=== PATIENT | female | born 1945 | race African-American/Black ===

== ENCOUNTER 2018-02-13 16:59 | Inpatient (IN) | payer MEDICARE, BC ==
[~2018-02-13] VITALS: Ht 175.3 cm; Wt 72.8 kg
[2018-02-13 17:39] LABS: BASOPHILS % (AUTO) 0.9 % (0.0-2.0); EOSINOPHILS % (AUTO) 0.1 % (0.0-3.0); HEMOGLOBIN 11.2 G/DL (12.0-16.0); LYMPHOCYTES % (AUTO) 7.6 % (20.0-45.0); MEAN CORPUSCULAR VOLUME 92 FL (80-99); MONOCYTES % (AUTO) 7.8 % (1.0-10.0); NEUTROPHILS % (AUTO) 83.6 % (45.0-75.0); PLATELET COUNT 163 K/UL (150-450); RED BLOOD COUNT 3.82 M/UL (4.20-5.40); RED CELL DISTRIBUTION WIDTH 16.8 % (11.6-14.8); WHITE BLOOD COUNT 10.3 K/UL (4.8-10.8)
[2018-02-13 17:47] LABS: APPEARANCE,URINE CLEAR; BILIRUBIN, URINE NEGATIVE (NEGATIVE); COLOR,URINE PALE YELLOW; GLUCOSE, URINE (UA) NEGATIVE (NEGATIVE); KETONES,URINE NEGATIVE (NEGATIVE); LEUKOCYTE ESTERASE ,URINE 2+ (NEGATIVE); NITRITE,URINE NEGATIVE (NEGATIVE); PH,URINE 6 (4.5-8.0); PROTEIN,URINE 3+ (NEGATIVE); UROBILINOGEN,URINE NORMAL MG/DL (0.0-1.0)
[2018-02-13 17:50] LABS: ANION GAP 7 mmol/L (5-15); BLOOD UREA NITROGEN 47 mg/dL (7-18); CALCIUM 9.6 MG/DL (8.5-10.1); CARBON DIOXIDE 25 MMOL/L (21-32); CHLORIDE 106 MMOL/L (98-107); CREATININE 2.3 MG/DL (0.55-1.30); POTASSIUM 4.7 MMOL/L (3.5-5.1); SODIUM 138 MMOL/L (136-145)
[2018-02-13 18:02] LABS: ALANINE AMINOTRANSFERASE 52 U/L (12-78); ALBUMIN 2.2 G/DL (3.4-5.0); ALBUMIN/GLOBULIN RATIO 0.4 (1.0-2.7); ALKALINE PHOSPHATASE 388 U/L (46-116); ASPARTATE AMINO TRANSFERASE 84 U/L (15-37); BILIRUBIN,TOTAL 0.5 MG/DL (0.2-1.0); CKMB 0.6 NG/ML (0.0-3.6); CREATINE KINASE 70 U/L (26-308)
[2018-02-13 18:03] VITALS: BP 155/81
--- NOTE | 2018-02-13 18:04 | Emergency Room Report ---
History of Present Illness General Chief Complaint: Altered Level of Consciousness Source: Medical Record, EMS Present Illness HPI 72-year-old female presents ED for evaluation. Patient coming from [facility] facility for increased lethargy and weakness 1 day. Upon arrival patient lethargic and not answering questions. No signs of distress. No reported fall or head injury. History of recent CVA. Afebrile. No reported chest pain or shortness of breath. No other aggravating relieving factors. No other associated symptoms Allergies: Coded Allergies: No Known Allergies (Unverified , 02/13/18) Patient History Past Medical History: DM, CVA/TIA Past Surgical History: none Pertinent Family History: none Social History: Denies: smoking, alcohol use, drug use Now: No Immunizations: UTD Reviewed Nursing Documentation: PMH: Agreed; PSxH: Agreed Nursing Documentation-PMH Past Medical History: No History, Except For Hx Diabetes: Yes Hx Cerebrovascular Accident: Yes - 2017 Review of Systems All Other Systems: limited Physical Exam Vital Signs Date Time Temp Pulse Resp B/P (MAP) Pulse Ox O2 Delivery O2 Flow Rate FiO2 02/13/18 16:56 98.2 84 22 152/94 99 Room Air 98.2 Sp02 EP Interpretation: reviewed, normal General Appearance: lethargic Head: normocephalic Eyes: bilateral eye normal inspection, bilateral eye PERRL ENT: hearing grossly normal Neck: normal inspection Respiratory: chest non-tender, lungs clear, normal breath sounds, speaking full sentences Cardiovascular #1: regular rate, rhythm, no edema Gastrointestinal: normal bowel sounds, non tender, soft, non-distended, no guarding, no rebound Rectal: black stool Genitourinary: no CVA tenderness Musculoskeletal: normal inspection Neurologic: other - lethargic Psychiatric: other - lethargic Skin: normal inspection Lymphatic: normal inspection Medical Decision Making Diagnostic Impression: Primary Impression: Altered level of consciousness Additional Impressions: CVA (cerebral vascular accident) Qualified Codes: I63.511 - Cerebral infarction due to unspecified occlusion or stenosis of right middle cerebral artery Renal insufficiency ER Course Hospital Course 72-year-old female presents with increased lethargy, weakness 1 day. Recent history of CVA Differential diagnoses include: RI/unstable angina, SVT/Vtach/AFib, CVA/TIA Clinical course Patient placed on stretcher. on property assessment monitor. After initial history and physical I ordered labs, EKG, chest x-ray, and CT head labs reviewed- BUN/Cr elevated, troponins negative, no leukocytosis, Hb/Hct stable EKG - afib no acute ischemic changes interpreted by me Chest x-ray- no acute process CT brain - large right infarct involving occipital parietal and temporal lobe as well as brain stem. Appears subacute. Minimal mass effect. No midline shift. Discussed findings with admitting physicians. Patient had been admitted to [facility] in early January for MCA infarct on the right side. This is likely the same and not an acute infarct However patient does appear more lethargic than baseline. Will require admission with serial neuro exams on ; patient is full code but selective treatment Case discussed with Dr. Pryor and he agreed to accept the patient to his service for further care and support I. I feel this is a highly complex case requiring extensive working including EKG/Rhythm strip, Xray/CT/US, Blood/urine lab work, repeat exams while in ED, and administration of strong opiates/narcotics for pain control, admission to hospital or close patient follow up. Diagnosis - CVA, ALOC, renal insuficiency admitted to floor in serious condition Labs Test 02/13/18 17:25 White Blood Count 10.3 K/UL (4.8-10.8) Red Blood Count 3.82 M/UL (4.20-5.40) Hemoglobin 11.2 G/DL (12.0-16.0) Hematocrit 35.0 % (37.0-47.0) Mean Corpuscular Volume 92 FL (80-99) Mean Corpuscular Hemoglobin 29.4 PG (27.0-31.0) Mean Corpuscular Hemoglobin Concent 32.1 G/DL (32.0-36.0) Red Cell Distribution Width 16.8 % (11.6-14.8) Platelet Count 163 K/UL (150-450) Mean Platelet Volume 6.8 FL (6.5-10.1) Neutrophils (%) (Auto) 83.6 % (45.0-75.0) Lymphocytes (%) (Auto) 7.6 % (20.0-45.0) Monocytes (%) (Auto) 7.8 % (1.0-10.0) Eosinophils (%) (Auto) 0.1 % (0.0-3.0) Basophils (%) (Auto) 0.9 % (0.0-2.0) Urine Color Pale yellow Urine Appearance Clear Urine pH 6 (4.5-8.0) Urine Specific [place] 1.010 (1.005-1.035) Urine Protein 3+ (NEGATIVE) Urine Glucose (UA) Negative (NEGATIVE) Urine Ketones Negative (NEGATIVE) Urine Occult Blood 1+ (NEGATIVE) Urine Nitrite Negative (NEGATIVE) Urine Bilirubin Negative (NEGATIVE) Urine Urobilinogen Normal MG/DL (0.0-1.0) Urine Leukocyte Esterase 2+ (NEGATIVE) Urine RBC 2-4 /HPF (0 - 2) Urine WBC 5-10 /HPF (0 - 2) Urine Squamous Epithelial Cells Few /LPF (NONE/OCC) Urine Bacteria Few /HPF (NONE) Sodium Level 138 MMOL/L (136-145) Potassium Level 4.7 MMOL/L (3.5-5.1) Chloride Level 106 MMOL/L (98-107) Carbon Dioxide Level 25 MMOL/L (21-32) Anion Gap 7 mmol/L (5-15) Blood Urea Nitrogen 47 mg/dL (7-18) Creatinine 2.3 MG/DL (0.55-1.30) Estimat Glomerular Filtration Rate 25.5 mL/min (>60) Glucose Level 158 MG/DL (74-106) Lactic Acid Level 1.20 mmol/L (0.4-2.0) Calcium Level 9.6 MG/DL (8.5-10.1) Total Bilirubin 0.5 MG/DL (0.2-1.0) Aspartate Amino Transf (AST/SGOT) 84 U/L (15-37) Alanine Aminotransferase (ALT/SGPT) 52 U/L (12-78) Alkaline Phosphatase 388 U/L (46-116) Total Creatine Kinase 70 U/L (26-308) Creatine Kinase MB 0.6 NG/ML (0.0-3.6) Creatine Kinase MB Relative Index 0.8 Troponin I 0.000 ng/mL (0.000-0.056) Pro-B-Type Natriuretic Peptide 48649 pg/mL (0-125) Total Protein 7.8 G/DL (6.4-8.2) Albumin 2.2 G/DL (3.4-5.0) Globulin 5.6 g/dL Albumin/Globulin Ratio 0.4 (1.0-2.7) EKG Diagnostic Results Rate: normal Rhythm: other - afib ST Segments: no acute changes ASA given to the pt in ED: No Rhythm Strip Diag. Results EP Interpretation: yes Rhythm: no PVC's, no ectopy Chest X-Ray Diagnostic Results Chest X-Ray Diagnostic Results : Chest X-Ray Ordered: Yes # of Views/Limited/Complete: 1 View Indication: Other - ams EP Interpretation: Yes Interpretation: no consolidation, no effusion, no pneumothorax, no acute cardiopulmonary disease, other - pacemaker Impression: No acute disease Last Vital Signs Date Time Temp Pulse Resp B/P (MAP) Pulse Ox O2 Delivery O2 Flow Rate FiO2 02/13/18 16:56 98.2 84 22 152/94 99 Room Air 98.2 Status: improved Disposition: ADMITTED INPATIENT Condition: Serious Referrals: Shane Hall MD (PCP) Omer Salgado MD Feb 13, 2018 18:04
[2018-02-13] MEDS ORDERED: NEPHROVITE1 TAB ORAL (19:07)
[2018-02-13] MEDS ORDERED: HYDRALAZINE HCL10 MG ORAL (19:07)
[2018-02-13] MEDS ORDERED: GUAIFENESI100 MG/5 M ORAL (19:07)
[2018-02-13] MEDS ORDERED: CALCITRIOL0.25 MCG PO (19:07)
[2018-02-13] MEDS ORDERED: AMLODIPINE BESY10 MG ORAL (19:07)
[2018-02-13] MEDS ORDERED: ZYRTEC10 MG ORAL (19:07)
[2018-02-13] MEDS ORDERED: LANTUS SOL100 UNIT/1 SUBQ (19:07)
[2018-02-13] MEDS ORDERED: SENNA8.6 M2 PO (19:07)
[2018-02-13] MEDS ORDERED: DOCUSATE SODIU100 MG ORAL (19:07)
[2018-02-13] MEDS ORDERED: WARFARIN SODIUM2 MG ORAL (19:07)
[2018-02-13] MEDS ORDERED: GLUTOSE 1537.5 GM PO (19:07)
[2018-02-13] MEDS ORDERED: MILK OF MA400 MG/51 ORAL (19:07)
[2018-02-13] MEDS ORDERED: ISOSORBIDE DINI10 MG ORAL (19:07)
[2018-02-13] MEDS ORDERED: SIMETHICONE80 MG ORAL (19:07)
[2018-02-13] MEDS ORDERED: HYDRALAZINE HCL25 M1 ORAL (19:07)
[2018-02-13] MEDS ORDERED: BETHANECHOL CHL10 MG ORAL (19:07)
[2018-02-13] MEDS ORDERED: CREON DR 24,001 EACH PO (19:07)
[2018-02-13] MEDS ORDERED: ARMOUR THYROID30 MG ORAL (19:07)
[2018-02-13] MEDS ORDERED: TRAMADOL HCL50 MG ORAL (19:07)
[2018-02-13] MEDS ORDERED: ZOFRAN ODT8 MG ORAL (19:07)
[2018-02-13] MEDS ORDERED: HUMALOG100 UNIT/3 SUBQ (19:07)
[2018-02-13] MEDS ORDERED: MIRTAZAPINE15 M3 ORAL (19:07)
[2018-02-13] MEDS ORDERED: ATORVASTATIN CA40 MG ORAL (19:07)
[2018-02-13] MEDS ORDERED: ACETAMINOPHEN325 M1 ORAL (19:07)
[2018-02-13] MEDS ORDERED: FLEET ENEMA133 ML RECTAL (19:07)
[2018-02-13] MEDS ORDERED: MIRALAX17 G2 ORAL (19:07)
[2018-02-13] MEDS ORDERED: LIDOCAINE700 M1 TP (19:07)
[2018-02-13] MEDS ORDERED: ANUCORT-HC25 MG RECTAL (19:07)
[2018-02-13] MEDS ORDERED: CARVEDILOL25 MG ORAL (19:07)
[2018-02-13 19:20] LABS: INR 2.5 (0.9-1.1)
[2018-02-13 20:28] VITALS: BP 157/81
[2018-02-13] MEDS: D5 1/2NS 1,000 ML IV SCH (23:11)
[2018-02-14] VITALS: BP 157/83
[2018-02-14 04:00] VITALS: BP 158/67
[2018-02-14 08:00] VITALS: BP 115/67
[2018-02-14 08:04] LABS: BASOPHILS % (AUTO) 0.8 % (0.0-2.0); EOSINOPHILS % (AUTO) 0.2 % (0.0-3.0); HEMATOCRIT 31.9 % (37.0-47.0); HEMOGLOBIN 10.2 G/DL (12.0-16.0); LYMPHOCYTES % (AUTO) 8.5 % (20.0-45.0); MEAN CORPUSCULAR VOLUME 91 FL (80-99); MONOCYTES % (AUTO) 8.7 % (1.0-10.0); NEUTROPHILS % (AUTO) 81.8 % (45.0-75.0); PLATELET COUNT 156 K/UL (150-450); RED BLOOD COUNT 3.53 M/UL (4.20-5.40); RED CELL DISTRIBUTION WIDTH 16.2 % (11.6-14.8); WHITE BLOOD COUNT 9.7 K/UL (4.8-10.8)
--- NOTE | 2018-02-14 08:36 | Diagnostic Imaging Report ---
Indications: Altered mental status Technique: Spiral acquisitions obtained through the brain. Angled axial and coronal 5 x 5 mm slices were reconstructed. Total dose length product 1428.87 mGycm. CTDI vol(s) 70.38 mGy. Dose reduction achieved using automated exposure control Comparison: None. Findings: . Large area of cytotoxic edema occupies most of the right parietal lobe, most of the right frontal lobe, and a significant portion of the right temporal lobe, with some involvement of the lateral aspect of the basal ganglia as well as the anterior limb of the right internal capsule and caudate head. This results in mass effect, with attenuation of the ipsilateral lateral ventricle and approximately 3 mm of right to left midline shift. No associated hemorrhage. There is mild age-related enlargement of ventricles and extra assess spaces. Mcclendon-white differentiation elsewhere in the brain is preserved. There is some low-attenuation in the right dayana and midbrain. Suspect this is artifactual The calvarium is intact. Impression: Large right middle cerebral artery distribution subacute infarct. Resultant mass effect, as described No evidence of acute intracranial hemorrhage Low-attenuation in the right side of the dayana and midbrain. Suspect artifactual due to beam hardening artifact but lacunar infarct, old if real, not excludable This agrees with the preliminary interpretation provided overnight by [facility] teleradiology service. The CT scanner at [facility] is accredited by the [employer] and the scans are performed using protocols designed to limit radiation exposure to as low as reasonably achievable to attain images of sufficient resolution adequate for diagnostic evaluation.
--- NOTE | 2018-02-14 08:37 | Diagnostic Imaging Report ---
Indication: Chest pain Technique: One view of the chest Comparison: none Findings: There is a left chest port catheter and a right chest pacemaker. Lungs and pleural spaces are clear. Heart is mildly enlarged. Calcifications are seen in the bilateral axillae Impression: No acute process Cardiomegaly Other findings as noted
[2018-02-14 08:46] LABS: ALANINE AMINOTRANSFERASE 52 U/L (12-78); ALBUMIN 1.9 G/DL (3.4-5.0); ALBUMIN/GLOBULIN RATIO 0.4 (1.0-2.7); ALKALINE PHOSPHATASE 355 U/L (46-116); ANION GAP 10 mmol/L (5-15); ASPARTATE AMINO TRANSFERASE 86 U/L (15-37); BILIRUBIN,TOTAL 0.6 MG/DL (0.2-1.0); BLOOD UREA NITROGEN 44 mg/dL (7-18); CALCIUM 8.7 MG/DL (8.5-10.1); CARBON DIOXIDE 24 MMOL/L (21-32); CHLORIDE 107 MMOL/L (98-107); CREATININE 2.3 MG/DL (0.55-1.30); POTASSIUM 4.1 MMOL/L (3.5-5.1); SODIUM 141 MMOL/L (136-145)
[2018-02-14] MEDS: Heparin 5000 units/ml inj SUBQ SCH ×2 (10:32→21:20)
[2018-02-14 12:00] VITALS: BP 139/76
[2018-02-14] MEDS: D5 1/2NS 1,000 ML IV SCH (12:14)
--- NOTE | 2018-02-14 12:25 | History and Physical ---
History of Present Illness General Reason for Hospitalization: Altered Level of Consciousness Present Illness HPI 72 y/o female with a recent R CVA in mid-December 2017 at [facility], L hemiparesis, metastatic pancreatic CA (dx 2007, treated w/ neoadjuvant chemo) s/ p pyloric sparing Whipple resection in 2009 at [facility] with recurrence in 2016 s/p chemotherapy), T2DM, HTN, HLD, heart block s/p PPM, renal artery stenosis s/p stent 2015, CAD s/p PCI in 2009, A. fibb (on coumadin), CKD, and anemia presented from [facility] for increased lethargy for 1 day. Per son, patient had presented to [facility] 1 month ago for a UTI and suffered from a large CVA 1-2 days after admission. Patient was transferred to [facility] for acute rehab for 2 weeks and then was transferred to [facility] for further rehab last week. Per son, patient was talking, eating, and moving her RUE and RLE at [facility] but has been declining ever since her admission at [facility]. Son states that patient yesterday started having slowed speech and increased lethargy, which prompted them to come to the ER. In the ER, CT head was done, which showed large right MCA distribution subacute infarct with resultant mass effect. No e/o acute intracranial hemorrhage. Low-attenuation in the right side of the dayana and midbrain. Suspect artifiactual due to beam hardening artifact but lacunar infarct, old if real, not excludable. Upon review of records, recent CT head was done at [facility] on 01/30/18, which showed right posterior frontal parietal and temporal occipital chronic infarction with no hemorrhage. At this time, patient remains lethargic and uncooperative but appears to be in no acute distress. Allergies: Coded Allergies: No Known Allergies (Unverified , 02/13/18) Medication History Scheduled Amlodipine Besylate* (Amlodipine Besylate*), 10 MG ORAL DAILY, (Reported) Atorvastatin Calcium* (Atorvastatin Calcium*), 80 MG ORAL BEDTIME, (Reported) Bethanechol* (Bethanechol*), 10 MG ORAL THREE TIMES A DAY, (Reported) Calcitriol (Calcitriol), 0.25 MCG PO DAILY, (Reported) Carvedilol* (Carvedilol*), 25 MG ORAL BID, (Reported) Docusate Sodium* (Docusate Sodium*), 100 MG ORAL TWICE A DAY, (Reported) Hydralazine Hcl* (Hydralazine Hcl*), 25 MG ORAL EVERY 8 HOURS, (Reported) Hydrocortisone (Hydrocortisone), 1 SUPP RECTAL TWICE A DAY, (Reported) Insulin Glargine (Lantus), 7 SUBQ BEFORE BREAKFAST, (Reported) Insulin Lispro (Humalog), 0 SUBQ AC+HS, (Reported) Isosorbide Dinitrate* (Isordil*), 10 MG ORAL TID, (Reported) Lipase/Protease/Amylase (Creon Dr 24,000 Units Capsule), 1 EACH PO TID, ( Reported) Mirtazapine* (Mirtazapine*), 15 MG ORAL BEDTIME, (Reported) Polyethylene Glycol 3350* (Miralax*), 17 GM ORAL DAILY, (Reported) Sennosides (Senna), 8.6 MG PO QHS, (Reported) Thyroid* (Varney Thyroid*), 30 MG ORAL DAILY, (Reported) Vitamin B Cmplx/Vit C/Folic AC (Nephro-Thomas Tablet), 1 TAB ORAL DAILY, (Reported ) Warfarin Sod* (Warfarin Sod*), 2 MG ORAL DAILY, (Reported) Scheduled PRN Acetaminophen* (Acetaminophen 325MG Tablet*), 650 MG ORAL Q6H PRN for Mild Pain (Pain Scale 1-3), (Reported) Cetirizine Hcl* (Zyrtec*), 5 MG ORAL DAILY PRN for Itching, (Reported) Dextrose (Glutose 15), 40 % PO DAILY PRN for HYPOGLCEMIA, (Reported) Guaifenesin* (Guaifenesin), 5 ML ORAL Q6H PRN for For Cough, (Reported) Hydralazine Hcl* (Hydralazine Hcl*), 10 MG ORAL EVERY 6 HOURS PRN for For High Blood Pressure, (Reported) Lidocaine (Lidocaine), 700 MG TP PRN PRN for For Pain, (Reported) Magnesium Hydroxide* (Milk Of Magnesia*), 30 ML ORAL DAILY PRN for Constipation, (Reported) Na Phos,M-B/Na Phos,Di-Ba* (Fleet Enema*), 133 ML RECTAL DAILY PRN for Constipation, (Reported) Ondansetron Odt* (Zofran Odt*), 4 MG ORAL Q8HR PRN for Nausea & Vomiting, ( Reported) Simethicone* (Simethicone*), 80 MG ORAL QID PRN for GAS PAIN, (Reported) Tramadol Hcl* (Ultram*), 25 MG ORAL Q6H PRN for Moderate Pain (Pain Scale 4-6), (Reported) Tramadol Hcl* (Ultram*), 50 MG ORAL Q6H PRN for Severe Pain (Pain Scale 7-10), ( Reported) Discontinued Medications Acetaminophen* (Acetaminophen 325MG Tablet*), 325 MG ORAL Q6H PRN for Mild Pain (Pain Scale 1-3), (Reported) Discontinued Reason: Medication dose changed Patient History History Provided By: Family Member, Medical Record Healthcare decision maker N Resuscitation status Full Code Advanced Directive on File No Review of Systems ROS Narrative Unable to obtain due to mental status Physical Exam General Appearance: no apparent distress, alert, lethargic HEENT: normocephalic, atraumatic, other - left facial droop Neck: non-tender, normal alignment, supple Respiratory/Chest: chest wall non-tender, lungs clear, normal breath sounds Cardiovascular/Chest: normal peripheral pulses, regularly irregular Skin Exam: normal pigmentation, warm/dry Neurologic: alert, other - unable to examine. patient non-cooperative Last 24 Hour Vital Signs Date Time Temp Pulse Resp B/P (MAP) Pulse Ox O2 Delivery O2 Flow Rate FiO2 02/14/18 09:00 Room Air 02/14/18 08:00 99.5 89 20 115/67 (83) 99 99.5 02/14/18 04:00 99.6 94 20 158/67 (97) 98 99.6 02/14/18 00:00 98.3 89 20 157/83 (107) 99 98.3 02/13/18 21:47 Room Air 02/13/18 20:45 98.4 89 17 157/81 100 Room Air 98.4 02/13/18 20:28 98.4 89 17 157/81 100 Room Air 98.4 02/13/18 18:03 98.4 89 17 155/81 100 Room Air 98.4 02/13/18 16:56 98.2 84 22 152/94 99 Room Air 98.2 Intake and Output 02/13/18 02/14/18 19:00 07:00 Intake Total 1000 ml 525 ml Output Total 300 ml 1200 ml Balance 700 ml -675 ml Intake IV Total 1000 ml 525 ml Output Urine Total 300 ml 1200 ml # Voids 1 # Bowel Movements 1 Laboratory Tests Test 02/13/18 17:25 02/14/18 07:20 White Blood Count 10.3 K/UL (4.8-10.8) 9.7 K/UL (4.8-10.8) Red Blood Count 3.82 M/UL (4.20-5.40) L 3.53 M/UL (4.20-5.40) L Hemoglobin 11.2 G/DL (12.0-16.0) L 10.2 G/DL (12.0-16.0) L Hematocrit 35.0 % (37.0-47.0) L 31.9 % (37.0-47.0) L Mean Corpuscular Volume 92 FL (80-99) 91 FL (80-99) Mean Corpuscular Hemoglobin 29.4 PG (27.0-31.0) 28.9 PG (27.0-31.0) Mean Corpuscular Hemoglobin Concent 32.1 G/DL (32.0-36.0) 31.9 G/DL (32.0-36.0) L Red Cell Distribution Width 16.8 % (11.6-14.8) H 16.2 % (11.6-14.8) H Platelet Count 163 K/UL (150-450) 156 K/UL (150-450) Mean Platelet Volume 6.8 FL (6.5-10.1) 7.4 FL (6.5-10.1) Neutrophils (%) (Auto) 83.6 % (45.0-75.0) H 81.8 % (45.0-75.0) H Lymphocytes (%) (Auto) 7.6 % (20.0-45.0) L 8.5 % (20.0-45.0) L Monocytes (%) (Auto) 7.8 % (1.0-10.0) 8.7 % (1.0-10.0) Eosinophils (%) (Auto) 0.1 % (0.0-3.0) 0.2 % (0.0-3.0) Basophils (%) (Auto) 0.9 % (0.0-2.0) 0.8 % (0.0-2.0) Prothrombin Time 24.7 SEC (9.30-11.50) H Prothromb Time International Ratio 2.5 (0.9-1.1) H Activated Partial Thromboplast Time 42 SEC (23-33) H Urine Color Pale yellow Urine Appearance Clear Urine pH 6 (4.5-8.0) Urine Specific [place] 1.010 (1.005-1.035) Urine Protein 3+ (NEGATIVE) H Urine Glucose (UA) Negative (NEGATIVE) Urine Ketones Negative (NEGATIVE) Urine Occult Blood 1+ (NEGATIVE) H Urine Nitrite Negative (NEGATIVE) Urine Bilirubin Negative (NEGATIVE) Urine Urobilinogen Normal MG/DL (0.0-1.0) Urine Leukocyte Esterase 2+ (NEGATIVE) H Urine RBC 2-4 /HPF (0 - 2) H Urine WBC 5-10 /HPF (0 - 2) H Urine Squamous Epithelial Cells Few /LPF (NONE/OCC) Urine Bacteria Few /HPF (NONE) Sodium Level 138 MMOL/L (136-145) 141 MMOL/L (136-145) Potassium Level 4.7 MMOL/L (3.5-5.1) 4.1 MMOL/L (3.5-5.1) Chloride Level 106 MMOL/L (98-107) 107 MMOL/L (98-107) Carbon Dioxide Level 25 MMOL/L (21-32) 24 MMOL/L (21-32) Anion Gap 7 mmol/L (5-15) 10 mmol/L (5-15) Blood Urea Nitrogen 47 mg/dL (7-18) H 44 mg/dL (7-18) H Creatinine 2.3 MG/DL (0.55-1.30) H 2.3 MG/DL (0.55-1.30) H Estimat Glomerular Filtration Rate 25.5 mL/min (>60) 25.5 mL/min (>60) Glucose Level 158 MG/DL (74-106) H 238 MG/DL (74-106) H Lactic Acid Level 1.20 mmol/L (0.4-2.0) Calcium Level 9.6 MG/DL (8.5-10.1) 8.7 MG/DL (8.5-10.1) Total Bilirubin 0.5 MG/DL (0.2-1.0) 0.6 MG/DL (0.2-1.0) Aspartate Amino Transf (AST/SGOT) 84 U/L (15-37) H 86 U/L (15-37) H Alanine Aminotransferase (ALT/SGPT) 52 U/L (12-78) 52 U/L (12-78) Alkaline Phosphatase 388 U/L (46-116) H 355 U/L (46-116) H Total Creatine Kinase 70 U/L (26-308) Creatine Kinase MB 0.6 NG/ML (0.0-3.6) Creatine Kinase MB Relative Index 0.8 Troponin I 0.000 ng/mL (0.000-0.056) Pro-B-Type Natriuretic Peptide 21166 pg/mL (0-125) H Total Protein 7.8 G/DL (6.4-8.2) 6.8 G/DL (6.4-8.2) Albumin 2.2 G/DL (3.4-5.0) L 1.9 G/DL (3.4-5.0) L Globulin 5.6 g/dL 4.9 g/dL Albumin/Globulin Ratio 0.4 (1.0-2.7) L 0.4 (1.0-2.7) L Thyroid Stimulating Hormone (TSH) 2.592 uiU/mL (0.358-3.740) Height (Feet): 6 Height (Inches): 1.00 Weight (Pounds): 152 Medications Current Medications Medications (Trade) Dose Ordered Sig/Zee Route PRN Reason Start Time Stop Time Status Last Admin Dose Admin Dextrose/Sodium Chloride 1,000 ml @ 75 mls/hr [id number] IV 02/13/18 23:00 03/15/18 22:59 02/14/18 12:14 Heparin Sodium (Porcine) (Heparin 5000 units/ml) 5,000 units EVERY 12 HOURS SUBQ 02/14/18 09:00 03/16/18 08:59 02/14/18 10:32 Mirtazapine (Remeron) 15 mg BEDTIME ORAL 02/14/18 21:00 03/16/18 20:59 UNV Assessment/Plan Status: stable, progressing Assessment/Plan Assessment: 72 y/o female with h/o recent R CVA s/p L hemiparesis presented from [facility] for increased lethargy. #Toxic metabolic encephalopathy #R CVA in mid-December 2017 at [facility] SM s/p L hemiparesis #A. fibb (on coumadin) #CKD #Anemia #Hypothyroidism #Metastatic pancreatic CA (dx 2007, treated w/ neoadjuvant chemo) s/p pyloric sparing Whipple resection in 2009 at [facility] with recurrence in 2015 s/p chemotherapy) #T2DM #HTN #HLD #h/o heart block s/p PPM #h/o renal artery stenosis s/p stent 2015 #h/o CAD s/p PCI in 2009 Plan: - Admit to inpatient - Neurology consulted - F/u urine cx - Check vitamin B12, folate, vitamin D, TSH, A1c, lipid panel - EKG showing A. fibb, rate controlled - Continue coumadin per pharmacy dosing for goal at 2-3 - PT/OT - ST eval - NPO - IVF - Continue home meds - SSi - no chemotherapy for pancreatic CA per family due to multiple comorbidities and frailty - avoid mind-altering meds at this time Son: Christie [phone] DVT ppx: on coumadin Code Status: Full Hospital Classification Declaration: Based on this initial evaluation, and depending on the patient's clinical course, I anticipate that this patient will require hospitalization for 3-4 days for AMS and close respiratory/hemodynamic monitoring. Disposition: Once the patient is stable to leave the hospital, I anticipate the patient will likely be discharged to the following environment: [facility] I spend 72 minutes on this patient's case, and 44 minutes were dedicated to counseling and/or care coordination. Discussed with patient/family, nursing staff, SW/CM, neurologist regarding clinical status, treatment course, and disposition planning. Mela Hernandez NP Feb 14, 2018 12:25
[2018-02-14] MEDS: OLANZapine 2.5mg tab ORAL SCH (12:42)
[2018-02-14 16:00] VITALS: BP 151/82
--- NOTE | 2018-02-14 16:00 | Cardiology Report ---
APPROVED REPORT EKG Measurement Heart [id number] Atrial fibrillation with premature ventricular or aberrantly conducted complexes Left axis deviation Abnormal ECG
[2018-02-14] MEDS: NovoLOG Insulin Flexpen SUBQ SCH ×2 (16:59→21:26)
--- NOTE | 2018-02-14 18:31 | Consultation ---
Consult Note Consult Note NEUROLOGY CONSULTATION: Full note dictated #[id number] 72 y/o, BF of ?H who has a PH of hypertension, DL, heart block s/p pacemaker, CAD s/p PCI and stent placement, AF on Coumadin and pancreatic cancer. 1 month ago was taken to [facility] for UTI and had a large right MCA stroke there. Was Tx to CRI and improved. Then Tx to NH were she started to deteriorate. Was brought to [facility] for decline in cognitive and motor function. ON EXAM: Global aphasia LUE plegia, minimal LLE movement. Severe RUE and RLE weakness. Pathologically brisk DTRs L>R Extensor plantars bilaterally IMPRESSION: Suspect bilateral strokes - Right brain 1 month ago and left brain more recently. Less likely ictal phenomenon. REC: Continue present Rx. If Pacemaker is MRI safe would get MRI if not repeat CT on Monday. EEG. Observe. Riki Jacobs M.D., M.S.P.H. RIKI JACOBS Feb 14, 2018 18:31
[2018-02-14 20:00] VITALS: BP 181/104
[2018-02-15] VITALS: BP 155/76
--- NOTE | 2018-02-15 00:45 | Consultation ---
DATE OF CONSULTATION: 02/14/2018 NEUROLOGY CONSULTATION CONSULTING PHYSICIAN: Tevin Jacobs M.D. REQUESTING PHYSICIAN: Shane Hall M.D. HISTORY: Ms. Janee Mcpherson is a 72-year-old, black lady, of unknown handedness, who does have a past history of hypertension, dyslipidemia, heart block - status post pacemaker implantation, coronary artery disease- status post percutaneous intervention and stent placement, atrial fibrillation - for which she is on Coumadin, and pancreatic cancer. Approximately 1 month ago, she was taken to [facility] for a urinary tract infection. 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 She was stabilized there and then sent to the [facility] for rehabilitation and improved. She was then sent to a care home. While she was at the care home, she started to deteriorate. The problem got much worse and there was a significant decline in cognitive and motor function and as a result of that, she was brought into the [facility] emergency room on 02/13/2018 and has since been admitted. At this point in time, the patient is aphasic and mute. She is unable to communicate in any manner and is significantly weak in all four extremities. Further history is an unobtainable. PAST MEDICAL HISTORY: Significant for hypertension, dyslipidemia, heart block - status post pacemaker implantation, coronary artery disease - status post percutaneous intervention and stent placement, atrial fibrillation on Coumadin and pancreatic cancer. FAMILY HISTORY: Unavailable. PERSONAL HISTORY: Home: She lives in care home. Work: Unknown. Habits: Unknown. MEDICATIONS: Mirtazapine 50 mg at bedtime, insulin, Zyprexa 2.5 mg daily, and heparin for DVT prophylaxis. PHYSICAL EXAMINATION: GENERAL: She is a well-developed, relatively well-nourished, black lady, lying in bed, in no acute distress. VITAL SIGNS: Pulse 84/minute, blood pressure 139/76 mmHg, respirations 20/minute, and temperature 98.7 degrees Fahrenheit. HEAD: Normocephalic and atraumatic. EENT: Examination benign. NECK: No neck rigidity was observed. NEUROLOGICAL EXAMINATION: MENTAL STATUS EXAMINATION: She was awake, but not alert. She was aphasic and mute, making further mental status testing impossible. SPEECH: Could not be tested, as she was mute. LANGUAGE: She was unable to comprehend simple commands. She was unable to say any words. She seemed to be globally aphasic. CRANIAL NERVE EXAMINATION: II: She did blink to threat. It was impossible to determine if she had a visual field deficit or not. III, IV & : The external ocular movements were present on oculocephalic maneuvers. The pupils were 3 mm in diameter, equal, round, regular, and reactive to light. She did have a right gaze preference. V & VII: The corneal reflex was diminished on the left side compared to the right. She also had left greater than right VII central facial paresis. VIII: She seemed to be able to hear loud sounds and had no nystagmus. IX & X: The gag reflex was present, but significantly delayed. XI: The sternocleidomastoids and trapezii did function. XII: The tongue was in the midline. MOTOR SYSTEM: The tone was flaccid in the left upper extremity and normal in other extremities. Examination of muscle mass revealed no focal wasting. Examination of power was impossible to perform on individual muscle groups. The left upper extremity was plegic. The left lower extremity was severely paretic with minimal withdrawal on deep painful stimuli. The right upper and lower extremities were also significantly paretic with minimal movement and withdrawal to deep pain. SENSORY EXAMINATION: She responded to deep pain with more robust responses on right-sided stimulation than left-sided stimulation, though all four extremities were not normal. REFLEXES: 3+ on the left and 2++ on the right at the biceps, triceps, brachioradialis, and knees. 0 at both ankles. The plantar responses were extensor bilaterally. COORDINATION, STANCE & GAIT: Could not be tested. DIAGNOSTIC IMPRESSION: 1. Ms. Janee Mcpherson is a 72-year-old, black lady, of unknown handedness, who does have a past history of hypertension, dyslipidemia, heart block - status post pacemaker implantation, coronary artery disease - status post percutaneous intervention and stent placement, atrial fibrillation, for which she was on Coumadin in the past and pancreatic cancer who approximately 1 month ago was taken to [facility] for a urinary tract infection and had a large right middle cerebral artery stroke there, and then was transferred to [facility] where she improved, and then to a care home where she started to deteriorate. She was brought into the [facility] emergency room for a decline in cognitive and motor function on 02/13/2018 and has since worsened more. 2. On neurological examination, at this time, she demonstrates a global aphasia, left upper extremity plegia, minimal left lower extremity movements, severe right upper extremity and right lower extremity weakness, pathologically brisk deep tendon reflexes, which are brisker on the left than on the right, and extensor plantar responses bilaterally. 3. The CT scan of the brain without contrast performed at [facility] on 02/13/2018 reveals a complete right middle cerebral artery territory infarct and in addition an infarct involving the right occipital area, which may be old. In addition, there is questionable brainstem pathology seen in the right dayana and midbrain. 4. Laboratory data obtained thus far revealed that she is significantly anemic with a hemoglobin of 10.2 grams. The chemistry panel reveals a BUN elevated at 44 with a creatinine of 2.3. Her blood glucose elevated to 238, AST elevated to 86, alkaline phosphatase is elevated to 355, albumin low at 1.9, TSH is normal at 2.59. The urinalysis reveals 2+ leukocyte esterase, 2-4 RBCs and 5-10 WBCs per high power field. 5. The patient's history and neurological examination are most compatible with possible bilateral cerebral infarcts. The right brain infarct that occurred approximately 1 month ago is well visualized on the CT scan of the brain. There is a possibility that a left infarct is not visible yet, a less likely etiology would be an ictal phenomenon causing this kind of bilateral picture. RECOMMENDATIONS: 1. Agree with management thus far. 2. Would continue present management. 3. If the patient's pacemaker is MRI safe, then an MRI should be obtained. If not, then a repeat CT scan of the brain should be obtained on Monday. 4. An EEG will be ordered to evaluate the patient for ongoing ictal or interictal phenomena and to determine the degree and type of cerebral dysfunction. 5. The patient should be continued on physical, occupational and speech and language therapy. 6. The patient will be observed closely and depending on how she fares over the next day or so, further recommendations will be given. Thank you for entrusting me with the care of Ms. Mcpherson. I shall follow her with you. Tevin Jacobs M.D., M.S.P.H. DR: PRIYA JOB#: [id number] MTDD
[2018-02-15] MEDS: D5 1/2NS 1,000 ML IV SCH ×3 (01:40→22:33)
[2018-02-15 04:00] VITALS: BP 125/73
[2018-02-15 06:52] LABS: BASOPHILS % (AUTO) 0.8 % (0.0-2.0); EOSINOPHILS % (AUTO) 0.1 % (0.0-3.0); HEMATOCRIT 35.2 % (37.0-47.0); MEAN CORPUSCULAR VOLUME 92 FL (80-99); MONOCYTES % (AUTO) 8.3 % (1.0-10.0); NEUTROPHILS % (AUTO) 82.8 % (45.0-75.0); PLATELET COUNT 205 K/UL (150-450); RED BLOOD COUNT 3.83 M/UL (4.20-5.40); RED CELL DISTRIBUTION WIDTH 16.4 % (11.6-14.8); WHITE BLOOD COUNT 10.4 K/UL (4.8-10.8)
[2018-02-15] MEDS: NovoLOG Insulin Flexpen SUBQ SCH ×4 (06:54→21:57)
[2018-02-15 07:41] LABS: ALANINE AMINOTRANSFERASE 56 U/L (12-78); ALBUMIN/GLOBULIN RATIO 0.4 (1.0-2.7); ALKALINE PHOSPHATASE 369 U/L (46-116); ANION GAP 12 mmol/L (5-15); ASPARTATE AMINO TRANSFERASE 64 U/L (15-37); BILIRUBIN,TOTAL 0.6 MG/DL (0.2-1.0); BLOOD UREA NITROGEN 46 mg/dL (7-18); CALCIUM 9.1 MG/DL (8.5-10.1); CARBON DIOXIDE 22 MMOL/L (21-32); CHLORIDE 107 MMOL/L (98-107); CREATININE 2.4 MG/DL (0.55-1.30); HDL CHOLESTEROL 44 MG/DL (40-60); POTASSIUM 3.6 MMOL/L (3.5-5.1); SODIUM 141 MMOL/L (136-145); TRIGLYCERIDES 74 MG/DL (30-150)
[2018-02-15 07:58] LABS: CHOLESTEROL 115 MG/DL (< 200)
[2018-02-15 08:00] VITALS: BP 146/77
[2018-02-15] MEDS: OLANZapine 2.5mg tab ORAL SCH (09:00)
[2018-02-15] MEDS: Heparin 5000 units/ml inj SUBQ SCH ×2 (09:01→22:03)
--- NOTE | 2018-02-15 11:24 | Physician Query ---
--------- THIS DOCUMENT IS A PERMANENT PART OF THE MEDICAL RECORD --------- PLEASE COMPLETE DOCUMENT BEFORE SIGNING Dear Dr. Hall Date: 02/15/2018 [employer]CD[employer] Name: Ju Ramos [employer]CD[employer] Phone No.: [phone] Exercise your independent professional judgment when responding to the query. Questions asked do not imply a particular answer is desired or expected. We greatly appreciate your clarification on this issue. CLINICAL DOCUMENTATION STATES: Patient with CVA w Hemiplegia admitted with encephalopathy. CLINICAL FINDINGS SHOW: Albumin: 1.9 ----->2.2, Lymphocytes: 7.6 ------> 8.5 Please select the most appropriate option: [] Mild [] Moderate [] Protein/Calorie Malnutrition [] Protein Malnutrition >Serum albumin 2.8 to 3.4 g/dL or Pre-albumin 5 to 7 mg/dl (3) >Inadequate nutritional intake (1, 2, 3, 4) >NPO > 5 days >Weight loss: 5% in 1 month or 7.5% in 3 months or 10% in 6 months (1,3,4) >BMI 16 to 18.4 or Weight <90 of ideal body weight (1,2,3,4) [] Severe Malnutrition (Protein/Calorie) [] Severe Protein Malnutrition >Serum Albumin < 2.8 g/dL (1,2) >Lymphocytes < 1500/uL (2) >Inadequate nutritional intake3 , high stress e.g. major trauma, sepsis, pancreatitis, camp etc. >Decubitus ulcers (1,2) , skin breakdown(2), easy hair pluckability >Weight <80% standard for height (2) >Triceps skin fold <3 mm2 >Mid-arm muscle circumference <25 cm2 >Creatinine-height index <60% standard (2) [] Hypoalbuminemia [] Emancipated w/ Malnutrition [] Kwashiorkor (rare in [place]) [] Marasmus [] Other [] Unable to determine [] Not Applicable Condition Present on Admission: [] Yes [] No [ ] Unable to determine Please also document in your Progress Notes and/or Discharge Summary and indicate if the condition was present on admission. M.D. References: 1 [facility] [place] Board. (2007). Nutritional support strategy for protein -energy malnutrition in the elderly. Clinical Practice Guidelines. 2 Driss Pollack (2011). Malnutrition and nutritional assessment. In Elio Garsia (18th Ed.) Freddy's Principle of Internal Medicine ([id number]) [place], [place]: [facility] 3 Aura Weiss (2001). Clinical Nutrition: Protein-energy malnutrition in the inpatient. [place] Journal, vol. 165 no. 10 (pp. 4284- 1341 ). 4 Efren Vincent (2012). Geriactric Nutrition: Nutritional Issues in Older Adults. [email or web address] [email or web address]
[2018-02-15 12:00] VITALS: BP 156/88
--- NOTE | 2018-02-15 12:37 | GI Initial Consult Note ---
History of Present Illness General Date patient seen: Feb 15, 2018 Time patient seen: 12:29 Reason for Hospitalization: Altered Level of Consciousness Referring physician: CHELSI HURT Reason for Consultation: PEG EVALUATION Present Illness HPI 72-year-old female presents ED for evaluation. Patient coming from halfway facility for increased lethargy and weakness 1 day. Upon arrival patient lethargic and not answering questions. No signs of distress. No reported fall or head injury. History of recent CVA. Afebrile. No reported chest pain or shortness of breath. No other aggravating relieving factors. No other associated symptoms. GI consulted for PEG evaluation. Pt seen, awake non verbal NAD with no active s /sx of N/V/D. Hx of CVA with suspected bilateral stroke with weakness. Per RN report, patient has had no PO intake for the past [address] evaluation unable to performed due to the patients inability to participate. NGT placed today. She presents today with anemia, AST elevation, renal disease and INR elevation. Noted that patient takes coumadin at home, but is currently not on it. Unknown history of endoscopy / colonoscopy. Home Meds Reported Medications Simethicone* (SIMETHICONE*) 80 Mg Tab.chew, 80 MG ORAL QID PRN for GAS PAIN, TAB 0 Refills 02/13/18 Ondansetron Odt* (ZOFRAN ODT*) 8 Mg Tab.rapdis, 4 MG ORAL Q8HR PRN for Nausea & Vomiting, TAB 02/13/18 Lidocaine (Lidocaine) 1 Each Adh..patch, 700 MG TP PRN PRN for For Pain, PATCH 02/13/18 Hydralazine Hcl* (HYDRALAZINE HCL*) 10 Mg Tablet, 10 MG ORAL EVERY 6 HOURS PRN for For High Blood Pressure, TAB 02/13/18 Guaifenesin* (GUAIFENESIN) 100 Mg/5 Ml Liquid, 5 ML ORAL Q6H PRN for For Cough, ML 0 Refills 02/13/18 Na Phos,M-B/Na Phos,Di-Ba* (FLEET ENEMA*) 133 Ml Enema, 133 ML RECTAL DAILY PRN for Constipation, ML 0 Refills 02/13/18 Dextrose (GLUTOSE 15) 37.5 Gm Gel..gram., 40 % PO DAILY PRN for HYPOGLCEMIA, GM 02/13/18 Cetirizine Hcl* (ZYRTEC*) 10 Mg Tablet, 5 MG ORAL DAILY PRN for Itching, TAB 0 Refills 02/13/18 Magnesium Hydroxide* (MILK OF MAGNESIA*) 400 Mg/5 Ml Oral.susp, 30 ML ORAL DAILY PRN for Constipation, ML 02/13/18 Tramadol Hcl* (ULTRAM*) 50 Mg Tablet, 50 MG ORAL Q6H PRN for Severe Pain (Pain Scale 7-10), TAB 0 Refills 02/13/18 Tramadol Hcl* (ULTRAM*) 50 Mg Tablet, 25 MG ORAL Q6H PRN for Moderate Pain ( Pain Scale 4-6), TAB 0 Refills 02/13/18 Acetaminophen* (ACETAMINOPHEN 325MG TABLET*) 325 Mg Tablet, 650 MG ORAL Q6H PRN for Mild Pain (Pain Scale 1-3), TAB 02/13/18 Warfarin Sod* (WARFARIN SOD*) 2 Mg Tablet, 2 MG ORAL DAILY for CVA PPX, TAB 02/13/18 Thyroid* (ARMOUR THYROID*) 30 Mg Tablet, 30 MG ORAL DAILY for SUPPLEMENT, TAB 0 Refills 02/13/18 Sennosides (SENNA) 8.6 Mg Tablet, 8.6 MG PO QHS for FOR BOWEL REGIMEN, TAB 02/13/18 Vitamin B Cmplx/Vit C/Folic AC (Nephro-Thomas Tablet) 0.8 Mg Tablet, 1 TAB ORAL DAILY for SUPPLEMENT, TAB 0 Refills 02/13/18 Polyethylene Glycol 3350* (MIRALAX*) 17 Gm Powd.pack, 17 GM ORAL DAILY for STOOL SOFTENER, PACKET 02/13/18 Lipase/Protease/Amylase (SHAVONNE OCLE 24,000 UNITS CAPSULE) 1 Each Capsule., 1 EACH PO TID for PANCREATIC INSUFFICIENCY , CAP 02/13/18 Mirtazapine* (MIRTAZAPINE*) 15 Mg Tablet, 15 MG ORAL BEDTIME for DEPRESSION , TAB 02/13/18 Isosorbide Dinitrate* (ISORDIL*) 10 Mg Tablet, 10 MG ORAL TID for ANGINA, TAB 0 Refills 02/13/18 Insulin Lispro (HUMALOG) 100 Unit/1 Ml Insuln.pen, 0 SUBQ AC+HS for DM, EA 0 Refills 02/13/18 Insulin Glargine (LANTUS) 100 Unit/1 Ml Insuln.pen, 7 SUBQ BEFORE BREAKFAST, #1 EA 0 Refills 02/13/18 Hydrocortisone (Hydrocortisone) 28.35 Gm Oint...g., 1 SUPP RECTAL TWICE A DAY for ANORECTAL INFLAMMATION for 14 Days, SUPP 02/13/18 Hydralazine Hcl* (HYDRALAZINE HCL*) 25 Mg Tablet, 25 MG ORAL EVERY 8 HOURS for HTN, TAB 0 Refills 02/13/18 Docusate Sodium* (DOCUSATE SODIUM*) 100 Mg Capsule, 100 MG ORAL TWICE A DAY, CAP 02/13/18 Carvedilol* (CARVEDILOL*) 25 Mg Tablet, 25 MG ORAL BID, TAB 02/13/18 Calcitriol (CALCITRIOL) 0.25 Mcg Capsule, 0.25 MCG PO DAILY for HYPOCALCEMIA, CAP 02/13/18 Bethanechol* (BETHANECHOL*) 10 Mg Tablet, 10 MG ORAL THREE TIMES A DAY for URINARY RETNETION , TAB 02/13/18 Atorvastatin Calcium* (ATORVASTATIN CALCIUM*) 40 Mg Tablet, 80 MG ORAL BEDTIME for HYPERCHOLESTEROLEMIA, TAB 02/13/18 Amlodipine Besylate* (AMLODIPINE BESYLATE*) 10 Mg Tablet, 10 MG ORAL DAILY for HTN, TAB 02/13/18 Discontinued Reported Medications Acetaminophen* (ACETAMINOPHEN 325MG TABLET*) 325 Mg Tablet, 325 MG ORAL Q6H PRN for Mild Pain (Pain Scale 1-3), TAB 02/13/18 Med list reviewed/reconciled: Yes Allergies: Coded Allergies: No Known Allergies (Unverified , 02/13/18) Patient History Limited by: medical condition History Provided By: Medical Record PMH Narrative Past Medical History: DM, CVA/TIA Past Surgical History: none Pertinent Family History: none Social History: Denies: smoking, alcohol use, drug use Now: No Immunizations: UTD Reviewed Nursing Documentation: PMH: Agreed; PSxH: Agreed Nursing Documentation-PM Past Medical History: No History, Except For Hx Diabetes: Yes Hx Cerebrovascular Accident: Yes - 2017 Review of Systems All Other Systems: negative except mentioned in HPI Physical Exam Vital Signs Date Time Temp Pulse Resp B/P (MAP) Pulse Ox O2 Delivery O2 Flow Rate FiO2 02/13/18 16:56 98.2 84 22 152/94 99 Room Air 98.2 Sp02 EP Interpretation: reviewed, normal Labs Laboratory Tests Test 02/15/18 05:10 White Blood Count 10.4 K/UL (4.8-10.8) Red Blood Count 3.83 M/UL (4.20-5.40) L Hemoglobin 11.0 G/DL (12.0-16.0) L Hematocrit 35.2 % (37.0-47.0) L Mean Corpuscular Volume 92 FL (80-99) Mean Corpuscular Hemoglobin 28.8 PG (27.0-31.0) Mean Corpuscular Hemoglobin Concent 31.3 G/DL (32.0-36.0) L Red Cell Distribution Width 16.4 % (11.6-14.8) H Platelet Count 205 K/UL (150-450) Mean Platelet Volume 6.8 FL (6.5-10.1) Neutrophils (%) (Auto) 82.8 % (45.0-75.0) H Lymphocytes (%) (Auto) 8.0 % (20.0-45.0) L Monocytes (%) (Auto) 8.3 % (1.0-10.0) Eosinophils (%) (Auto) 0.1 % (0.0-3.0) Basophils (%) (Auto) 0.8 % (0.0-2.0) Sodium Level 141 MMOL/L (136-145) Potassium Level 3.6 MMOL/L (3.5-5.1) Chloride Level 107 MMOL/L (98-107) Carbon Dioxide Level 22 MMOL/L (21-32) Anion Gap 12 mmol/L (5-15) Blood Urea Nitrogen 46 mg/dL (7-18) H Creatinine 2.4 MG/DL (0.55-1.30) H Estimat Glomerular Filtration Rate 24.2 mL/min (>60) Glucose Level 308 MG/DL (74-106) H Hemoglobin A1c 7.1 % (4.3-6.0) H Calcium Level 9.1 MG/DL (8.5-10.1) Total Bilirubin 0.6 MG/DL (0.2-1.0) Aspartate Amino Transf (AST/SGOT) 64 U/L (15-37) H Alanine Aminotransferase (ALT/SGPT) 56 U/L (12-78) Alkaline Phosphatase 369 U/L (46-116) H Total Protein 7.2 G/DL (6.4-8.2) Albumin 2.0 G/DL (3.4-5.0) L Globulin 5.2 g/dL Albumin/Globulin Ratio 0.4 (1.0-2.7) L Triglycerides Level 74 MG/DL (30-150) Cholesterol Level 115 MG/DL (< 200) LDL Cholesterol 65 mg/dL (<100) HDL Cholesterol 44 MG/DL (40-60) Cholesterol/HDL Ratio 2.6 (3.3-4.4) L Vitamin B12 Level 993 PG/ML (193-986) H Vitamin D 25-Hydroxy Pending 25-Hydroxy Vitamin D2 Pending 25-Hydroxy Vitamin D3 Pending Folate 81.8 NG/ML (8.6-58.9) H Thyroid Stimulating Hormone (TSH) 2.396 uiU/mL (0.358-3.740) General Appearance: well appearing, no apparent distress, alert, thin Head: normocephalic EENT: PERRL/EOMI, normal ENT inspection Neck: supple Respiratory: normal breath sounds, no respiratory distress Cardiovascular: normal rate Gastrointestinal: non tender, soft, normal bowel sounds, non-distended, ngt Rectal: deferred Genitourinary: no CVA tenderness Neurologic: alert Skin: normal inspection, normal color, no rash, warm/dry, palpation normal, well hydrated Lymphatic: normal inspection, no adenopathy Current Medications Current Medications Medications (Trade) Dose Ordered Sig/Zee Route PRN Reason Start Time Stop Time Status Last Admin Dose Admin Dextrose (Dextrose 50%) 25 ml STAT PRN IV Hypoglycemia 02/14/18 13:00 03/16/18 12:59 Dextrose (Dextrose 50%) 50 ml STAT PRN IV Hypoglycemia 02/14/18 13:00 03/16/18 12:59 Dextrose/Sodium Chloride 1,000 ml @ 75 mls/hr [id number] IV 02/13/18 23:00 03/15/18 22:59 02/14/18 12:14 Heparin Sodium (Porcine) (Heparin 5000 units/ml) 5,000 units EVERY 12 HOURS SUBQ 02/14/18 09:00 03/16/18 08:59 02/15/18 09:01 Insulin Aspart (NovoLOG) BEFORE MEALS AND HS SUBQ 02/14/18 16:30 03/16/18 16:29 02/15/18 12:18 GI: Plan Problems: (1) Severe malnutrition (2) Dehydration (3) Encounter for PEG (percutaneous endoscopic gastrostomy) (4) Anemia (5) Failure to thrive (6) Altered level of consciousness (7) CVA (cerebral vascular accident) Plan ST evaluation noted >> recommend long-term non oral feedings called son to discuss PEG evaluation, but did not supervisor picking crew the phone NGT placed today PEG if family agrees supportive care IV/PO hydration electrolyte corrections GTFs per RD fu labs Discussed with Dr. May. Thank you for this patient referral, we will follow. The patient was seen and examined at bedside and all new and available data was reviewed in the patients chart. I agree with the above findings, impression and plan. (Patient seen earlier today. Signature stamp does not reflect patient encounter time.). - MD Nereyda [facility] ARCHITECTURE INSTRUCTOR Feb 15, 2018 12:37
[2018-02-15] MEDS ORDERED: traMADol 50mg tab NG PRN ×2 (13:45→14:45)
--- NOTE | 2018-02-15 14:04 | General Progress Note ---
Assessment/Plan Status: stable, progressing Assessment/Plan Assessment: 72 y/o female with h/o recent R CVA s/p L hemiparesis presented from [facility] for increased lethargy. #Toxic metabolic encephalopathy #R CVA in mid-December [address] [facility] SM s/p L hemiparesis and L side neglect #A. fibb (on coumadin) - held coumadin for now #CKD #Anemia #Hypothyroidism #Metastatic pancreatic CA (dx 2007, treated w/ neoadjuvant chemo) s/p pyloric sparing Whipple resection in [address] [facility] with recurrence in 2016 s/p chemotherapy) #T2DM #HTN #HLD #h/o heart block s/p PPM (Medtronic placed in 2012) #h/o renal artery stenosis s/p stent 2015 #h/o CAD s/p PCI in 2009 Plan: - Neurology consulted, appreciate rec's - Cardiology consulted for PPM eval if MRI safe - GI consulted for dysphagia, possible PEG placement - F/u urine cx - Check vitamin B12, folate, vitamin D, TSH, A1c, lipid panel - EKG showing A. fibb, rate controlled - hold coumadin until repeat CT head tomorrow or MRI brain tomorrow is negative for bleed. Can start with lovenox if family agreeable to proceed with PEG - F/u STAT MRI brain w/o contrast (PPM is Medtronic - MRI safe) - PT/OT - ST eval -- failed swallow study x 2 - NG tube - NPO - IVF - Continue home meds - SSi - no chemotherapy for pancreatic CA per family due to multiple comorbidities and frailty - avoid mind-altering meds at this time Son: Christie [phone] DVT ppx: SCDs Code Status: Full Hospital Classification Declaration: Based on this initial evaluation, and depending on the patient's clinical course, I anticipate that this patient will require hospitalization for 3-4 days for AMS and close respiratory/hemodynamic monitoring. Disposition: Once the patient is stable to leave the hospital, I anticipate the patient will likely be discharged to the following environment: [facility] I spend 32 minutes on this patient's case, and 24 minutes were dedicated to counseling and/or care coordination. Discussed with patient/family, nursing staff, SW/CM, neurologist, GI, and cardiology regarding clinical status, treatment course, and disposition planning. Subjective Date patient seen: Feb 15, 2018 Allergies: Coded Allergies: No Known Allergies (Unverified , 02/13/18) Subjective - failed ST eval x 2 - on NG tube feeds now - seen by neurology - contacted son to determine patient's PPM to see if it is MRI safe but no reply - low grade fevers, HDS Objective Last 24 Hour Vital Signs Date Time Temp Pulse Resp B/P (MAP) Pulse Ox O2 Delivery O2 Flow Rate FiO2 02/15/18 12:00 99.0 89 20 156/88 (110) 99 99.0 02/15/18 09:00 Room Air 02/15/18 08:00 98.6 100 20 146/77 (100) 98 98.6 02/15/18 04:00 98.2 86 20 125/73 (90) 98 98.2 02/15/18 00:00 100.6 78 20 155/76 (102) 99 100.6 02/14/18 21:00 Room Air 02/14/18 20:00 100.0 96 20 181/104 (129) 99 100.0 02/14/18 16:00 98.5 67 20 151/82 (105) 97 98.5 Intake and Output 02/14/18 02/15/18 19:00 07:00 Intake Total 900 ml Output Total 1725 ml 450 ml Balance -825 ml -450 ml Intake IV Total 900 ml Output Urine Total 1725 ml 450 ml # Bowel Movements 5 2 Laboratory Tests 02/15/18 05:10: White Blood Count 10.4, Red Blood Count 3.83L, Hemoglobin 11.0L, Hematocrit 35.2L, Mean Corpuscular Volume 92, Mean Corpuscular Hemoglobin 28.8, Mean Corpuscular Hemoglobin Concent 31.3L, Red Cell Distribution Width 16.4H, Platelet Count 205, Mean Platelet Volume 6.8, Neutrophils (%) (Auto) 82.8H, Lymphocytes (%) (Auto) 8.0L, Monocytes (%) (Auto) 8.3, Eosinophils (%) (Auto) 0.1, Basophils (%) (Auto) 0.8, Sodium Level 141, Potassium Level 3.6, Chloride Level 107, Carbon Dioxide Level 22, Anion Gap 12, Blood Urea Nitrogen 46H, Creatinine 2.4H, Estimat Glomerular Filtration Rate 24.2, Glucose Level 308H, Hemoglobin A1c 7.1H, Calcium Level 9.1, Total Bilirubin 0.6, Aspartate Amino Transf (AST/SGOT) 64H, Alanine Aminotransferase (ALT/SGPT) 56, Alkaline Phosphatase 369H, Total Protein 7.2, Albumin 2.0L, Globulin 5.2, Albumin/ Globulin Ratio 0.4L, Triglycerides Level 74, Cholesterol Level 115, LDL Cholesterol 65, HDL Cholesterol 44, Cholesterol/HDL Ratio 2.6L, Vitamin B12 Level 993H, Vitamin D 25-Hydroxy [Pending], 25-Hydroxy Vitamin D2 [Pending], 25- Hydroxy Vitamin D3 [Pending], Folate 81.8H, Thyroid Stimulating Hormone (TSH) 2.396 Height (Feet): 6 Height (Inches): 1.00 Weight (Pounds): 152 General Appearance: no apparent distress, alert, other EENT: PERRL/EOMI, other Neck: non-tender, normal alignment, supple Cardiovascular: normal peripheral pulses, normal rate, regularly irregular Respiratory/Chest: chest wall non-tender, lungs clear, normal breath sounds Abdomen: normal bowel sounds, non tender, soft Neurologic: alert, other - tracks eyes only to right side. left side neglect. unable to move extremities x 4 Skin: normal pigmentation, warm/dry Mela Hernandez NP Feb 15, 2018 14:04
--- NOTE | 2018-02-15 14:24 | Diagnostic Imaging Report ---
Indication: Post nasogastric tube placement Technique: One view of the chest Comparison: none Findings: Interim placement of nasogastric tube, tip which is coiled in the hypopharynx, does not even enter the esophagus The heart remains mildly enlarged. Lungs and pleural spaces remain clear. Left chest port catheter, right chest pacemaker again demonstrated Impression: Malpositioned nasogastric tube, coiled in the hypopharynx. Removal and reinsertion recommended. This critical value finding was phoned to patient's nurse at the time of interpretation Other stable findings as described
[2018-02-15] MEDS ORDERED: HydrALAZINE 10mg Tab NG PRN (14:30)
[2018-02-15] MEDS ORDERED: guaiFENesin 100mg/5ml Liq ud ORAL PRN (14:30)
[2018-02-15] MEDS ORDERED: guaiFENesin 100mg/5ml Liq ud NG PRN ×2 (14:30→14:45)
[2018-02-15] MEDS ORDERED: Acetaminophen 650mg/20.3ml NG PRN (14:30)
[2018-02-15] MEDS ORDERED: Milk of Magnesia 30ml Ud NG PRN (14:30)
[2018-02-15] MEDS: HydrALAZINE 25mg tab NG SCH ×2 (15:00→22:00)
[2018-02-15 16:00] VITALS: BP_SYST 160; BP_SYST 163; BP_DIAS 88
--- NOTE | 2018-02-15 16:39 | Diagnostic Imaging Report ---
Indication: Abnormal renal function tests Technique: Grayscale and duplex images of the kidneys, retroperitoneum, and bladder were obtained. Comparison: none Findings: Right kidney measures 8.5 cm in length. Left kidney measures 7.1 cm in length. Both kidneys demonstrate increased echogenicity. No hydronephrosis. Echogenic focus within the lower pole left renal sinus measures 5 mm in diameter. No focal abnormality seen on the right. Normal inferior vena cava. Bladder is nearly empty, contains a Mueller catheter, with residual volume of 26 mL. Trace ascites is noted. Incidentally noted is background increased hepatic echogenicity, with multiple round hypoechoic lesions scattered throughout the liver Impression: Increased bilateral renal echogenicity, consistent with medical renal disease. Negative for hydronephrosis Possible nonobstructive left lower pole renal calculus Mueller catheter within the bladder. 24 mm bladder volume despite the presence of the Mueller catheter Increased hepatic echogenicity, likely fatty change. Numerous hypoechoic nodules scattered throughout the liver. Most likely represents neoplasm, most likely metastatic. The possibility of multiple microabscesses should also be considered Trace ascites Findings discussed by phone with Dr. May at the time of interpretation.
[2018-02-15] MEDS: Pancrease Cap NG SCH (18:00)
[2018-02-15] MEDS: Docusate 100mg/10ml Liq NG SCH (18:00)
[2018-02-15] MEDS: Bethanechol 10mg Tab NG SCH (18:00)
--- NOTE | 2018-02-15 19:14 | Neurology Progress Note ---
Interim History Interim History Interim History Ms. Mcpherson is awake today. She makes eye contact on the right side. She however is mute and unable to communicate in any manner. 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 Her Pacemaker is MRI safe. Review of Systems Neuro Review of Systems Unable to obtain. Objective Physical Exam Last Vital Signs Date Time Temp Pulse Resp B/P (MAP) Pulse Ox O2 Delivery O2 Flow Rate FiO2 02/15/18 16:00 98.6 106 20 160/88 (112) 97 98.6 02/15/18 09:00 Room Air Laboratory Tests Test 02/15/18 05:10 White Blood Count 10.4 K/UL (4.8-10.8) Red Blood Count 3.83 M/UL (4.20-5.40) L Hemoglobin 11.0 G/DL (12.0-16.0) L Hematocrit 35.2 % (37.0-47.0) L Mean Corpuscular Volume 92 FL (80-99) Mean Corpuscular Hemoglobin 28.8 PG (27.0-31.0) Mean Corpuscular Hemoglobin Concent 31.3 G/DL (32.0-36.0) L Red Cell Distribution Width 16.4 % (11.6-14.8) H Platelet Count 205 K/UL (150-450) Mean Platelet Volume 6.8 FL (6.5-10.1) Neutrophils (%) (Auto) 82.8 % (45.0-75.0) H Lymphocytes (%) (Auto) 8.0 % (20.0-45.0) L Monocytes (%) (Auto) 8.3 % (1.0-10.0) Eosinophils (%) (Auto) 0.1 % (0.0-3.0) Basophils (%) (Auto) 0.8 % (0.0-2.0) Sodium Level 141 MMOL/L (136-145) Potassium Level 3.6 MMOL/L (3.5-5.1) Chloride Level 107 MMOL/L (98-107) Carbon Dioxide Level 22 MMOL/L (21-32) Anion Gap 12 mmol/L (5-15) Blood Urea Nitrogen 46 mg/dL (7-18) H Creatinine 2.4 MG/DL (0.55-1.30) H Estimat Glomerular Filtration Rate 24.2 mL/min (>60) Glucose Level 308 MG/DL (74-106) H Hemoglobin A1c 7.1 % (4.3-6.0) H Calcium Level 9.1 MG/DL (8.5-10.1) Total Bilirubin 0.6 MG/DL (0.2-1.0) Aspartate Amino Transf (AST/SGOT) 64 U/L (15-37) H Alanine Aminotransferase (ALT/SGPT) 56 U/L (12-78) Alkaline Phosphatase 369 U/L (46-116) H Total Protein 7.2 G/DL (6.4-8.2) Albumin 2.0 G/DL (3.4-5.0) L Globulin 5.2 g/dL Albumin/Globulin Ratio 0.4 (1.0-2.7) L Triglycerides Level 74 MG/DL (30-150) Cholesterol Level 115 MG/DL (< 200) LDL Cholesterol 65 mg/dL (<100) HDL Cholesterol 44 MG/DL (40-60) Cholesterol/HDL Ratio 2.6 (3.3-4.4) L Vitamin B12 Level 993 PG/ML (193-986) H Vitamin D 25-Hydroxy Pending 25-Hydroxy Vitamin D2 Pending 25-Hydroxy Vitamin D3 Pending Folate 81.8 NG/ML (8.6-58.9) H Thyroid Stimulating Hormone (TSH) 2.396 uiU/mL (0.358-3.740) Neurologic Exam Objective PHYSICAL EXAMINATION: GENERAL: She is a well-developed, relatively well-nourished, black lady, lying in bed, in no acute distress. HEAD: Normocephalic and atraumatic. EENT: Examination benign. NECK: No neck rigidity was observed. NEUROLOGICAL EXAMINATION: MENTAL STATUS EXAMINATION: She was awake and looked more alert. She was aphasic and mute, making further mental status testing impossible. SPEECH: Could not be tested, as she was mute. LANGUAGE: She was unable to comprehend simple commands. She was unable to say any words. She seemed to be globally aphasic. CRANIAL NERVE EXAMINATION: II: She did blink to threat. She had a definite left visual field deficit. III, IV & : The external ocular movements were present on oculocephalic maneuvers. The pupils were 3 mm in diameter, equal, round, regular, and reactive to light. She did have a right gaze preference. V & VII: The corneal reflex was diminished on the left side compared to the right. She also had left greater than right VII central facial paresis. VIII: She seemed to be able to hear sounds and had no nystagmus. IX & X: The gag reflex was present, but significantly delayed. XI: The sternocleidomastoids and trapezii did function. XII: The tongue was in the midline. MOTOR SYSTEM: The tone was flaccid in the left upper extremity and normal in other extremities. Examination of muscle mass revealed no focal wasting. Examination of power was impossible to perform on individual muscle groups. The left upper extremity was plegic. The left lower extremity was severely paretic with minimal withdrawal on deep painful stimuli. The right upper and lower extremities were also significantly paretic with minimal movement and withdrawal to deep pain. SENSORY EXAMINATION: She responded to deep pain with more robust responses on right-sided stimulation than left-sided stimulation, though all four extremities were not normal. REFLEXES: 3+ on the left and 2++ on the right at the biceps, triceps, brachioradialis, and knees. 0 at both ankles. The plantar responses were extensor bilaterally. COORDINATION, STANCE & GAIT: Could not be tested. Impression/Recommendations Diagnostic Impression 1. Ms. Janee Mcpherson is a 72-year-old, black lady, of unknown handedness, who does have a past history of hypertension, dyslipidemia, heart block - status post pacemaker implantation, coronary artery disease - status post percutaneous intervention and stent placement, atrial fibrillation, for which she was on Coumadin in the past and pancreatic cancer who approximately 1 month ago was taken to [facility] for a urinary tract infection and had a large right middle cerebral artery stroke there, and then was transferred to [facility] where she improved, and then to a shelter where she started to deteriorate. She was brought into the [facility] emergency room for a decline in cognitive and motor function on 02/13/2018 and has since worsened more. 2. She is awake today. She makes eye contact on the right side. She however is mute and unable to communicate in any manner. 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 Her Pacemaker is MRI safe. 3. On neurological examination, at this time, she demonstrates a global aphasia , has a left visual field cut, has a left greater than right VII central facial paresis, left upper extremity plegia, minimal left lower extremity movements, severe right upper extremity and right lower extremity weakness, pathologically brisk deep tendon reflexes, which are brisker on the left than on the right, and extensor plantar responses bilaterally. 4. The CT scan of the brain without contrast performed at [facility] on 02/13/2018 reveals a complete right middle cerebral artery territory infarct and in addition an infarct involving the right occipital area, which may be old. In addition, there is questionable brainstem pathology seen in the right dayana and midbrain. 5. Laboratory data obtained thus far revealed that she is significantly anemic with a hemoglobin of 10.2 grams. The chemistry panel reveals a BUN elevated at 44 with a creatinine of 2.3. Her blood glucose elevated to 238, AST elevated to 86, alkaline phosphatase is elevated to 355, albumin low at 1.9, TSH is normal at 2.59. The urinalysis reveals 2+ leukocyte esterase, 2-4 RBCs and 5- 10 WBCs per high power field. 6. The patient's history and neurological examination are most compatible with possible bilateral cerebral infarcts. The right brain infarct that occurred approximately 1 month ago is well visualized on the CT scan of the brain. There is a possibility that a left infarct is not visible yet, a less likely etiology would be an ictal phenomenon causing this kind of bilateral picture. Recommendations 1. Continue present management. 2. MRI of the brain - the patient's pacemaker is MRI safe. 3. Await EEG to evaluate the patient for ongoing ictal or interictal phenomena and to determine the degree and type of cerebral dysfunction. 4. Physical, occupational and speech and language therapy. 5. Hold anticoagulation until MRI of brain is done. 6. Observe closely. Riki Jacobs M.D., M.S.P.H. RIKI JACOBS Feb 15, 2018 19:14
[2018-02-15 20:00] VITALS: BP 154/71
--- NOTE | 2018-02-15 20:07 | General Progress Note ---
Assessment/Plan Assessment/Plan encephalopathy due to [facility] -dc Remeron -start Zyprexa 2.5mg qhs Subjective Date patient seen: Feb 15, 2018 Neurologic/Psychiatric: Reports: anxiety, depressed Allergies: Coded Allergies: No Known Allergies (Unverified , 02/13/18) Objective Last 24 Hour Vital Signs Date Time Temp Pulse Resp B/P (MAP) Pulse Ox O2 Delivery O2 Flow Rate FiO2 02/15/18 16:00 98.6 106 20 160/88 (112) 97 98.6 02/15/18 16:00 98.6 106 20 163/88 (113) 97 98.6 02/15/18 15:00 163/88 02/15/18 15:00 163/88 02/15/18 12:00 99.0 89 20 156/88 (110) 99 99.0 02/15/18 09:00 Room Air 02/15/18 08:00 98.6 100 20 146/77 (100) 98 98.6 02/15/18 04:00 98.2 86 20 125/73 (90) 98 98.2 02/15/18 00:00 100.6 78 20 155/76 (102) 99 100.6 02/14/18 21:00 Room Air Intake and Output 02/14/18 02/15/18 19:00 07:00 Intake Total 900 ml 75 ml Output Total 1725 ml 450 ml Balance -825 ml -375 ml Intake IV Total 900 ml 75 ml Output Urine Total 1725 ml 450 ml # Bowel Movements 5 2 Laboratory Tests 02/15/18 05:10: White Blood Count 10.4, Red Blood Count 3.83L, Hemoglobin 11.0L, Hematocrit 35.2L, Mean Corpuscular Volume 92, Mean Corpuscular Hemoglobin 28.8, Mean Corpuscular Hemoglobin Concent 31.3L, Red Cell Distribution Width 16.4H, Platelet Count 205, Mean Platelet Volume 6.8, Neutrophils (%) (Auto) 82.8H, Lymphocytes (%) (Auto) 8.0L, Monocytes (%) (Auto) 8.3, Eosinophils (%) (Auto) 0.1, Basophils (%) (Auto) 0.8, Sodium Level 141, Potassium Level 3.6, Chloride Level 107, Carbon Dioxide Level 22, Anion Gap 12, Blood Urea Nitrogen 46H, Creatinine 2.4H, Estimat Glomerular Filtration Rate 24.2, Glucose Level 308H, Hemoglobin A1c 7.1H, Calcium Level 9.1, Total Bilirubin 0.6, Aspartate Amino Transf (AST/SGOT) 64H, Alanine Aminotransferase (ALT/SGPT) 56, Alkaline Phosphatase 369H, Total Protein 7.2, Albumin 2.0L, Globulin 5.2, Albumin/ Globulin Ratio 0.4L, Triglycerides Level 74, Cholesterol Level 115, LDL Cholesterol 65, HDL Cholesterol 44, Cholesterol/HDL Ratio 2.6L, Vitamin B12 Level 993H, Vitamin D 25-Hydroxy [Pending], 25-Hydroxy Vitamin D2 [Pending], 25- Hydroxy Vitamin D3 [Pending], Folate 81.8H, Thyroid Stimulating Hormone (TSH) 2.396 Height (Feet): 6 Height (Inches): 1.00 Weight (Pounds): 152 General Appearance: no apparent distress, alert, confused Wai Lopez MD Feb 15, 2018 20:07
[2018-02-15] MEDS: Carvedilol 25mg Tab NG SCH (21:00)
[2018-02-15] MEDS ORDERED: Atorvastatin 80mg tab NG SCH (21:00)
--- NOTE | 2018-02-15 21:27 | Consultation ---
History of Present Illness General Date patient seen: Feb 15, 2018 Chief Complaint: Altered Level of Consciousness Referring physician: CHELSI HURT Reason for Consultation: PEG EVALUATION Present Illness HPI Ms. Janee Mcpherson is a 72-year-old female with a past history of hypertension, dyslipidemia, heart block - status post pacemaker implantation - medtronic PPM, coronary artery disease- status post percutaneous intervention and stent placement, atrial fibrillation - for which she is on Coumadin, and pancreatic cancer. She had CVA one months ago R MCA territory and then went to rehab and now started to decline/deteriorate and thus brought back to hospital. In the ER, CT head was done, which showed large right MCA distribution subacute infarct with resultant mass effect Allergies: Coded Allergies: No Known Allergies (Unverified , 02/13/18) Medication History Scheduled Amlodipine Besylate* (Amlodipine Besylate*), 10 MG ORAL DAILY, (Reported) Atorvastatin Calcium* (Atorvastatin Calcium*), 80 MG ORAL BEDTIME, (Reported) Bethanechol* (Bethanechol*), 10 MG ORAL THREE TIMES A DAY, (Reported) Calcitriol (Calcitriol), 0.25 MCG PO DAILY, (Reported) Carvedilol* (Carvedilol*), 25 MG ORAL BID, (Reported) Docusate Sodium* (Docusate Sodium*), 100 MG ORAL TWICE A DAY, (Reported) Hydralazine Hcl* (Hydralazine Hcl*), 25 MG ORAL EVERY 8 HOURS, (Reported) Hydrocortisone (Hydrocortisone), 1 SUPP RECTAL TWICE A DAY, (Reported) Insulin Glargine (Lantus), 7 SUBQ BEFORE BREAKFAST, (Reported) Insulin Lispro (Humalog), 0 SUBQ AC+HS, (Reported) Isosorbide Dinitrate* (Isordil*), 10 MG ORAL TID, (Reported) Lipase/Protease/Amylase (Creon Dr 24,000 Units Capsule), 1 EACH PO TID, ( Reported) Polyethylene Glycol 3350* (Miralax*), 17 GM ORAL DAILY, (Reported) Sennosides (Senna), 8.6 MG PO QHS, (Reported) Thyroid* ([place] Thyroid*), 30 MG ORAL DAILY, (Reported) Vitamin B Cmplx/Vit C/Folic AC (Nephro-Thomas Tablet), 1 TAB ORAL DAILY, (Reported ) Scheduled PRN Acetaminophen* (Acetaminophen 325MG Tablet*), 650 MG ORAL Q6H PRN for Mild Pain (Pain Scale 1-3), (Reported) Cetirizine Hcl* (Zyrtec*), 5 MG ORAL DAILY PRN for Itching, (Reported) Dextrose (Glutose 15), 40 % PO DAILY PRN for HYPOGLCEMIA, (Reported) Guaifenesin* (Guaifenesin), 5 ML ORAL Q6H PRN for For Cough, (Reported) Hydralazine Hcl* (Hydralazine Hcl*), 10 MG ORAL EVERY 6 HOURS PRN for For High Blood Pressure, (Reported) Lidocaine (Lidocaine), 700 MG TP PRN PRN for For Pain, (Reported) Magnesium Hydroxide* (Milk Of Magnesia*), 30 ML ORAL DAILY PRN for Constipation, (Reported) Na Phos,M-B/Na Phos,Di-Ba* (Fleet Enema*), 133 ML RECTAL DAILY PRN for Constipation, (Reported) Ondansetron Odt* (Zofran Odt*), 4 MG ORAL Q8HR PRN for Nausea & Vomiting, ( Reported) Simethicone* (Simethicone*), 80 MG ORAL QID PRN for GAS PAIN, (Reported) Tramadol Hcl* (Ultram*), 25 MG ORAL Q6H PRN for Moderate Pain (Pain Scale 4-6), (Reported) Tramadol Hcl* (Ultram*), 50 MG ORAL Q6H PRN for Severe Pain (Pain Scale 7-10), ( Reported) Discontinued Medications Acetaminophen* (Acetaminophen 325MG Tablet*), 325 MG ORAL Q6H PRN for Mild Pain (Pain Scale 1-3), (Reported) Discontinued Reason: Medication dose changed Mirtazapine* (Mirtazapine*), 15 MG ORAL BEDTIME, (Reported) Discontinued Reason: MD discontinued med Warfarin Sod* (Warfarin Sod*), 2 MG ORAL DAILY, (Reported) Discontinued Reason: MD discontinued med Patient History Healthcare decision maker PT'S SON Resuscitation status Full Code Advanced Directive on File No Review of Systems Constitutional: Reports: weakness Eye: Reports: no symptoms ENT: Reports: no symptoms Respiratory: Reports: no symptoms Gastrointestinal: Reports: no symptoms Genitourinary: Reports: no symptoms Musculoskeletal: Reports: no symptoms Psychiatric: Reports: no symptoms Neurological: Reports: focal weakness Endocrine: Reports: no symptoms Hematologic/Lymphatic: Reports: no symptoms Physical Exam General Appearance: no apparent distress Lines, tubes and drains: peripheral HEENT: normocephalic, atraumatic Neck: non-tender, normal alignment Respiratory/Chest: chest wall non-tender, lungs clear Cardiovascular/Chest: normal peripheral pulses Abdomen: normal bowel sounds, non tender Skin Exam: normal pigmentation, warm/dry Neurologic: abnormal CN, motor weakness, sensory deficit Last 24 Hour Vital Signs Date Time Temp Pulse Resp B/P (MAP) Pulse Ox O2 Delivery O2 Flow Rate FiO2 02/15/18 16:00 98.6 106 20 160/88 (112) 97 98.6 02/15/18 16:00 98.6 106 20 163/88 (113) 97 98.6 02/15/18 15:00 163/88 02/15/18 15:00 163/88 02/15/18 12:00 99.0 89 20 156/88 (110) 99 99.0 02/15/18 09:00 Room Air 02/15/18 08:00 98.6 100 20 146/77 (100) 98 98.6 02/15/18 04:00 98.2 86 20 125/73 (90) 98 98.2 02/15/18 00:00 100.6 78 20 155/76 (102) 99 100.6 Intake and Output 02/14/18 02/15/18 19:00 07:00 Intake Total 900 ml 75 ml Output Total 1725 ml 450 ml Balance -825 ml -375 ml Intake IV Total 900 ml 75 ml Output Urine Total 1725 ml 450 ml # Bowel Movements 5 2 Laboratory Tests Test 02/15/18 05:10 White Blood Count 10.4 K/UL (4.8-10.8) Red Blood Count 3.83 M/UL (4.20-5.40) L Hemoglobin 11.0 G/DL (12.0-16.0) L Hematocrit 35.2 % (37.0-47.0) L Mean Corpuscular Volume 92 FL (80-99) Mean Corpuscular Hemoglobin 28.8 PG (27.0-31.0) Mean Corpuscular Hemoglobin Concent 31.3 G/DL (32.0-36.0) L Red Cell Distribution Width 16.4 % (11.6-14.8) H Platelet Count 205 K/UL (150-450) Mean Platelet Volume 6.8 FL (6.5-10.1) Neutrophils (%) (Auto) 82.8 % (45.0-75.0) H Lymphocytes (%) (Auto) 8.0 % (20.0-45.0) L Monocytes (%) (Auto) 8.3 % (1.0-10.0) Eosinophils (%) (Auto) 0.1 % (0.0-3.0) Basophils (%) (Auto) 0.8 % (0.0-2.0) Sodium Level 141 MMOL/L (136-145) Potassium Level 3.6 MMOL/L (3.5-5.1) Chloride Level 107 MMOL/L (98-107) Carbon Dioxide Level 22 MMOL/L (21-32) Anion Gap 12 mmol/L (5-15) Blood Urea Nitrogen 46 mg/dL (7-18) H Creatinine 2.4 MG/DL (0.55-1.30) H Estimat Glomerular Filtration Rate 24.2 mL/min (>60) Glucose Level 308 MG/DL (74-106) H Hemoglobin A1c 7.1 % (4.3-6.0) H Calcium Level 9.1 MG/DL (8.5-10.1) Total Bilirubin 0.6 MG/DL (0.2-1.0) Aspartate Amino Transf (AST/SGOT) 64 U/L (15-37) H Alanine Aminotransferase (ALT/SGPT) 56 U/L (12-78) Alkaline Phosphatase 369 U/L (46-116) H Total Protein 7.2 G/DL (6.4-8.2) Albumin 2.0 G/DL (3.4-5.0) L Globulin 5.2 g/dL Albumin/Globulin Ratio 0.4 (1.0-2.7) L Triglycerides Level 74 MG/DL (30-150) Cholesterol Level 115 MG/DL (< 200) LDL Cholesterol 65 mg/dL (<100) HDL Cholesterol 44 MG/DL (40-60) Cholesterol/HDL Ratio 2.6 (3.3-4.4) L Vitamin B12 Level 993 PG/ML (193-986) H Vitamin D 25-Hydroxy Pending 25-Hydroxy Vitamin D2 Pending 25-Hydroxy Vitamin D3 Pending Folate 81.8 NG/ML (8.6-58.9) H Thyroid Stimulating Hormone (TSH) 2.396 uiU/mL (0.358-3.740) Height (Feet): 6 Height (Inches): 1.00 Weight (Pounds): 152 Medications Current Medications Medications (Trade) Dose Ordered Sig/Zee Route PRN Reason Start Time Stop Time Status Last Admin Dose Admin Acetaminophen (Tylenol) 650 mg Q4H PRN NG Mild Pain/Temp > 100.5 02/15/18 14:30 03/17/18 14:29 Amlodipine Besylate (Norvasc) 10 mg DAILY NG 02/16/18 09:00 03/18/18 08:59 Amylase/Lipase/ Protease (Pancrease) 1 ea THREE TIMES A DAY NG 02/15/18 18:00 03/17/18 17:59 Atorvastatin Calcium (Lipitor) 80 mg BEDTIME NG 02/15/18 21:00 03/17/18 20:59 Bethanechol Chloride (Urecholine) 10 mg THREE TIMES A DAY NG 02/15/18 18:00 03/17/18 17:59 Calcitriol (Rocatrol) 0.25 mcg DAILY NG 02/16/18 09:00 03/18/18 08:59 Carvedilol (Coreg) 25 mg EVERY 12 HOURS NG 02/15/18 21:00 03/17/18 20:59 Dextrose (Dextrose 50%) 25 ml STAT PRN IV Hypoglycemia 02/14/18 13:00 03/16/18 12:59 Dextrose (Dextrose 50%) 50 ml STAT PRN IV Hypoglycemia 02/14/18 13:00 03/16/18 12:59 Dextrose/Sodium Chloride 1,000 ml @ 75 mls/hr [id number] IV 02/13/18 23:00 03/15/18 22:59 02/15/18 15:00 Docusate Sodium (Colace) 100 mg TWICE A DAY NG 02/15/18 18:00 03/17/18 17:59 Fexofenadine HCl (Edna) 60 mg TWICE A DAY NG 02/15/18 18:00 03/17/18 17:59 Guaifenesin (Robitussin) 100 mg Q4H PRN NG For Cough 02/15/18 14:45 03/17/18 14:29 Heparin Sodium (Porcine) (Heparin 5000 units/ml) 5,000 units EVERY 12 HOURS SUBQ 02/14/18 09:00 03/16/18 08:59 02/15/18 09:01 Hydralazine HCl (Apresoline) 10 mg Q6H PRN NG sbp >160 02/15/18 14:30 03/17/18 14:29 Hydralazine HCl (Apresoline) 25 mg Q8HR NG 02/15/18 15:00 03/17/18 14:59 Insulin Aspart (NovoLOG) BEFORE MEALS AND HS SUBQ 02/14/18 16:30 03/16/18 16:29 02/15/18 17:40 Insulin Detemir (Levemir) 7 units ACBREAKFAST SUBQ 02/16/18 06:30 03/18/18 06:29 Isosorbide Dinitrate (Isordil) 10 mg Q8HR NG 02/15/18 15:00 03/17/18 14:59 Magnesium Hydroxide (Mom) 30 ml DAILYPRN PRN NG Constipation 02/15/18 14:30 03/17/18 14:29 Tramadol HCl (Ultram) 25 mg Q6H PRN NG Moderate Pain (Pain Scale 4-6) 02/15/18 14:45 02/22/18 14:44 Vitamin B Complex/ Vit C/Folic Acid (Nephrovite) 1 tab DAILY NG 02/16/18 09:00 03/18/18 08:59 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 at [facility] SM s/p L hemiparesis Atrial fibrillation on Coumadin CKD Anemia of chronic disease Hypothryoid Pancreatic cancer DM HTN HLD CAD s/p PCI 2009 Heart block s/p medtronic PPM renal artery stenosis s/p stent 2015 Plan: Statin Maintain coumadin for AFIB after hemorrhage progression of CVA ruled out on MRI Plavix Proceed with MRI to evaluate progression of CVA EEG Permission hypertension PEG tube IV fluids physical therapy Outpatient stress test Supportive care Kalin Rodriguez M.D. Feb 15, 2018 21:27
[2018-02-16] VITALS (9 sets, daily range): BP systolic 138–157; BP diastolic 72–84
[2018-02-16] MEDS: HydrALAZINE 25mg tab NG SCH ×3 (06:42→22:13)
[2018-02-16] MEDS: NovoLOG Insulin Flexpen SUBQ SCH ×4 (06:46→22:20)
[2018-02-16] MEDS: Levemir Flexpen SUBQ SCH (06:53)
[2018-02-16] MEDS: Heparin 5000 units/ml inj SUBQ SCH (09:00)
[2018-02-16] MEDS ORDERED: Nephrovite tab (Rena-Vite) NG SCH (09:00)
[2018-02-16] MEDS ORDERED: Calcitriol 0.25mcg Cap NG SCH (09:00)
--- NOTE | 2018-02-16 09:49 | Diagnostic Imaging Report ---
Indication: Post nasogastric tube placement Technique: Single view of the upper abdomen Comparison: Chest radiograph of earlier the same day Findings: Position of nasogastric tube is now satisfactory, coiled within the gastric fundus. Bilateral renal artery stents are incidentally noted. Pacemaker wires are incidentally noted. The visualized bowel gas is unremarkable. There are degenerative changes of the lumbar spine Impression: Satisfactory nasogastric intubation, suitable for use Other findings as noted
[2018-02-16] MEDS: Carvedilol 25mg Tab NG SCH ×2 (10:38→21:12)
[2018-02-16] MEDS: Docusate 100mg/10ml Liq NG SCH ×2 (10:38→18:10)
[2018-02-16] MEDS: Bethanechol 10mg Tab NG SCH (10:40)
[2018-02-16] MEDS: Pancrease Cap NG SCH ×3 (10:41→19:29)
--- NOTE | 2018-02-16 10:48 | General Progress Note ---
Assessment/Plan Assessment/Plan (1) Severe malnutrition (2) Dehydration (3) Encounter for PEG (percutaneous endoscopic gastrostomy) (4) Anemia (5) Failure to thrive (6) Altered level of consciousness (7) CVA (cerebral vascular accident) Plan ST evaluation noted >> recommend long-term non oral feedings NGTF for now PEG plans for Monday if family agrees repeat INR and correct if needed for PEG supportive care IV/PO hydration electrolyte corrections fu labs Subjective ROS Limited/Unobtainable: No Allergies: Coded Allergies: No Known Allergies (Unverified , 02/13/18) Objective Last 24 Hour Vital Signs Date Time Temp Pulse Resp B/P (MAP) Pulse Ox O2 Delivery O2 Flow Rate FiO2 02/16/18 09:02 96.8 99 20 140/81 (100) 100 96.8 02/16/18 06:42 139/78 02/16/18 06:42 139/78 02/16/18 04:00 97.5 86 20 139/78 (98) 97 97.5 02/16/18 00:00 97.9 101 20 149/84 (105) 96 97.9 02/15/18 22:00 154/71 02/15/18 22:00 154/71 02/15/18 21:00 92 154/71 02/15/18 21:00 Room Air 02/15/18 20:00 97.7 104 20 154/71 (98) 99 97.7 02/15/18 16:00 98.6 106 20 160/88 (112) 97 98.6 02/15/18 16:00 98.6 106 20 163/88 (113) 97 98.6 02/15/18 15:00 163/88 02/15/18 15:00 163/88 02/15/18 12:00 99.0 89 20 156/88 (110) 99 99.0 Intake and Output 02/15/18 02/16/18 18:59 06:59 Intake Total 750 ml 1070 ml Output Total 600 ml 700 ml Balance 150 ml 370 ml Intake Free Water 90 ml IV Total 750 ml 825 ml Tube Feeding 155 ml Output Urine Total 600 ml 700 ml # Bowel Movements 1 2 Laboratory Tests 02/16/18 10:30: White Blood Count [Pending], Red Blood Count [Pending], Hemoglobin [Pending], Hematocrit [Pending], Mean Corpuscular Volume [Pending], Mean Corpuscular Hemoglobin [Pending], Mean Corpuscular Hemoglobin Concent [Pending], Red Cell Distribution Width [Pending], Platelet Count [Pending], Mean Platelet Volume [ Pending], Neutrophils (%) (Auto) [Pending], Lymphocytes (%) (Auto) [Pending], Monocytes (%) (Auto) [Pending], Eosinophils (%) (Auto) [Pending], Basophils (%) (Auto) [Pending], Sodium Level [Pending], Potassium Level [Pending], Chloride Level [Pending], Carbon Dioxide Level [Pending], Blood Urea Nitrogen [Pending], Creatinine [Pending], Estimat Glomerular Filtration Rate [Pending], Glucose Level [Pending], Calcium Level [Pending] Height (Feet): 6 Height (Inches): 1.00 Weight (Pounds): 152 General Appearance: no apparent distress EENT: normal ENT inspection Neck: supple Cardiovascular: normal rate Respiratory/Chest: decreased breath sounds Abdomen: normal bowel sounds, non tender, soft Extremities: non-tender Papa May MD Feb 16, 2018 10:48
[2018-02-16 10:53] LABS: BASOPHILS % (AUTO) 0.8 % (0.0-2.0); EOSINOPHILS % (AUTO) 0.7 % (0.0-3.0); HEMATOCRIT 35.8 % (37.0-47.0); HEMOGLOBIN 11.1 G/DL (12.0-16.0); LYMPHOCYTES % (AUTO) 7.6 % (20.0-45.0); MEAN CORPUSCULAR VOLUME 92 FL (80-99); MONOCYTES % (AUTO) 8.5 % (1.0-10.0); NEUTROPHILS % (AUTO) 82.4 % (45.0-75.0); PLATELET COUNT 217 K/UL (150-450); RED BLOOD COUNT 3.87 M/UL (4.20-5.40); RED CELL DISTRIBUTION WIDTH 15.8 % (11.6-14.8); WHITE BLOOD COUNT 10.5 K/UL (4.8-10.8)
[2018-02-16 11:13] LABS: ANION GAP 11 mmol/L (5-15); BLOOD UREA NITROGEN 39 mg/dL (7-18); CARBON DIOXIDE 25 MMOL/L (21-32); CHLORIDE 108 MMOL/L (98-107); CREATININE 2.4 MG/DL (0.55-1.30); POTASSIUM 3.6 MMOL/L (3.5-5.1); SODIUM 143 MMOL/L (136-145)
[2018-02-16] MEDS: D5 1/2NS 1,000 ML IV SCH (13:41)
--- NOTE | 2018-02-16 13:55 | Diagnostic Imaging Report ---
Indications: Headache, history of recent CVA Technique: Spiral acquisitions obtained through the brain. Angled axial and coronal 5 x 5 mm slices were reconstructed. Total dose length product 1354.97 mGycm. CTDI vol(s) 70.38 mGy. Dose reduction achieved using automated exposure control Comparison: 02/13/2018 Findings: There is some image degradation due to motion artifact Large area of encephalomalacia involving the right frontal, parietal, and temporal lobes is again demonstrated. There is also is a focal area of involvement of the right caudate head and anterior limb of the internal capsule. Edema may be improving slightly, as there is some intervening normal parenchyma within the area of edema that was not evident previously. Some of these areas demonstrate equivocally slightly increased in attenuation relative to normal parenchyma, and foci of petechial cortical hemorrhage are possible. Mass effect, manifested by attenuation of the right lateral ventricle, and approximately 2 mm of [id number] midline shift appear unchanged. No evidence of acute extra-axial hemorrhage. No new edema. Previously demonstrated low-attenuation within the midbrain is not evident currently, was probably artifactual. Mcclendon-white differentiation in the contralateral hemisphere is preserved There a small focus of low-attenuation within the right frontal posterior parasagittal deep white matter which is not evident previously. The calvarium is intact. The mastoids are clear. The visualized orbits and sinuses are unremarkable. Impression: Subacute right middle cerebral artery distribution infarct is again demonstrated. Associated mass effect as described previously is unchanged The degree of edema may be somewhat improved, as some areas of intervening parenchyma are now visualized within the area of infarction. Some of the now visible intervening parenchyma there is equivocally slightly high in attenuation, and areas of petechial hemorrhage are certainly possible. MRI may be useful to clarify if clinically indicated No other evidence of hemorrhage demonstrated Small new focus of low attenuation within the right posterior parasagittal frontal deep white matter, could represent an evolving deep white matter lacunar infarct Previously suggested right midbrain infarct is not evident currently, was presumably artifactual Findings discussed by phone with Dr. Jacobs at the time of interpretation The CT scanner at [facility] is accredited by the [employer] and the scans are performed using protocols designed to limit radiation exposure to as low as reasonably achievable to attain images of sufficient resolution adequate for diagnostic evaluation.
--- NOTE | 2018-02-16 14:05 | Neurology Progress Note ---
Interim History Interim History Interim History Ms. Mcpherson is more awake and responsive today. She is able to say a few words. She is also able to follow a few simple commands. She makes consistent eye contact on the right side. 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 Her Pacemaker is not MRI safe, but is MRI compatible, however getting a MRI scan was logistically impossible. Review of Systems Neuro Review of Systems Unable to obtain. Objective Physical Exam Last Vital Signs Date Time Temp Pulse Resp B/P (MAP) Pulse Ox O2 Delivery O2 Flow Rate FiO2 02/16/18 12:00 98.2 93 20 149/72 (97) 100 98.2 02/16/18 09:00 Room Air Laboratory Tests Test 02/16/18 10:30 White Blood Count 10.5 K/UL (4.8-10.8) Red Blood Count 3.87 M/UL (4.20-5.40) L Hemoglobin 11.1 G/DL (12.0-16.0) L Hematocrit 35.8 % (37.0-47.0) L Mean Corpuscular Volume 92 FL (80-99) Mean Corpuscular Hemoglobin 28.7 PG (27.0-31.0) Mean Corpuscular Hemoglobin Concent 31.1 G/DL (32.0-36.0) L Red Cell Distribution Width 15.8 % (11.6-14.8) H Platelet Count 217 K/UL (150-450) Mean Platelet Volume 7.5 FL (6.5-10.1) Neutrophils (%) (Auto) 82.4 % (45.0-75.0) H Lymphocytes (%) (Auto) 7.6 % (20.0-45.0) L Monocytes (%) (Auto) 8.5 % (1.0-10.0) Eosinophils (%) (Auto) 0.7 % (0.0-3.0) Basophils (%) (Auto) 0.8 % (0.0-2.0) Sodium Level 143 MMOL/L (136-145) Potassium Level 3.6 MMOL/L (3.5-5.1) Chloride Level 108 MMOL/L (98-107) H Carbon Dioxide Level 25 MMOL/L (21-32) Anion Gap 11 mmol/L (5-15) Blood Urea Nitrogen 39 mg/dL (7-18) H Creatinine 2.4 MG/DL (0.55-1.30) H Estimat Glomerular Filtration Rate 24.2 mL/min (>60) Glucose Level 357 MG/DL (74-106) H Calcium Level 9.0 MG/DL (8.5-10.1) Neurologic Exam Objective PHYSICAL EXAMINATION: GENERAL: She is a well-developed, relatively well-nourished, black lady, lying in bed, in no acute distress. HEAD: Normocephalic and atraumatic. EENT: Examination benign. NECK: No neck rigidity was observed. NEUROLOGICAL EXAMINATION: MENTAL STATUS EXAMINATION: She was awake and more alert. She was oriented to self only. She followed a fe simple commands. She was unable to cooperate for further mental status testing. SPEECH: She was severely hypophonic. LANGUAGE: She was able to comprehend a few simple commands. She was able to say a few words. She continued to exhibit an aphasia. CRANIAL NERVE EXAMINATION: II: She did blink to threat. She had a definite left visual field deficit. She counted fingers in her right field. III, IV & : The external ocular movements were present but restricted. The pupils were 3 mm in diameter, equal, round, regular, and reactive to light. She did have a right gaze preference. V & VII: The corneal reflex was diminished on the left side compared to the right. She also had left greater than right VII central facial paresis. VIII: She was able to hear sounds and had no nystagmus. IX & X: The gag reflex was present, but significantly delayed. XI: The sternocleidomastoids and trapezii did function. XII: The tongue was in the midline. MOTOR SYSTEM: The tone was spastic in all 4 extremities. Examination of muscle mass revealed no focal wasting. Examination of power was impossible to perform on individual muscle groups. The left upper extremity was plegic. The left lower extremity was severely paretic with minimal withdrawal on deep painful stimuli. The right upper and lower extremities were also significantly paretic with minimal voluntary movement and withdrawal to deep pain. SENSORY EXAMINATION: She responded to deep pain with more robust responses on right-sided stimulation than left-sided stimulation, though all four extremities were not normal. REFLEXES: 3+ on the left and 2++ on the right at the biceps, triceps, brachioradialis, and knees. 0 at both ankles. The plantar responses were extensor bilaterally. COORDINATION, STANCE & GAIT: Could not be tested. Impression/Recommendations Diagnostic Impression 1. Ms. Janee Mcpherson is a 72-year-old, black lady, of unknown handedness, who does have a past history of hypertension, dyslipidemia, heart block - status post pacemaker implantation, coronary artery disease - status post percutaneous intervention and stent placement, atrial fibrillation, for which she was on Coumadin in the past and pancreatic cancer who approximately 1 month ago was taken to [facility] for a urinary tract infection and had a large right middle cerebral artery stroke there, and then was transferred to [facility] where she improved, and then to a detention where she started to deteriorate. She was brought into the [facility] emergency room for a decline in cognitive and motor function on 02/13/2018 and has since worsened more. 2. She is more awake and responsive today. She is able to say a few words. She is also able to follow a few simple commands. She makes consistent eye contact on the right side. 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 Her Pacemaker is not MRI safe, but is MRI compatible, however getting a MRI scan was logistically impossible. 3. On neurological examination, at this time, she is awake and more alert. She is oriented to self only. She follows a few simple commands. She is unable to cooperate for further mental status testing. She is severely hypophonic. She is moderately aphasic. She has a left visual field cut, has a left greater than right VII central facial paresis, left upper extremity plegia, minimal left lower extremity movements, severe right upper extremity and right lower extremity weakness, pathologically brisk deep tendon reflexes, which are brisker on the left than on the right, and extensor plantar responses bilaterally. 4. The CT scan of the brain without contrast performed at [facility] on 02/13/2018 reveals a complete right middle cerebral artery territory infarct and in addition an infarct involving the right occipital area, which may be old. In addition, there is questionable brainstem pathology seen in the right dayana and midbrain. 5. As per Dr. Tarango the CT done on 02/16/18 reveals no acute pathology involving the left brain. Only reveals the old right brain strokes. 6. Laboratory data obtained thus far revealed that she is significantly anemic with a hemoglobin of 10.2 grams. The chemistry panel reveals a BUN elevated at 44 with a creatinine of 2.3. Her blood glucose elevated to 238, AST elevated to 86, alkaline phosphatase is elevated to 355, albumin low at 1.9, TSH is normal at 2.59. The urinalysis reveals 2+ leukocyte esterase, 2-4 RBCs and 5- 10 WBCs per high power field. 7. The patient's history and neurological examination are most compatible with possible bilateral cerebral infarcts. The right brain infarct that occurred approximately 1 month ago is well visualized on the CT scan of the brain. There is a possibility that a left infarct is not visible on the CT, a less likely etiology would be an ictal phenomenon causing this kind of bilateral picture. Recommendations 1. Continue present management. 2. Will review CT of brain when available. 3. Await EEG to evaluate the patient for ongoing ictal or interictal phenomena and to determine the degree and type of cerebral dysfunction. 4. Physical, occupational and speech and language therapy. 5. Can restart anticoagulation from neurologic point of view. 6. Observe closely. Riki Jacobs M.D., M.S.P.Joao. RIKI JACOBS Feb 16, 2018 14:05
--- NOTE | 2018-02-16 14:39 | General Progress Note ---
Assessment/Plan Status: stable Assessment/Plan Assessment: 72 y/o female with h/o recent R CVA s/p L hemiparesis presented from [facility] for increased lethargy. #Toxic metabolic encephalopathy #R CVA in mid-December 2017 at [facility] s/p L hemiparesis and L side neglect #A. fibb (on coumadin) - held coumadin for now #CKD #Anemia #Hypothyroidism #Metastatic pancreatic CA (dx 2007, treated w/ neoadjuvant chemo) s/p pyloric sparing Whipple resection in 2009 at [facility] with recurrence in 2016 s/p chemotherapy) #T2DM #HTN #HLD #h/o heart block s/p PPM ([employer] placed in 2012) #h/o renal artery stenosis s/p stent 2015 #h/o CAD s/p PCI in 2009 Plan: - Neurology consulted, appreciate rec's - Cardiology consulted for PPM eval if MRI safe, appreciate rec's - GI consulted for dysphagia, possible PEG placement, appreciate rec's - F/u ECHO - Venous duplex BLE negative for DVT - F/u urine cx - Check vitamin B12, folate, vitamin D, TSH, A1c, lipid panel - EKG showing A. fibb, rate controlled - EEG abnormal, showing generalized slowing with R > L - unable to perform MRI as pacemaker is [employer] MRI conditional and architectural representative has to turn it off first - F/u STAT CT head w/o IV contrast -- - Will need to resume coumadin if ST eval was passed and CT head showed no hemorrhage - PT/OT - ST eval -- failed swallow study x 2. Will repeat again today given more alert - NG tube - NPO - IVF - plan for PEG on Monday per GI if patient continues to fail swallow eval - Continue home meds - SSi - no chemotherapy for pancreatic CA per family due to multiple comorbidities and frailty - avoid mind-altering meds at this time Son: Christie [phone] DVT ppx: SCDs Code Status: Full Hospital Classification Declaration: Based on this initial evaluation, and depending on the patient's clinical course, I anticipate that this patient will require hospitalization for 3-4 days for AMS and close respiratory/hemodynamic monitoring. Disposition: Once the patient is stable to leave the hospital, I anticipate the patient will likely be discharged to the following environment: [facility] I spend 32 minutes on this patient's case, and 24 minutes were dedicated to counseling and/or care coordination. Discussed with patient/family, nursing staff, SW/CM, neurologist, GI, and cardiology regarding clinical status, treatment course, and disposition planning. Subjective Date patient seen: Feb 16, 2018 Allergies: Coded Allergies: No Known Allergies (Unverified , 02/13/18) Subjective - more awake and alert, conversating - son at bedside - unable to do MRI head because pacemaker needs to be switched off first Objective Last 24 Hour Vital Signs Date Time Temp Pulse Resp B/P (MAP) Pulse Ox O2 Delivery O2 Flow Rate FiO2 02/16/18 12:00 98.2 93 20 149/72 (97) 100 98.2 02/16/18 10:39 99 140/64 02/16/18 10:38 99 140/64 02/16/18 09:02 96.8 99 20 140/81 (100) 100 96.8 02/16/18 09:00 Room Air 02/16/18 08:00 96.8 99 20 140/81 (100) 100 96.8 02/16/18 06:42 139/78 02/16/18 06:42 139/78 02/16/18 04:00 97.5 86 20 139/78 (98) 97 97.5 02/16/18 00:00 97.9 101 20 149/84 (105) 96 97.9 02/15/18 22:00 154/71 02/15/18 22:00 154/71 02/15/18 21:00 92 154/71 02/15/18 21:00 Room Air 02/15/18 20:00 97.7 104 20 154/71 (98) 99 97.7 02/15/18 16:00 98.6 106 20 160/88 (112) 97 98.6 02/15/18 16:00 98.6 106 20 163/88 (113) 97 98.6 02/15/18 15:00 163/88 02/15/18 15:00 163/88 Intake and Output 02/15/18 02/16/18 19:00 07:00 Intake Total 750 ml 995 ml Output Total 600 ml 700 ml Balance 150 ml 295 ml Intake Free Water 90 ml IV Total 750 ml 750 ml Tube Feeding 155 ml Output Urine Total 600 ml 700 ml # Bowel Movements 1 2 Laboratory Tests 02/16/18 10:30: White Blood Count 10.5, Red Blood Count 3.87L, Hemoglobin 11.1L, Hematocrit 35.8L, Mean Corpuscular Volume 92, Mean Corpuscular Hemoglobin 28.7, Mean Corpuscular Hemoglobin Concent 31.1L, Red Cell Distribution Width 15.8H, Platelet Count 217, Mean Platelet Volume 7.5, Neutrophils (%) (Auto) 82.4H, Lymphocytes (%) (Auto) 7.6L, Monocytes (%) (Auto) 8.5, Eosinophils (%) (Auto) 0.7, Basophils (%) (Auto) 0.8, Sodium Level 143, Potassium Level 3.6, Chloride Level 108H, Carbon Dioxide Level 25, Anion Gap 11, Blood Urea Nitrogen 39H, Creatinine 2.4H, Estimat Glomerular Filtration Rate 24.2, Glucose Level 357H, Calcium Level 9.0 Height (Feet): 6 Height (Inches): 1.00 Weight (Pounds): 152 General Appearance: no apparent distress, alert EENT: PERRL/EOMI, normal ENT inspection Neck: non-tender, normal alignment, supple Cardiovascular: normal peripheral pulses, normal rate, regularly irregular Respiratory/Chest: chest wall non-tender, lungs clear, normal breath sounds Abdomen: normal bowel sounds, non tender, soft Neurologic: alert, other - LUE 0/5, LLE 0/5, RLE 3/5, RUE 1/5 Skin: normal pigmentation, warm/dry Mela Hernandez NP Feb 16, 2018 14:39
[2018-02-16] MEDS ORDERED: HydrALAZINE 25mg tab NG PRN (14:49)
--- NOTE | 2018-02-16 14:49 | Consultation ---
Consult Note Consult Note asked to evaluate for renal failure- admitted via ER on 02/13 72 y/o female with a recent R CVA in mid-December 2017 at [facility], L hemiparesis, metastatic pancreatic CA (dx 2007, treated w/ neoadjuvant chemo) s/ p pyloric sparing Whipple resection in 2009 at [facility] with recurrence in 2016 s/p chemotherapy), T2DM, HTN, HLD, heart block s/p PPM, renal artery stenosis s/p stent 2015, CAD s/p PCI in 2009, A. fibb (on coumadin), CKD, and anemia presented from [facility] for increased lethargy for 1 day. Per son, patient had presented to [facility] 1 month ago for a UTI and suffered from a large CVA 1-2 days after admission. Patient was transferred to [facility] for acute rehab for 2 weeks and then was transferred to [facility] for further rehab last week. Per son, patient was talking, eating, and moving her RUE and RLE at [facility] but has been declining ever since her admission at [facility]. Son states that patient yesterday started having slowed speech and increased lethargy, which prompted them to come to the ER. In the ER, CT head was done, which showed large right MCA distribution subacute infarct with resultant mass effect. No e/o acute intracranial hemorrhage. Low-attenuation in the right side of the dayana and midbrain. Suspect artifiactual due to beam hardening artifact but lacunar infarct, old if real, not excludable. Upon review of records, recent CT head was done at [facility] on 01/30/18, which showed right posterior frontal parietal and temporal occipital chronic infarction with no hemorrhage. At this time, patient remains lethargic and uncooperative but appears to be in no acute distress. o/e non historian- has NGT has left chest portacath medsreviewed- labs reviewed Assessment/Plan Renal Failure, Likely Chronic due to DM / HTN , has 3+ Proteinuria Encephalopathy CVA with left Larry Anemia HypoThyroid Metastatic pancreatic Ca , s/p treatment with Chemo and Whipple resection at [facility] HTN DMII CAD HLD Plan: DC mind altering meds- Urine Studies- Mueller- Adjust BP meds- Avoid Nephrotoxics Monitor renal parameters The patient's history and neurological examination are most compatible with possible bilateral cerebral infarcts. The right brain infarct that occurred approximately 1 month ago is well visualized on the CT scan of the brain. There is a possibility that a left infarct is not visible on the CT, a less likely etiology would be an ictal phenomenon causing this kind of bilateral picture. KEITH Impression: Increased bilateral renal echogenicity, consistent with medical renal disease. Negative for hydronephrosis Possible nonobstructive left lower pole renal calculus Increased hepatic echogenicity, likely fatty change. Numerous hypoechoic nodules scattered throughout the liver. Most likely represents neoplasm, most likely metastatic. The possibility of multiple microabscesses should also be considered Trace ascites Toney Meyer MD Feb 16, 2018 14:49
--- NOTE | 2018-02-16 19:01 | Cardiology Progress Note ---
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 at [facility] SM s/p L hemiparesis Atrial fibrillation on Coumadin CKD Anemia of chronic disease Hypothryoid Pancreatic cancer DM HTN HLD CAD s/p PCI 2009 Heart block s/p medtronic PPM renal artery stenosis s/p stent 2015 Plan: Statin Maintain coumadin for AFIB after hemorrhage progression of CVA ruled out on MRI/ CT Plavix EEG - negative Permission hypertension PEG tube monday IV fluids physical therapy Outpatient stress test Supportive care Subjective Cardiovascular: Reports: no symptoms Respiratory: Reports: no symptoms Gastrointestinal/Abdominal: Reports: no symptoms Genitourinary: Reports: no symptoms Subjective MRI could not be done EEG with no seizure Possible PEG tube monday No acute events otherwise Objective Last 24 Hour Vital Signs Date Time Temp Pulse Resp B/P (MAP) Pulse Ox O2 Delivery O2 Flow Rate FiO2 02/16/18 17:02 97.9 90 138/77 (97) 100 97.9 02/16/18 16:00 97.9 98 20 138/77 (97) 100 97.9 02/16/18 14:57 157/72 02/16/18 14:57 157/72 02/16/18 14:53 88 157/72 (100) 02/16/18 12:00 98.2 93 20 149/72 (97) 100 98.2 02/16/18 10:39 99 140/64 02/16/18 10:38 99 140/64 02/16/18 09:02 96.8 99 20 140/81 (100) 100 96.8 02/16/18 09:00 Room Air 02/16/18 08:00 96.8 99 20 140/81 (100) 100 96.8 02/16/18 06:42 139/78 02/16/18 06:42 139/78 02/16/18 04:00 97.5 86 20 139/78 (98) 97 97.5 02/16/18 00:00 97.9 101 20 149/84 (105) 96 97.9 02/15/18 22:00 154/71 02/15/18 22:00 154/71 02/15/18 21:00 92 154/71 02/15/18 21:00 Room Air 02/15/18 20:00 97.7 104 20 154/71 (98) 99 97.7 General Appearance: no apparent distress, cachetic, lethargic EENT: PERRL/EOMI, normal ENT inspection Neck: non-tender, normal alignment Rhythm: NSR Cardiovascular: normal peripheral pulses, normal rate Respiratory/Chest: chest wall non-tender, lungs clear Abdomen: normal bowel sounds, non tender Extremities: normal range of motion, non-tender Neurologic: no motor/sensory deficits, abnormal CN, motor weakness, sensory deficit Intake and Output 02/15/18 02/16/18 19:00 07:00 Intake Total 750 ml 995 ml Output Total 600 ml 700 ml Balance 150 ml 295 ml Intake Free Water 90 ml IV Total 750 ml 750 ml Tube Feeding 155 ml Output Urine Total 600 ml 700 ml # Bowel Movements 1 2 Laboratory Tests Test 02/16/18 10:30 White Blood Count 10.5 K/UL (4.8-10.8) Red Blood Count 3.87 M/UL (4.20-5.40) L Hemoglobin 11.1 G/DL (12.0-16.0) L Hematocrit 35.8 % (37.0-47.0) L Mean Corpuscular Volume 92 FL (80-99) Mean Corpuscular Hemoglobin 28.7 PG (27.0-31.0) Mean Corpuscular Hemoglobin Concent 31.1 G/DL (32.0-36.0) L Red Cell Distribution Width 15.8 % (11.6-14.8) H Platelet Count 217 K/UL (150-450) Mean Platelet Volume 7.5 FL (6.5-10.1) Neutrophils (%) (Auto) 82.4 % (45.0-75.0) H Lymphocytes (%) (Auto) 7.6 % (20.0-45.0) L Monocytes (%) (Auto) 8.5 % (1.0-10.0) Eosinophils (%) (Auto) 0.7 % (0.0-3.0) Basophils (%) (Auto) 0.8 % (0.0-2.0) Sodium Level 143 MMOL/L (136-145) Potassium Level 3.6 MMOL/L (3.5-5.1) Chloride Level 108 MMOL/L (98-107) H Carbon Dioxide Level 25 MMOL/L (21-32) Anion Gap 11 mmol/L (5-15) Blood Urea Nitrogen 39 mg/dL (7-18) H Creatinine 2.4 MG/DL (0.55-1.30) H Estimat Glomerular Filtration Rate 24.2 mL/min (>60) Glucose Level 357 MG/DL (74-106) H Calcium Level 9.0 MG/DL (8.5-10.1) C-Reactive Protein, Quantitative 15.2 mg/dL (0.00-0.90) H Kalin Rodriguez M.D. Feb 16, 2018 19:01
[2018-02-16] MEDS: Atorvastatin 20mg tab NG SCH (21:12)
--- NOTE | 2018-02-16 21:45 | Electroencephalogram ---
DATE OF PROCEDURE: 02/15/2018 REQUESTING PHYSICIAN: Shane Hall M.D. HISTORY: This EEG was performed on a 72-year-old lady, who had right brain stroke associated with left hemiplegia, left maggie neglect, and visual field deficit. She was then noted to have a decline in function and was exhibiting left brain dysfunction including aphasia and significant right-sided weakness. The purpose of this EEG was to evaluate the patient for the degree and type of cerebral dysfunction and to exclude ongoing ictal or interictal phenomena. TECHNICAL NOTE: This EEG was performed on a [employer] with electrodes placed on the scalp according to the International 10-20 system. Caogw-hc-yfzvi and abdee-lq-dlm montages were used. The EEG was technically satisfactory and was performed in the awake and drowsy states. OBSERVATIONS: In the best awake state, the background activity consisted of 6-7 Hz theta activity over the left hemisphere, and significantly low amplitude and slower 4-5 Hz theta with some intermixed delta frequencies over the right hemisphere. In addition, right fronto- centro-temporal polymorphic delta activity was also seen. Drowsiness was characterized by slowing of the background predominantly in the 4-5 Hz theta range with intermixed delta frequencies. In addition, bilateral frontotemporal polymorphic delta activity was also seen during drowsiness. IMPRESSION: This is an abnormal EEG characterized by: 1. Slowing of the background in the 4-5 Hz theta range with decrease in amplitude over the right hemisphere. 2. Slowing of the background in the 6-7 Hz theta range in the best awake state over the left hemisphere. 3. Right xwhrqb-rwzxni-azqznuiv polymorphic delta activity seen during wakefulness and drowsiness. 4. Bilateral frontotemporal polymorphic delta activity seen during drowsiness. COMMENT: The study is consistent with: 1. Right greater than left hemispheric dysfunction. 2. Focal right nlcjmo-lqyrzq-mmhxnbbm dysfunction. 3. The bilateral frontotemporal polymorphic delta activity is most probably due to a combination of the bilateral cerebral dysfunction and possibly an ongoing encephalopathic process. Tevin Jacobs M.D., M.S.P.H. DR: MARY JOB#: [id number] MTDD
--- NOTE | 2018-02-16 23:15 | Progress Note ---
DATE: 02/16/2018 SUBJECTIVE: The patient's medical condition is unchanged. Continues to have waxing and waning consciousness. He is a poor historian. The patient has not had any episodes of anxiety or agitation. MENTAL STATUS EXAMINATION: The patient is having waxing and waning consciousness. Mood is neutral to dysphoric. Affect is flat. Thought process, there is a paucity of thought content. Cognition is severely impaired. ASSESSMENT: Encephalopathy due to general medical condition. PLAN: We will continue the Zyprexa. The patient lacks capacity to make decisions. The family or next of kin should be involved in the decision-making process. Wai Lopez M.D. DR: MICHAELA JOB#: [id number] CC:
[2018-02-17 00:27] VITALS: BP 141/68
[2018-02-17] MEDS: D5 1/2NS 1,000 ML IV SCH ×2 (01:42→17:18)
[2018-02-17 04:36] LABS: BASOPHILS % (AUTO) 0.3 % (0.0-2.0); EOSINOPHILS % (AUTO) 1.4 % (0.0-3.0); HEMATOCRIT 31.6 % (37.0-47.0); HEMOGLOBIN 9.8 G/DL (12.0-16.0); LYMPHOCYTES % (AUTO) 7.4 % (20.0-45.0); MEAN CORPUSCULAR VOLUME 90 FL (80-99); MONOCYTES % (AUTO) 7.2 % (1.0-10.0); NEUTROPHILS % (AUTO) 83.7 % (45.0-75.0); PLATELET COUNT 211 K/UL (150-450); RED BLOOD COUNT 3.51 M/UL (4.20-5.40); RED CELL DISTRIBUTION WIDTH 15.7 % (11.6-14.8); WHITE BLOOD COUNT 9.2 K/UL (4.8-10.8)
[2018-02-17 04:45] VITALS: BP 148/83
[2018-02-17 04:48] LABS: INR 2.1 (0.9-1.1)
[2018-02-17 04:52] LABS: % IRON SATURATION 13 % (15-50); IRON 21 ug/dL (50-175); TOTAL IRON BINDING CAPACITY 160 ug/dL (250-450)
[2018-02-17 05:03] LABS: ALANINE AMINOTRANSFERASE 42 U/L (12-78); ALBUMIN 1.9 G/DL (3.4-5.0); ALBUMIN/GLOBULIN RATIO 0.4 (1.0-2.7); ALKALINE PHOSPHATASE 322 U/L (46-116); ANION GAP 11 mmol/L (5-15); ASPARTATE AMINO TRANSFERASE 45 U/L (15-37); BILIRUBIN,TOTAL 0.5 MG/DL (0.2-1.0); BLOOD UREA NITROGEN 36 mg/dL (7-18); CALCIUM 8.9 MG/DL (8.5-10.1); CARBON DIOXIDE 23 MMOL/L (21-32); CHLORIDE 107 MMOL/L (98-107); CREATININE 2.1 MG/DL (0.55-1.30); FERRITIN 293 NG/ML (8-388); POTASSIUM 3.4 MMOL/L (3.5-5.1); SODIUM 141 MMOL/L (136-145)
[2018-02-17 05:14] LABS: CREATINE KINASE 67 U/L (26-308); GAMMA GLUTAMYL TRANSPEPTIDASE 194 U/L (5-85); PHOSPHORUS 2.6 MG/DL (2.5-4.9)
[2018-02-17] MEDS: HydrALAZINE 25mg tab NG SCH ×3 (05:34→22:01)
[2018-02-17] MEDS: Levemir Flexpen SUBQ SCH (05:55)
[2018-02-17] MEDS: NovoLOG Insulin Flexpen SUBQ SCH ×4 (05:55→20:55)
[2018-02-17 07:59] VITALS: BP 130/80
--- NOTE | 2018-02-17 08:35 | General Progress Note ---
Assessment/Plan Assessment/Plan (1) Severe malnutrition (2) Dehydration (3) Encounter for PEG (percutaneous endoscopic gastrostomy) (4) Anemia (5) Failure to thrive (6) Altered level of consciousness (7) CVA (cerebral vascular accident) Plan ST evaluation noted >> recommend long-term non oral feedings NGTF for now PEG plans for Monday if family agrees repeat INR and correct if needed for PEG supportive care IV/PO hydration electrolyte corrections fu labs d/w patients son , will plan peg for Monday Subjective ROS Limited/Unobtainable: No Allergies: Coded Allergies: No Known Allergies (Unverified , 02/13/18) Objective Last 24 Hour Vital Signs Date Time Temp Pulse Resp B/P (MAP) Pulse Ox O2 Delivery O2 Flow Rate FiO2 02/17/18 07:59 97.3 94 20 130/80 (97) 100 97.3 02/17/18 05:34 148/83 02/17/18 05:34 148/83 02/17/18 04:45 97.9 91 20 148/83 (104) 100 97.9 02/17/18 00:27 98.1 63 20 141/68 (92) 98 98.1 02/16/18 22:13 152/89 02/16/18 22:13 152/89 02/16/18 21:31 Room Air 02/16/18 21:12 89 143/73 02/16/18 20:35 97.9 89 20 143/73 (96) 100 97.9 02/16/18 17:02 97.9 90 138/77 (97) 100 97.9 02/16/18 16:00 97.9 98 20 138/77 (97) 100 97.9 02/16/18 14:57 157/72 02/16/18 14:57 157/72 02/16/18 14:53 88 157/72 (100) 02/16/18 12:00 98.2 93 20 149/72 (97) 100 98.2 02/16/18 10:39 99 140/64 02/16/18 10:38 99 140/64 02/16/18 09:02 96.8 99 20 140/81 (100) 100 96.8 02/16/18 09:00 Room Air Intake and Output 02/16/18 02/17/18 19:00 07:00 Intake Total 1460 ml 1255 ml Output Total 850 ml 400 ml Balance 610 ml 855 ml Intake Free Water 100 ml 100 ml IV Total 900 ml 750 ml Tube Feeding 460 ml 405 ml Output Urine Total 850 ml 400 ml # Bowel Movements 1 Laboratory Tests 02/16/18 10:30: White Blood Count 10.5, Red Blood Count 3.87L, Hemoglobin 11.1L, Hematocrit 35.8L, Mean Corpuscular Volume 92, Mean Corpuscular Hemoglobin 28.7, Mean Corpuscular Hemoglobin Concent 31.1L, Red Cell Distribution Width 15.8H, Platelet Count 217, Mean Platelet Volume 7.5, Neutrophils (%) (Auto) 82.4H, Lymphocytes (%) (Auto) 7.6L, Monocytes (%) (Auto) 8.5, Eosinophils (%) (Auto) 0.7, Basophils (%) (Auto) 0.8, Sodium Level 143, Potassium Level 3.6, Chloride Level 108H, Carbon Dioxide Level 25, Anion Gap 11, Blood Urea Nitrogen 39H, Creatinine 2.4H, Estimat Glomerular Filtration Rate 24.2, Glucose Level 357H, Calcium Level 9.0, C-Reactive Protein, Quantitative 15.2H 02/16/18 23:25: Urine Random Sodium 33 02/17/18 04:15: White Blood Count 9.2, Red Blood Count 3.51L, Hemoglobin 9.8L, Hematocrit 31.6L , Mean Corpuscular Volume 90, Mean Corpuscular Hemoglobin 28.0, Mean Corpuscular Hemoglobin Concent 31.2L, Red Cell Distribution Width 15.7H, Platelet Count 211, Mean Platelet Volume 7.4, Neutrophils (%) (Auto) 83.7H, Lymphocytes (%) (Auto) 7.4L, Monocytes (%) (Auto) 7.2, Eosinophils (%) (Auto) 1.4, Basophils (%) (Auto) 0.3, Sodium Level 141, Potassium Level 3.4L, Chloride Level 107, Carbon Dioxide Level 23, Anion Gap 11, Blood Urea Nitrogen 36H, Creatinine 2.1H, Estimat Glomerular Filtration Rate 28.2, Glucose Level 296H, Calcium Level 8.9, Prothrombin Time 20.9H, Prothromb Time International Ratio 2.1H, Hemoglobin A1c 7.4H, Uric Acid 7.0, Phosphorus Level 2.6, Magnesium Level 1.9, Iron Level 21L, Total Iron Binding Capacity 160L, Percent Iron Saturation 13L, Unsaturated Iron Binding 139, Ferritin 293, Total Bilirubin 0.5, Gamma Glutamyl Transpeptidase 194H, Aspartate Amino Transf (AST/SGOT) 45H, Alanine Aminotransferase (ALT/SGPT) 42, Alkaline Phosphatase 322H, Total Creatine Kinase 67, Troponin I 0.010, Pro-B-Type Natriuretic Peptide 03750M, Total Protein 6.9, Albumin 1.9L, Globulin 5.0, Albumin/Globulin Ratio 0.4L 02/17/18 04:50: Urine Eosinophils None seen Height (Feet): 6 Height (Inches): 1.00 Weight (Pounds): 152 General Appearance: no apparent distress EENT: normal ENT inspection Neck: supple Cardiovascular: normal rate Respiratory/Chest: decreased breath sounds Abdomen: normal bowel sounds, non tender, soft Extremities: non-tender Papa May MD Feb 17, 2018 08:35
[2018-02-17] MEDS: Pancrease Cap NG SCH ×3 (09:06→17:14)
[2018-02-17] MEDS: Docusate 100mg/10ml Liq NG SCH ×3 (09:06→17:14)
[2018-02-17] MEDS: Carvedilol 25mg Tab NG SCH ×2 (09:07→20:50)
[2018-02-17] MEDS ORDERED: Phytonadione 1 MG in D5W 55 ML IVPB SCH (10:00)
--- NOTE | 2018-02-17 10:40 | Cardiology Progress Note ---
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 at [facility] SM s/p L hemiparesis Atrial fibrillation on Coumadin CKD Anemia of chronic disease Hypothryoid Pancreatic cancer DM HTN HLD CAD s/p PCI 2009 Heart block s/p medtronic PPM renal artery stenosis s/p stent 2015 Plan: Statin Maintain coumadin for AFIB after hemorrhage progression of CVA ruled out on MRI/ CT (HOLD FOR PEG TUBE MONDAY) Plavix EEG - negative Permission hypertension PEG tube monday IV fluids NG tube feeds until PEG physical therapy Outpatient stress test Supportive care Subjective Cardiovascular: Reports: no symptoms Respiratory: Reports: no symptoms Gastrointestinal/Abdominal: Reports: no symptoms Genitourinary: Reports: no symptoms Subjective MRI could not be done EEG with no seizure Possible PEG tube monday - INR 2.1 today, vitamin K given No acute events otherwise Tube feed re-started Vitals stable Objective Last 24 Hour Vital Signs Date Time Temp Pulse Resp B/P (MAP) Pulse Ox O2 Delivery O2 Flow Rate FiO2 02/17/18 09:07 94 130/80 02/17/18 09:07 94 130/80 02/17/18 09:00 Room Air 02/17/18 07:59 97.3 94 20 130/80 (97) 100 97.3 02/17/18 05:34 148/83 02/17/18 05:34 148/83 02/17/18 04:45 97.9 91 20 148/83 (104) 100 97.9 02/17/18 00:27 98.1 63 20 141/68 (92) 98 98.1 02/16/18 22:13 152/89 02/16/18 22:13 152/89 02/16/18 21:31 Room Air 02/16/18 21:12 89 143/73 02/16/18 20:35 97.9 89 20 143/73 (96) 100 97.9 02/16/18 17:02 97.9 90 138/77 (97) 100 97.9 02/16/18 16:00 97.9 98 20 138/77 (97) 100 97.9 02/16/18 14:57 157/72 02/16/18 14:57 157/72 02/16/18 14:53 88 157/72 (100) 02/16/18 12:00 98.2 93 20 149/72 (97) 100 98.2 02/16/18 10:39 99 140/64 General Appearance: no apparent distress, thin EENT: PERRL/EOMI, normal ENT inspection Neck: non-tender, normal alignment, supple, normal inspection, no JVD Rhythm: NSR Cardiovascular: normal peripheral pulses, normal rate, regular rhythm Respiratory/Chest: chest wall non-tender, lungs clear Abdomen: normal bowel sounds, non tender Extremities: normal range of motion, non-tender Neurologic: public health service officer II-XII grossly normal, no motor/sensory deficits Intake and Output 02/16/18 02/17/18 19:00 07:00 Intake Total 1460 ml 1255 ml Output Total 850 ml 400 ml Balance 610 ml 855 ml Intake Free Water 100 ml 100 ml IV Total 900 ml 750 ml Tube Feeding 460 ml 405 ml Output Urine Total 850 ml 400 ml # Bowel Movements 1 Laboratory Tests Test 02/16/18 23:25 02/17/18 04:15 02/17/18 04:50 Urine Random Sodium 33 mmol/L (20-110) White Blood Count 9.2 K/UL (4.8-10.8) Red Blood Count 3.51 M/UL (4.20-5.40) L Hemoglobin 9.8 G/DL (12.0-16.0) L Hematocrit 31.6 % (37.0-47.0) L Mean Corpuscular Volume 90 FL (80-99) Mean Corpuscular Hemoglobin 28.0 PG (27.0-31.0) Mean Corpuscular Hemoglobin Concent 31.2 G/DL (32.0-36.0) L Red Cell Distribution Width 15.7 % (11.6-14.8) H Platelet Count 211 K/UL (150-450) Mean Platelet Volume 7.4 FL (6.5-10.1) Neutrophils (%) (Auto) 83.7 % (45.0-75.0) H Lymphocytes (%) (Auto) 7.4 % (20.0-45.0) L Monocytes (%) (Auto) 7.2 % (1.0-10.0) Eosinophils (%) (Auto) 1.4 % (0.0-3.0) Basophils (%) (Auto) 0.3 % (0.0-2.0) Prothrombin Time 20.9 SEC (9.30-11.50) H Prothromb Time International Ratio 2.1 (0.9-1.1) H Sodium Level 141 MMOL/L (136-145) Potassium Level 3.4 MMOL/L (3.5-5.1) L Chloride Level 107 MMOL/L (98-107) Carbon Dioxide Level 23 MMOL/L (21-32) Anion Gap 11 mmol/L (5-15) Blood Urea Nitrogen 36 mg/dL (7-18) H Creatinine 2.1 MG/DL (0.55-1.30) H Estimat Glomerular Filtration Rate 28.2 mL/min (>60) Glucose Level 296 MG/DL (74-106) H Hemoglobin A1c 7.4 % (4.3-6.0) H Uric Acid 7.0 MG/DL (2.6-7.2) Calcium Level 8.9 MG/DL (8.5-10.1) Phosphorus Level 2.6 MG/DL (2.5-4.9) Magnesium Level 1.9 MG/DL (1.8-2.4) Iron Level 21 ug/dL (50-175) L Total Iron Binding Capacity 160 ug/dL (250-450) L Percent Iron Saturation 13 % (15-50) L Unsaturated Iron Binding 139 ug/dL (112-346) Ferritin 293 NG/ML (8-388) Total Bilirubin 0.5 MG/DL (0.2-1.0) Gamma Glutamyl Transpeptidase 194 U/L (5-85) H Aspartate Amino Transf (AST/SGOT) 45 U/L (15-37) H Alanine Aminotransferase (ALT/SGPT) 42 U/L (12-78) Alkaline Phosphatase 322 U/L (46-116) H Total Creatine Kinase 67 U/L (26-308) Troponin I 0.010 ng/mL (0.000-0.056) Pro-B-Type Natriuretic Peptide 20648 pg/mL (0-125) H Total Protein 6.9 G/DL (6.4-8.2) Albumin 1.9 G/DL (3.4-5.0) L Globulin 5.0 g/dL Albumin/Globulin Ratio 0.4 (1.0-2.7) L Urine Eosinophils None seen (NONE SEEN) Kalin Rodriguez M.D. Feb 17, 2018 10:40
--- NOTE | 2018-02-17 11:29 | Diagnostic Imaging Report ---
INDICATION: Nasogastric tube placement COMPARISON: None FINDINGS: Single frontal view of the abdomen demonstrates prominent segments of bowel in the pelvis. Nasogastric tube in the gastric cavity No evidence of organomegaly, abnormal calcifications or obvious soft tissue masses. The osseous structures are intact. IMPRESSION: Prominent segments of bowel in the pelvis. Nasogastric tube in the gastric cavity.
[2018-02-17 12:00] VITALS: BP 132/87
--- NOTE | 2018-02-17 12:02 | Nephrology Progress Note ---
Assessment/Plan Problem List: (1) Acute renal failure (2) Diabetic nephropathy (3) DM (diabetes mellitus) (4) Altered level of consciousness (5) Dehydration (6) Anemia Assessment Renal Failure, Likely Chronic due to DM / HTN , has 3+ Proteinuria Cr lower Encephalopathy CVA with left Larry Anemia HypoThyroid Metastatic pancreatic Ca , s/p treatment with Chemo and Whipple resection at [facility] HTN DMII CAD HLD Plan Plan: DC mind altering meds- Urine Studies- Mueller- Adjust BP meds- Avoid Nephrotoxics Monitor renal parameters Subjective ROS Limited/Unobtainable: Yes Objective Objective Last 24 Hour Vital Signs Date Time Temp Pulse Resp B/P (MAP) Pulse Ox O2 Delivery O2 Flow Rate FiO2 02/17/18 09:07 94 130/80 02/17/18 09:07 94 130/80 02/17/18 09:00 Room Air 02/17/18 07:59 97.3 94 20 130/80 (97) 100 97.3 02/17/18 05:34 148/83 02/17/18 05:34 148/83 02/17/18 04:45 97.9 91 20 148/83 (104) 100 97.9 02/17/18 00:27 98.1 63 20 141/68 (92) 98 98.1 02/16/18 22:13 152/89 02/16/18 22:13 152/89 02/16/18 21:31 Room Air 02/16/18 21:12 89 143/73 02/16/18 20:35 97.9 89 20 143/73 (96) 100 97.9 02/16/18 17:02 97.9 90 138/77 (97) 100 97.9 02/16/18 16:00 97.9 98 20 138/77 (97) 100 97.9 02/16/18 14:57 157/72 02/16/18 14:57 157/72 02/16/18 14:53 88 157/72 (100) 02/16/18 12:00 98.2 93 20 149/72 (97) 100 98.2 Intake and Output 02/16/18 02/17/18 19:00 07:00 Intake Total 1460 ml 1255 ml Output Total 850 ml 400 ml Balance 610 ml 855 ml Intake Free Water 100 ml 100 ml IV Total 900 ml 750 ml Tube Feeding 460 ml 405 ml Output Urine Total 850 ml 400 ml # Bowel Movements 1 Laboratory Tests 02/16/18 23:25: Urine Random Sodium 33 02/17/18 04:15: White Blood Count 9.2, Red Blood Count 3.51L, Hemoglobin 9.8L, Hematocrit 31.6L , Mean Corpuscular Volume 90, Mean Corpuscular Hemoglobin 28.0, Mean Corpuscular Hemoglobin Concent 31.2L, Red Cell Distribution Width 15.7H, Platelet Count 211, Mean Platelet Volume 7.4, Neutrophils (%) (Auto) 83.7H, Lymphocytes (%) (Auto) 7.4L, Monocytes (%) (Auto) 7.2, Eosinophils (%) (Auto) 1.4, Basophils (%) (Auto) 0.3, Prothrombin Time 20.9H, Prothromb Time International Ratio 2.1H, Sodium Level 141, Potassium Level 3.4L, Chloride Level 107, Carbon Dioxide Level 23, Anion Gap 11, Blood Urea Nitrogen 36H, Creatinine 2.1H, Estimat Glomerular Filtration Rate 28.2, Glucose Level 296H, Hemoglobin A1c 7.4H, Uric Acid 7.0, Calcium Level 8.9, Phosphorus Level 2.6, Magnesium Level 1.9, Iron Level 21L, Total Iron Binding Capacity 160L, Percent Iron Saturation 13L, Unsaturated Iron Binding 139, Ferritin 293, Total Bilirubin 0.5, Gamma Glutamyl Transpeptidase 194H, Aspartate Amino Transf (AST/ SGOT) 45H, Alanine Aminotransferase (ALT/SGPT) 42, Alkaline Phosphatase 322H, Total Creatine Kinase 67, Troponin I 0.010, Pro-B-Type Natriuretic Peptide 84118N, Total Protein 6.9, Albumin 1.9L, Globulin 5.0, Albumin/Globulin Ratio 0.4L 02/17/18 04:50: Urine Eosinophils None seen Height (Feet): 6 Height (Inches): 1.00 Weight (Pounds): 152 General Appearance: no apparent distress, lethargic, other - non verbal Neck: limited range of motion Cardiovascular: tachycardia Respiratory/Chest: decreased breath sounds Abdomen: soft Toney Meyer MD Feb 17, 2018 12:02
--- NOTE | 2018-02-17 15:21 | General Progress Note ---
Assessment/Plan Status: stable Assessment/Plan Assessment: 72 y/o female with h/o recent R CVA s/p L hemiparesis presented from [facility] ([place]) for increased lethargy. #Toxic metabolic encephalopathy #R CVA in mid-December 2017 at [facility] SM s/p L hemiparesis and L side neglect #A. fibb (on coumadin) - held coumadin for now #CKD #Anemia #Hypothyroidism #Metastatic pancreatic CA (dx 2007, treated w/ neoadjuvant chemo) s/p pyloric sparing Whipple resection in 2009 at [facility] with recurrence in 2016 s/p chemotherapy) #T2DM #HTN #HLD #h/o heart block s/p PPM (Medtronic placed in 2012) #h/o renal artery stenosis s/p stent 2015 #h/o CAD s/p PCI in 2009 Plan: - Neurology consulted, appreciate rec's - Cardiology consulted for PPM eval if MRI safe, appreciate rec's - GI consulted for dysphagia, possible PEG placement, appreciate rec's - F/u ECHO - F/u carotid U/S - Venous duplex BLE negative for DVT - F/u urine cx - Check vitamin B12, folate, vitamin D, TSH, A1c, lipid panel - EKG showing A. fibb, rate controlled - EEG prelim abnormal, showing generalized slowing with R > L --> f/u final read - unable to perform MRI as pacemaker is Medtronic MRI conditional and provider service representative has to turn it off first - F/u STAT CT head w/o IV contrast -- no acute pathology or changes from prior read - Okay to start anticoagulation per neurology -- start lovenox 70mg SC qd - INR 2.1 -- vitamin K ordered. Need INR to be < 1.3 prior to PEG - PEG scheduled for Monday, son agreeable to sign consent - PT/OT - ST eval -- failed swallow study x 3 - NG tube - NPO - IVF - Continue home meds - SSi - Avoid nephrotoxics - Cr stable at 2 - no chemotherapy for pancreatic CA per family due to multiple comorbidities and frailty - avoid mind-altering meds at this time Son: Karanfu [phone] - 2022 DVT ppx: SCDs Code Status: Full Hospital Classification Declaration: Based on this initial evaluation, and depending on the patient's clinical course, I anticipate that this patient will require hospitalization for 3-4 days for AMS and close respiratory/hemodynamic monitoring. Disposition: Once the patient is stable to leave the hospital, I anticipate the patient will likely be discharged to the following environment: [facility] I spend 32 minutes on this patient's case, and 24 minutes were dedicated to counseling and/or care coordination. Discussed with patient/family, nursing staff, SW/CM, neurologist, GI, and cardiology regarding clinical status, treatment course, and disposition planning. Subjective Date patient seen: Feb 17, 2018 Allergies: Coded Allergies: No Known Allergies (Unverified , 02/13/18) Subjective - repeat CT head with no acute pathology - failed repeat ST eval yesterday - Son agreeable to PEG - continues to be obtunded - AF, HDS Objective Last 24 Hour Vital Signs Date Time Temp Pulse Resp B/P (MAP) Pulse Ox O2 Delivery O2 Flow Rate FiO2 02/17/18 13:46 132/87 02/17/18 13:46 132/87 02/17/18 12:00 97.5 85 20 132/87 (102) 100 97.5 02/17/18 09:07 94 130/80 02/17/18 09:07 94 130/80 02/17/18 09:00 Room Air 02/17/18 07:59 97.3 94 20 130/80 (97) 100 97.3 02/17/18 05:34 148/83 02/17/18 05:34 148/83 02/17/18 04:45 97.9 91 20 148/83 (104) 100 97.9 02/17/18 00:27 98.1 63 20 141/68 (92) 98 98.1 02/16/18 22:13 152/89 02/16/18 22:13 152/89 02/16/18 21:31 Room Air 02/16/18 21:12 89 143/73 02/16/18 20:35 97.9 89 20 143/73 (96) 100 97.9 02/16/18 17:02 97.9 90 138/77 (97) 100 97.9 02/16/18 16:00 97.9 98 20 138/77 (97) 100 97.9 Intake and Output 02/16/18 02/17/18 19:00 07:00 Intake Total 1460 ml 1255 ml Output Total 850 ml 400 ml Balance 610 ml 855 ml Intake Free Water 100 ml 100 ml IV Total 900 ml 750 ml Tube Feeding 460 ml 405 ml Output Urine Total 850 ml 400 ml # Bowel Movements 1 Laboratory Tests 02/16/18 23:25: Urine Random Sodium 33 02/17/18 04:15: White Blood Count 9.2, Red Blood Count 3.51L, Hemoglobin 9.8L, Hematocrit 31.6L , Mean Corpuscular Volume 90, Mean Corpuscular Hemoglobin 28.0, Mean Corpuscular Hemoglobin Concent 31.2L, Red Cell Distribution Width 15.7H, Platelet Count 211, Mean Platelet Volume 7.4, Neutrophils (%) (Auto) 83.7H, Lymphocytes (%) (Auto) 7.4L, Monocytes (%) (Auto) 7.2, Eosinophils (%) (Auto) 1.4, Basophils (%) (Auto) 0.3, Prothrombin Time 20.9H, Prothromb Time International Ratio 2.1H, Sodium Level 141, Potassium Level 3.4L, Chloride Level 107, Carbon Dioxide Level 23, Anion Gap 11, Blood Urea Nitrogen 36H, Creatinine 2.1H, Estimat Glomerular Filtration Rate 28.2, Glucose Level 296H, Hemoglobin A1c 7.4H, Uric Acid 7.0, Calcium Level 8.9, Phosphorus Level 2.6, Magnesium Level 1.9, Iron Level 21L, Total Iron Binding Capacity 160L, Percent Iron Saturation 13L, Unsaturated Iron Binding 139, Ferritin 293, Total Bilirubin 0.5, Gamma Glutamyl Transpeptidase 194H, Aspartate Amino Transf (AST/ SGOT) 45H, Alanine Aminotransferase (ALT/SGPT) 42, Alkaline Phosphatase 322H, Total Creatine Kinase 67, Troponin I 0.010, C-Reactive Protein, Quantitative 0.7 , Pro-B-Type Natriuretic Peptide 91432Y, Total Protein 6.9, Albumin 1.9L, Globulin 5.0, Albumin/Globulin Ratio 0.4L 02/17/18 04:50: Urine Eosinophils None seen Height (Feet): 6 Height (Inches): 1.00 Weight (Pounds): 152 General Appearance: other - obtunded, thin, non cooperative to exam Neck: non-tender, normal alignment, supple Cardiovascular: normal peripheral pulses, normal rate, regular rhythm Respiratory/Chest: chest wall non-tender, lungs clear, normal breath sounds Abdomen: normal bowel sounds, non tender, soft Neurologic: other - left hemiplegia with RUE hemiparesis Skin: normal pigmentation, warm/dry Mela Hernandez NP Feb 17, 2018 15:21
[2018-02-17 16:00] VITALS: BP 139/89
--- NOTE | 2018-02-17 16:14 | Neurology Progress Note ---
Interim History Interim History Interim History Ms. Mcpherson is unresponsive today. She is non-verbal. She is unable to follow any commands. She makes consistent eye contact on the right side only. 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 Review of Systems Neuro Review of Systems Unable to obtain. Objective Physical Exam Last Vital Signs Date Time Temp Pulse Resp B/P (MAP) Pulse Ox O2 Delivery O2 Flow Rate FiO2 02/17/18 13:46 132/87 02/17/18 12:00 97.5 85 20 100 97.5 02/17/18 09:00 Room Air Laboratory Tests Test 02/16/18 23:25 02/17/18 04:15 02/17/18 04:50 Urine Random Sodium 33 mmol/L (20-110) White Blood Count 9.2 K/UL (4.8-10.8) Red Blood Count 3.51 M/UL (4.20-5.40) L Hemoglobin 9.8 G/DL (12.0-16.0) L Hematocrit 31.6 % (37.0-47.0) L Mean Corpuscular Volume 90 FL (80-99) Mean Corpuscular Hemoglobin 28.0 PG (27.0-31.0) Mean Corpuscular Hemoglobin Concent 31.2 G/DL (32.0-36.0) L Red Cell Distribution Width 15.7 % (11.6-14.8) H Platelet Count 211 K/UL (150-450) Mean Platelet Volume 7.4 FL (6.5-10.1) Neutrophils (%) (Auto) 83.7 % (45.0-75.0) H Lymphocytes (%) (Auto) 7.4 % (20.0-45.0) L Monocytes (%) (Auto) 7.2 % (1.0-10.0) Eosinophils (%) (Auto) 1.4 % (0.0-3.0) Basophils (%) (Auto) 0.3 % (0.0-2.0) Prothrombin Time 20.9 SEC (9.30-11.50) H Prothromb Time International Ratio 2.1 (0.9-1.1) H Sodium Level 141 MMOL/L (136-145) Potassium Level 3.4 MMOL/L (3.5-5.1) L Chloride Level 107 MMOL/L (98-107) Carbon Dioxide Level 23 MMOL/L (21-32) Anion Gap 11 mmol/L (5-15) Blood Urea Nitrogen 36 mg/dL (7-18) H Creatinine 2.1 MG/DL (0.55-1.30) H Estimat Glomerular Filtration Rate 28.2 mL/min (>60) Glucose Level 296 MG/DL (74-106) H Hemoglobin A1c 7.4 % (4.3-6.0) H Uric Acid 7.0 MG/DL (2.6-7.2) Calcium Level 8.9 MG/DL (8.5-10.1) Phosphorus Level 2.6 MG/DL (2.5-4.9) Magnesium Level 1.9 MG/DL (1.8-2.4) Iron Level 21 ug/dL (50-175) L Total Iron Binding Capacity 160 ug/dL (250-450) L Percent Iron Saturation 13 % (15-50) L Unsaturated Iron Binding 139 ug/dL (112-346) Ferritin 293 NG/ML (8-388) Total Bilirubin 0.5 MG/DL (0.2-1.0) Gamma Glutamyl Transpeptidase 194 U/L (5-85) H Aspartate Amino Transf (AST/SGOT) 45 U/L (15-37) H Alanine Aminotransferase (ALT/SGPT) 42 U/L (12-78) Alkaline Phosphatase 322 U/L (46-116) H Total Creatine Kinase 67 U/L (26-308) Troponin I 0.010 ng/mL (0.000-0.056) C-Reactive Protein, Quantitative 0.7 mg/dL (0.00-0.90) Pro-B-Type Natriuretic Peptide 03118 pg/mL (0-125) H Total Protein 6.9 G/DL (6.4-8.2) Albumin 1.9 G/DL (3.4-5.0) L Globulin 5.0 g/dL Albumin/Globulin Ratio 0.4 (1.0-2.7) L Urine Eosinophils None seen (NONE SEEN) Neurologic Exam Objective PHYSICAL EXAMINATION: GENERAL: She is a well-developed, relatively well-nourished, black lady, lying in bed, in no acute distress. HEAD: Normocephalic and atraumatic. EENT: Examination benign. NECK: No neck rigidity was observed. NEUROLOGICAL EXAMINATION: MENTAL STATUS EXAMINATION: She was sleeping when I went to see her. When she was aroused she was awake but not alert. She was non verbal. She was unable to follow simple commands. She was unable to cooperate for further mental status testing. SPEECH: She was mute. LANGUAGE: She was globally aphasic. CRANIAL NERVE EXAMINATION: II: She did blink to threat in the right field. She had a definite left visual field deficit. III, IV & : The external ocular movements were present but restricted. The pupils were 3 mm in diameter, equal, round, regular, and reactive to light. She did have a right gaze preference. V & VII: The corneal reflex was diminished on the left side compared to the right. She also had left greater than right VII central facial paresis. VIII: She was able to hear sounds and had no nystagmus. IX & X: The gag reflex was present, but significantly delayed. XI: The sternocleidomastoids and trapezii did function. XII: The tongue was in the midline. MOTOR SYSTEM: The tone was spastic in all 4 extremities. Examination of muscle mass revealed no focal wasting. Examination of power was impossible to perform on individual muscle groups. The left upper extremity was plegic. The left lower extremity was severely paretic with minimal withdrawal on deep painful stimuli. The right upper and lower extremities were also significantly paretic with minimal voluntary movement and withdrawal to deep pain. SENSORY EXAMINATION: She responded to deep pain with more robust responses on right-sided stimulation than left-sided stimulation, though all four extremities were not normal. REFLEXES: 3+ on the left and 2++ on the right at the biceps, triceps, brachioradialis, and knees. 0 at both ankles. The plantar responses were extensor bilaterally. COORDINATION, STANCE & GAIT: Could not be tested. Impression/Recommendations Diagnostic Impression 1. Ms. Janee Mcpherson is a 72-year-old, black lady, of unknown handedness, who does have a past history of hypertension, dyslipidemia, heart block - status post pacemaker implantation, coronary artery disease - status post percutaneous intervention and stent placement, atrial fibrillation, for which she was on Coumadin in the past and pancreatic cancer who approximately 1 month ago was taken to [facility] for a urinary tract infection and had a large right middle cerebral artery stroke there, and then was transferred to [facility] where she improved, and then to a senior care where she started to deteriorate. She was brought into the [facility] emergency room for a decline in cognitive and motor function on 02/13/2018 and has since worsened more. 2. She is unresponsive today. She is non-verbal. She is unable to follow any commands. She makes consistent eye contact on the right side only. 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 3. On neurological examination, at this time, she can be aroused but is aphasic and mute. She is unable to follow simple commands. She is unable to cooperate for further mental status testing. She has a left visual field cut, has a left greater than right VII central facial paresis, left upper extremity plegia, minimal left lower extremity movements, severe right upper extremity and right lower extremity weakness, pathologically brisk deep tendon reflexes, which are brisker on the left than on the right, and extensor plantar responses bilaterally. 4. The CT scan of the brain without contrast performed at [facility] on 02/13/2018 reveals a complete right middle cerebral artery territory infarct and in addition an infarct involving the right occipital area, which may be old. In addition, there is questionable brainstem pathology seen in the right dayana and midbrain. 5. As per Dr. Tarango the CT done on 02/16/18 reveals no acute pathology involving the left brain. Only reveals the old right brain strokes. 6. Laboratory data obtained thus far revealed that she is significantly anemic with a hemoglobin of 10.2 grams. The chemistry panel reveals a BUN elevated at 44 with a creatinine of 2.3. Her blood glucose elevated to 238, AST elevated to 86, alkaline phosphatase is elevated to 355, albumin low at 1.9, TSH is normal at 2.59. The urinalysis reveals 2+ leukocyte esterase, 2-4 RBCs and 5- 10 WBCs per high power field. 7. The EEG revealed right greater than left hemispheric dysfunction, focal right [id number] dysfunction, and bilateral frontotemporal polymorphic delta activity most probably due to a combination of the bilateral cerebral dysfunction and possibly an ongoing encephalopathic process. 8. The patient's history and neurological examination are most compatible with possible bilateral cerebral infarcts. The right brain infarct that occurred approximately 1 month ago is well visualized on the CT scan of the brain. There is a possibility that a left infarct is not visible on the CT, a less likely etiology would be an ictal phenomenon causing this kind of bilateral picture. Recommendations 1. Continue present management. 2. Physical, occupational and speech and language therapy. 3. Can restart anticoagulation from neurologic point of view. 4. Observe closely. Riki Jacobs M.D., M.S.P.H. RIKI JACOBS Feb 17, 2018 16:14
[2018-02-17] MEDS: Enoxaparin Sodium 300mg/3ml vial SUBQ SCH (17:16)
[2018-02-17 20:00] VITALS: BP 149/84
[2018-02-17] MEDS: Atorvastatin 20mg tab NG SCH (20:51)
[2018-02-17] MEDS ORDERED: Iron Sucrose 200 MG in NS 110 ML IV SCH (21:00)
[2018-02-18 01:00] VITALS: BP 150/80
[2018-02-18 04:48] VITALS: BP 134/80
[2018-02-18 05:58] LABS: BASOPHILS % (AUTO) 0.6 % (0.0-2.0); EOSINOPHILS % (AUTO) 0.8 % (0.0-3.0); HEMATOCRIT 30.7 % (37.0-47.0); HEMOGLOBIN 9.9 G/DL (12.0-16.0); LYMPHOCYTES % (AUTO) 6.1 % (20.0-45.0); MEAN CORPUSCULAR VOLUME 91 FL (80-99); MONOCYTES % (AUTO) 7.7 % (1.0-10.0); NEUTROPHILS % (AUTO) 84.7 % (45.0-75.0); PLATELET COUNT 180 K/UL (150-450); RED BLOOD COUNT 3.38 M/UL (4.20-5.40); RED CELL DISTRIBUTION WIDTH 15.7 % (11.6-14.8); WHITE BLOOD COUNT 8.3 K/UL (4.8-10.8)
[2018-02-18] MEDS: HydrALAZINE 25mg tab NG SCH ×3 (05:59→23:08)
[2018-02-18 06:06] LABS: INR 1.2 (0.9-1.1)
[2018-02-18] MEDS: NovoLOG Insulin Flexpen SUBQ SCH ×4 (06:13→21:00)
[2018-02-18] MEDS: Levemir Flexpen SUBQ SCH (06:14)
[2018-02-18 06:16] LABS: ALANINE AMINOTRANSFERASE 39 U/L (12-78); ALBUMIN 1.8 G/DL (3.4-5.0); ALBUMIN/GLOBULIN RATIO 0.4 (1.0-2.7); ALKALINE PHOSPHATASE 302 U/L (46-116); ANION GAP 11 mmol/L (5-15); ASPARTATE AMINO TRANSFERASE 56 U/L (15-37); BILIRUBIN,TOTAL 0.6 MG/DL (0.2-1.0); BLOOD UREA NITROGEN 36 mg/dL (7-18); CALCIUM 8.4 MG/DL (8.5-10.1); CARBON DIOXIDE 23 MMOL/L (21-32); CHLORIDE 108 MMOL/L (98-107); CREATININE 1.9 MG/DL (0.55-1.30); PHOSPHORUS 2.7 MG/DL (2.5-4.9); POTASSIUM 3.4 MMOL/L (3.5-5.1); SODIUM 142 MMOL/L (136-145)
--- NOTE | 2018-02-18 07:36 | General Progress Note ---
Assessment/Plan Assessment/Plan (1) Severe malnutrition (2) Dehydration (3) Encounter for PEG (percutaneous endoscopic gastrostomy) (4) Anemia (5) Failure to thrive (6) Altered level of consciousness (7) CVA (cerebral vascular accident) Plan ST evaluation noted >> recommend long-term non oral feedings NGTF for now PEG plans for Monday , family agreed supportive care IV/PO hydration electrolyte corrections fu labs d/w patients son , will plan peg for Monday Subjective ROS Limited/Unobtainable: No Allergies: Coded Allergies: No Known Allergies (Unverified , 02/13/18) Objective Last 24 Hour Vital Signs Date Time Temp Pulse Resp B/P (MAP) Pulse Ox O2 Delivery O2 Flow Rate FiO2 02/18/18 05:59 134/80 02/18/18 05:59 134/80 02/18/18 04:48 97.9 82 20 134/80 (98) 100 97.9 02/18/18 01:00 97.9 82 20 150/80 (103) 98 97.9 02/17/18 22:01 133/67 02/17/18 22:01 133/67 02/17/18 21:39 Room Air 02/17/18 20:50 88 149/84 02/17/18 20:00 98.1 88 20 149/84 (105) 100 98.1 02/17/18 16:00 98.1 97 20 139/89 (106) 100 98.1 02/17/18 13:46 132/87 02/17/18 13:46 132/87 02/17/18 12:00 97.5 85 20 132/87 (102) 100 97.5 02/17/18 09:07 94 130/80 02/17/18 09:07 94 130/80 02/17/18 09:00 Room Air 02/17/18 07:59 97.3 94 20 130/80 (97) 100 97.3 Intake and Output 02/17/18 02/18/18 19:00 07:00 Intake Total 1090 ml 1405 ml Output Total 650 ml 300 ml Balance 440 ml 1105 ml Intake Free Water 100 ml 100 ml IV Total 675 ml 945 ml Tube Feeding 315 ml 360 ml Output Urine Total 650 ml 300 ml Laboratory Tests 02/18/18 03:49: Urine Eosinophils None seen 02/18/18 05:30: White Blood Count 8.3, Red Blood Count 3.38L, Hemoglobin 9.9L, Hematocrit 30.7L , Mean Corpuscular Volume 91, Mean Corpuscular Hemoglobin 29.3, Mean Corpuscular Hemoglobin Concent 32.2, Red Cell Distribution Width 15.7H, Platelet Count 180, Mean Platelet Volume 7.4, Neutrophils (%) (Auto) 84.7H, Lymphocytes (%) (Auto) 6.1L, Monocytes (%) (Auto) 7.7, Eosinophils (%) (Auto) 0.8, Basophils (%) (Auto) 0.6, Prothrombin Time 12.8H, Prothromb Time International Ratio 1.2H, Sodium Level 142, Potassium Level 3.4L, Chloride Level 108H, Carbon Dioxide Level 23, Anion Gap 11, Blood Urea Nitrogen 36H, Creatinine 1.9H, Estimat Glomerular Filtration Rate 31.6, Glucose Level 315H, Uric Acid 6.2, Calcium Level 8.4L, Phosphorus Level 2.7, Magnesium Level 1.9, Total Bilirubin 0.6, Aspartate Amino Transf (AST/SGOT) 56H, Alanine Aminotransferase (ALT/SGPT) 39, Alkaline Phosphatase 302H, Pro-B-Type Natriuretic Peptide 8929H, Total Protein 6.6, Albumin 1.8L, Globulin 4.8, Albumin/Globulin Ratio 0.4L Height (Feet): 6 Height (Inches): 1.00 Weight (Pounds): 152 General Appearance: no apparent distress EENT: normal ENT inspection Neck: supple Cardiovascular: normal rate Respiratory/Chest: decreased breath sounds Abdomen: normal bowel sounds, non tender, soft Extremities: non-tender Papa May MD Feb 18, 2018 07:36
[2018-02-18 08:00] VITALS: BP 136/87
[2018-02-18] MEDS ORDERED: NS 275ml ONE (09:11)
[2018-02-18] MEDS ORDERED: Tubing IV Secondary IV ONE (09:11)
[2018-02-18] MEDS ORDERED: D5 1/2NS 1000ml IV ONE (09:11)
[2018-02-18] MEDS: Docusate 100mg/10ml Liq NG SCH ×3 (09:34→18:12)
[2018-02-18] MEDS: Pancrease Cap NG SCH ×3 (09:34→18:12)
[2018-02-18] MEDS: Carvedilol 25mg Tab NG SCH ×2 (09:35→23:07)
[2018-02-18] MEDS: Enoxaparin Sodium 300mg/3ml vial SUBQ SCH (09:36)
[2018-02-18] MEDS: D5 1/2NS 1,000 ML IV SCH (09:38)
--- NOTE | 2018-02-18 10:39 | Nephrology Progress Note ---
Assessment/Plan Problem List: (1) Acute renal failure (2) Diabetic nephropathy (3) DM (diabetes mellitus) (4) Altered level of consciousness (5) Dehydration (6) Anemia Assessment Renal Failure, Likely Chronic due to DM / HTN , has 3+ Proteinuria Cr lower Encephalopathy CVA with left Larry Anemia HypoThyroid Metastatic pancreatic Ca , s/p treatment with Chemo and Whipple resection at [facility] HTN DMII CAD HLD Plan Plan: Hold IV- One dose lasix- check CXR DC mind altering meds- Urine Studies- Mueller- Adjust BP meds- Avoid Nephrotoxics Monitor renal parameters Subjective ROS Limited/Unobtainable: No Constitutional: Reports: malaise, weakness Objective Objective Last 24 Hour Vital Signs Date Time Temp Pulse Resp B/P (MAP) Pulse Ox O2 Delivery O2 Flow Rate FiO2 02/18/18 09:35 82 134/80 02/18/18 09:35 82 134/80 02/18/18 05:59 134/80 02/18/18 05:59 134/80 02/18/18 04:48 97.9 82 20 134/80 (98) 100 97.9 02/18/18 01:00 97.9 82 20 150/80 (103) 98 97.9 02/17/18 22:01 133/67 02/17/18 22:01 133/67 02/17/18 21:39 Room Air 02/17/18 20:50 88 149/84 02/17/18 20:00 98.1 88 20 149/84 (105) 100 98.1 02/17/18 16:00 98.1 97 20 139/89 (106) 100 98.1 02/17/18 13:46 132/87 02/17/18 13:46 132/87 02/17/18 12:00 97.5 85 20 132/87 (102) 100 97.5 Intake and Output 02/17/18 02/18/18 19:00 07:00 Intake Total 1090 ml 1405 ml Output Total 650 ml 300 ml Balance 440 ml 1105 ml Intake Free Water 100 ml 100 ml IV Total 675 ml 945 ml Tube Feeding 315 ml 360 ml Output Urine Total 650 ml 300 ml Laboratory Tests 02/18/18 03:49: Urine Eosinophils None seen 02/18/18 05:30: White Blood Count 8.3, Red Blood Count 3.38L, Hemoglobin 9.9L, Hematocrit 30.7L , Mean Corpuscular Volume 91, Mean Corpuscular Hemoglobin 29.3, Mean Corpuscular Hemoglobin Concent 32.2, Red Cell Distribution Width 15.7H, Platelet Count 180, Mean Platelet Volume 7.4, Neutrophils (%) (Auto) 84.7H, Lymphocytes (%) (Auto) 6.1L, Monocytes (%) (Auto) 7.7, Eosinophils (%) (Auto) 0.8, Basophils (%) (Auto) 0.6, Prothrombin Time 12.8H, Prothromb Time International Ratio 1.2H, Sodium Level 142, Potassium Level 3.4L, Chloride Level 108H, Carbon Dioxide Level 23, Anion Gap 11, Blood Urea Nitrogen 36H, Creatinine 1.9H, Estimat Glomerular Filtration Rate 31.6, Glucose Level 315H, Uric Acid 6.2, Calcium Level 8.4L, Phosphorus Level 2.7, Magnesium Level 1.9, Total Bilirubin 0.6, Aspartate Amino Transf (AST/SGOT) 56H, Alanine Aminotransferase (ALT/SGPT) 39, Alkaline Phosphatase 302H, Pro-B-Type Natriuretic Peptide 8929H, Total Protein 6.6, Albumin 1.8L, Globulin 4.8, Albumin/Globulin Ratio 0.4L Height (Feet): 6 Height (Inches): 1.00 Weight (Pounds): 152 General Appearance: mild distress Respiratory/Chest: decreased breath sounds, rhonchi - bilaterally Abdomen: distended Toney Meyer MD Feb 18, 2018 10:38
--- NOTE | 2018-02-18 11:56 | Neurology Progress Note ---
Interim History Interim History Interim History Ms. Mcpherson is awake today. She however is unresponsive. She is non-verbal. She is unable to follow any commands. She makes consistent eye contact on the right side only. 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 Review of Systems Neuro Review of Systems Unable to obtain. Objective Physical Exam Last Vital Signs Date Time Temp Pulse Resp B/P (MAP) Pulse Ox O2 Delivery O2 Flow Rate FiO2 02/18/18 09:35 82 134/80 02/18/18 09:00 Room Air 02/18/18 08:00 98.9 20 99 98.9 Laboratory Tests Test 02/18/18 03:49 02/18/18 05:30 Urine Eosinophils None seen (NONE SEEN) White Blood Count 8.3 K/UL (4.8-10.8) Red Blood Count 3.38 M/UL (4.20-5.40) L Hemoglobin 9.9 G/DL (12.0-16.0) L Hematocrit 30.7 % (37.0-47.0) L Mean Corpuscular Volume 91 FL (80-99) Mean Corpuscular Hemoglobin 29.3 PG (27.0-31.0) Mean Corpuscular Hemoglobin Concent 32.2 G/DL (32.0-36.0) Red Cell Distribution Width 15.7 % (11.6-14.8) H Platelet Count 180 K/UL (150-450) Mean Platelet Volume 7.4 FL (6.5-10.1) Neutrophils (%) (Auto) 84.7 % (45.0-75.0) H Lymphocytes (%) (Auto) 6.1 % (20.0-45.0) L Monocytes (%) (Auto) 7.7 % (1.0-10.0) Eosinophils (%) (Auto) 0.8 % (0.0-3.0) Basophils (%) (Auto) 0.6 % (0.0-2.0) Prothrombin Time 12.8 SEC (9.30-11.50) H Prothromb Time International Ratio 1.2 (0.9-1.1) H Sodium Level 142 MMOL/L (136-145) Potassium Level 3.4 MMOL/L (3.5-5.1) L Chloride Level 108 MMOL/L (98-107) H Carbon Dioxide Level 23 MMOL/L (21-32) Anion Gap 11 mmol/L (5-15) Blood Urea Nitrogen 36 mg/dL (7-18) H Creatinine 1.9 MG/DL (0.55-1.30) H Estimat Glomerular Filtration Rate 31.6 mL/min (>60) Glucose Level 315 MG/DL (74-106) H Uric Acid 6.2 MG/DL (2.6-7.2) Calcium Level 8.4 MG/DL (8.5-10.1) L Phosphorus Level 2.7 MG/DL (2.5-4.9) Magnesium Level 1.9 MG/DL (1.8-2.4) Total Bilirubin 0.6 MG/DL (0.2-1.0) Aspartate Amino Transf (AST/SGOT) 56 U/L (15-37) H Alanine Aminotransferase (ALT/SGPT) 39 U/L (12-78) Alkaline Phosphatase 302 U/L (46-116) H Pro-B-Type Natriuretic Peptide 8929 pg/mL (0-125) H Total Protein 6.6 G/DL (6.4-8.2) Albumin 1.8 G/DL (3.4-5.0) L Globulin 4.8 g/dL Albumin/Globulin Ratio 0.4 (1.0-2.7) L Neurologic Exam Objective PHYSICAL EXAMINATION: GENERAL: She is a well-developed, relatively well-nourished, black lady, lying in bed, in no acute distress. HEAD: Normocephalic and atraumatic. EENT: Examination benign. NECK: No neck rigidity was observed. NEUROLOGICAL EXAMINATION: MENTAL STATUS EXAMINATION: She was awake but not alert. She was non verbal. She was unable to follow simple commands. She was unable to cooperate for further mental status testing. SPEECH: She was mute. LANGUAGE: She was globally aphasic. CRANIAL NERVE EXAMINATION: II: She did blink to threat in the right field. She had a definite left visual field deficit. III, IV & : The external ocular movements were present but restricted. The pupils were 3 mm in diameter, equal, round, regular, and reactive to light. She did have a right gaze preference. V & VII: The corneal reflex was diminished on the left side compared to the right. She also had left greater than right VII central facial paresis. VIII: She was able to hear sounds and had no nystagmus. IX & X: The gag reflex was present, but significantly delayed. XI: The sternocleidomastoids and trapezii did function. XII: The tongue was in the midline. MOTOR SYSTEM: The tone was spastic in all 4 extremities. Examination of muscle mass revealed no focal wasting. Examination of power was impossible to perform on individual muscle groups. The left upper extremity was plegic. The left lower extremity was severely paretic with minimal withdrawal on deep painful stimuli. The right upper and lower extremities were also significantly paretic with minimal voluntary movement and withdrawal to deep pain. SENSORY EXAMINATION: She responded to deep pain with more robust responses on right-sided stimulation than left-sided stimulation, though all four extremities were not normal. REFLEXES: 3+ on the left and 2++ on the right at the biceps, triceps, brachioradialis, and knees. 0 at both ankles. The plantar responses were extensor bilaterally. COORDINATION, STANCE & GAIT: Could not be tested. Impression/Recommendations Diagnostic Impression 1. Ms. Janee Mcpherson is a 72-year-old, black lady, of unknown handedness, who does have a past history of hypertension, dyslipidemia, heart block - status post pacemaker implantation, coronary artery disease - status post percutaneous intervention and stent placement, atrial fibrillation, for which she was on Coumadin in the past and pancreatic cancer who approximately 1 month ago was taken to [facility] for a urinary tract infection and had a large right middle cerebral artery stroke there, and then was transferred to [facility] where she improved, and then to a senior living where she started to deteriorate. She was brought into the [facility] emergency room for a decline in cognitive and motor function on 02/13/2018 and has since worsened more. 2. She is awake today. She however is unresponsive. She is non-verbal. She is unable to follow any commands. She makes consistent eye contact on the right side only. 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 3. On neurological examination, at this time, she can be aroused but is aphasic and mute. She is unable to follow simple commands. She is unable to cooperate for further mental status testing. She has a left visual field cut, has a left greater than right VII central facial paresis, left upper extremity plegia, minimal left lower extremity movements, severe right upper extremity and right lower extremity weakness, pathologically brisk deep tendon reflexes, which are brisker on the left than on the right, and extensor plantar responses bilaterally. 4. The CT scan of the brain without contrast performed at [facility] on 02/13/2018 reveals a complete right middle cerebral artery territory infarct and in addition an infarct involving the right occipital area, which may be old. In addition, there is questionable brainstem pathology seen in the right dayana and midbrain. 5. As per Dr. Tarango the CT done on 02/16/18 reveals no acute pathology involving the left brain. Only reveals the old right brain strokes. 6. Laboratory data obtained thus far revealed that she is significantly anemic with a hemoglobin of 10.2 grams. The chemistry panel reveals a BUN elevated at 44 with a creatinine of 2.3. Her blood glucose elevated to 238, AST elevated to 86, alkaline phosphatase is elevated to 355, albumin low at 1.9, TSH is normal at 2.59. The urinalysis reveals 2+ leukocyte esterase, 2-4 RBCs and 5- 10 WBCs per high power field. 7. The EEG revealed right greater than left hemispheric dysfunction, focal right [id number]-ausnqtbd dysfunction, and bilateral frontotemporal polymorphic delta activity most probably due to a combination of the bilateral cerebral dysfunction and possibly an ongoing encephalopathic process. 8. The patient's history and neurological examination are most compatible with possible bilateral cerebral infarcts. The right brain infarct that occurred approximately 1 month ago is well visualized on the CT scan of the brain. There is a possibility that a left infarct is not visible on the CT, a less likely etiology would be an ictal phenomenon causing this kind of bilateral picture. Recommendations 1. Continue present management. 2. Physical, occupational and speech and language therapy. 3. Can restart anticoagulation from neurologic point of view. 4. Agree with PEG if present level of care has to be continued. 5. Observe closely. Riki Jacobs M.D., M.S.P.RIKI JALLOH Feb 18, 2018 11:56
[2018-02-18 12:00] VITALS: BP 126/68
--- NOTE | 2018-02-18 12:35 | Diagnostic Imaging Report ---
EXAM: XR Chest, 1 View CLINICAL HISTORY: COUGH TECHNIQUE: Frontal view of the chest. COMPARISON: Chest x-ray dated 02/15/18 FINDINGS: Lungs: Mild pulmonary vascular congestion. No focal pulmonary consolidation. Pleural space: Unremarkable. No pneumothorax. Heart: Cardiomegaly. Mediastinum: Unremarkable. Bones/joints: Unremarkable. Vasculature: Atherosclerotic calcifications are noted within the aortic arch. Tubes, lines and devices: There has been interval repositioning of the nasogastric tube, the tip now located in the region of the stomach. Port- A-Cath in the left chest wall with the lead tip in the region of the SVC/right atrial junction. Right chest pacemaker appears unchanged in positioning. IMPRESSION: 1. There has been interval repositioning of the nasogastric tube, the tip now located in the region of the stomach. 2. Mild pulmonary vascular congestion. 3. Cardiomegaly.
--- NOTE | 2018-02-18 12:42 | General Progress Note ---
Assessment/Plan Assessment/Plan Assessment: 72 y/o female with h/o recent R CVA s/p L hemiparesis presented from [facility] for increased lethargy. #Toxic metabolic encephalopathy #R CVA in mid-December 2017 at [facility] s/p L hemiparesis and L side neglect #A. fibb (on coumadin) - held coumadin for now #CKD #Anemia #Hypothyroidism #Metastatic pancreatic CA (dx 2007, treated w/ neoadjuvant chemo) s/p pyloric sparing Whipple resection in 2009 at [facility] with recurrence in 2016 s/p chemotherapy) #T2DM #HTN #HLD #h/o heart block s/p PPM (Medtronic placed in 2012) #h/o renal artery stenosis s/p stent 2015 #h/o CAD s/p PCI in 2009 Plan: - Neurology consulted, appreciate rec's - Cardiology consulted for PPM eval if MRI safe, appreciate rec's - GI consulted for dysphagia, possible PEG placement, appreciate rec's - F/u ECHO - F/u carotid U/S - Venous duplex BLE negative for DVT - F/u urine cx - Check vitamin B12, folate, vitamin D, TSH, A1c, lipid panel - EKG showing A. fibb, rate controlled - EEG prelim abnormal, showing generalized slowing with R > L --> f/u final read - unable to perform MRI as pacemaker is Medtronic MRI conditional and circulation representative has to turn it off first - F/u STAT CT head w/o IV contrast -- no acute pathology or changes from prior read - Okay to start anticoagulation per neurology -- start lovenox 70mg SC qd - INR 1.2 today. Need INR to be < 1.3 prior to PEG - PT/OT - ST eval -- failed swallow study x 3 - NG tube - NPO - IVF - Continue home meds - SSi - Avoid nephrotoxics - Cr stable at 2 - no chemotherapy for pancreatic CA per family due to multiple comorbidities and frailty - avoid mind-altering meds at this time PEG scheduled for Monday, son agreeable. Cleared for PEG per neurology. Hold lovenox 12 hours prior to scheduled surgery. Son: Christie [phone] DVT ppx: SCDs Code Status: Full Hospital Classification Declaration: Based on this initial evaluation, and depending on the patient's clinical course, I anticipate that this patient will require hospitalization for 3-4 days for AMS and close respiratory/hemodynamic monitoring. Disposition: Once the patient is stable to leave the hospital, I anticipate the patient will likely be [facility] spend 32 minutes on this patient's case, and 24 minutes were dedicated to counseling and/or care coordination. Discussed with patient/family, nursing staff, SW/CM, neurologist, GI, and cardiology regarding clinical status, treatment course, and disposition planning. Subjective Date patient seen: Feb 18, 2018 Allergies: Coded Allergies: No Known Allergies (Unverified , 02/13/18) Subjective - no acute events overnight - continues to be uncooperative. no changes in mentation Objective Last 24 Hour Vital Signs Date Time Temp Pulse Resp B/P (MAP) Pulse Ox O2 Delivery O2 Flow Rate FiO2 02/18/18 12:00 98.7 80 20 126/68 (87) 99 98.7 02/18/18 09:35 82 134/80 02/18/18 09:35 82 134/80 02/18/18 09:00 Room Air 02/18/18 08:00 98.9 79 20 136/87 (103) 99 98.9 02/18/18 05:59 134/80 02/18/18 05:59 134/80 02/18/18 04:48 97.9 82 20 134/80 (98) 100 97.9 02/18/18 01:00 97.9 82 20 150/80 (103) 98 97.9 02/17/18 22:01 133/67 02/17/18 22:01 133/67 02/17/18 21:39 Room Air 02/17/18 20:50 88 149/84 02/17/18 20:00 98.1 88 20 149/84 (105) 100 98.1 02/17/18 16:00 98.1 97 20 139/89 (106) 100 98.1 02/17/18 13:46 132/87 02/17/18 13:46 132/87 Intake and Output 02/17/18 02/18/18 19:00 07:00 Intake Total 1090 ml 1405 ml Output Total 650 ml 300 ml Balance 440 ml 1105 ml Intake Free Water 100 ml 100 ml IV Total 675 ml 945 ml Tube Feeding 315 ml 360 ml Output Urine Total 650 ml 300 ml Laboratory Tests 02/18/18 03:49: Urine Eosinophils None seen 02/18/18 05:30: White Blood Count 8.3, Red Blood Count 3.38L, Hemoglobin 9.9L, Hematocrit 30.7L , Mean Corpuscular Volume 91, Mean Corpuscular Hemoglobin 29.3, Mean Corpuscular Hemoglobin Concent 32.2, Red Cell Distribution Width 15.7H, Platelet Count 180, Mean Platelet Volume 7.4, Neutrophils (%) (Auto) 84.7H, Lymphocytes (%) (Auto) 6.1L, Monocytes (%) (Auto) 7.7, Eosinophils (%) (Auto) 0.8, Basophils (%) (Auto) 0.6, Prothrombin Time 12.8H, Prothromb Time International Ratio 1.2H, Sodium Level 142, Potassium Level 3.4L, Chloride Level 108H, Carbon Dioxide Level 23, Anion Gap 11, Blood Urea Nitrogen 36H, Creatinine 1.9H, Estimat Glomerular Filtration Rate 31.6, Glucose Level 315H, Uric Acid 6.2, Calcium Level 8.4L, Phosphorus Level 2.7, Magnesium Level 1.9, Total Bilirubin 0.6, Aspartate Amino Transf (AST/SGOT) 56H, Alanine Aminotransferase (ALT/SGPT) 39, Alkaline Phosphatase 302H, Pro-B-Type Natriuretic Peptide 8929H, Total Protein 6.6, Albumin 1.8L, Globulin 4.8, Albumin/Globulin Ratio 0.4L Height (Feet): 6 Height (Inches): 1.00 Weight (Pounds): 152 General Appearance: no apparent distress, alert EENT: PERRL/EOMI, normal ENT inspection Neck: non-tender, normal alignment, supple Cardiovascular: normal peripheral pulses, normal rate, regularly irregular, pacemaker/AICD Respiratory/Chest: chest wall non-tender, lungs clear, normal breath sounds Neurologic: alert, other - left hemiplegia and right upper extremity 1/5 strength with right lower extremity 3/5 strength Skin: normal pigmentation, warm/dry Mela Hernandez NP Feb 18, 2018 12:42
--- NOTE | 2018-02-18 15:25 | Cardiology Progress Note ---
Assessment/Plan Status: stable, progressing Assessment/Plan Assessment: Toxic metabolic encephalopathy R CVA in mid-December 2017 at [facility] s/p L hemiparesis Atrial fibrillation on Coumadin CKD Anemia of chronic disease Hypothryoid Pancreatic cancer DM HTN HLD CAD s/p PCI 2009 Heart block s/p medtronic PPM renal artery stenosis s/p stent 2015 Plan: Statin Maintain coumadin for AFIB after hemorrhage progression of CVA ruled out on MRI/ CT (HOLD FOR PEG TUBE MONDAY) Plavix EEG - negative Permission hypertension PEG tube monday IV fluids NG tube feeds until PEG physical therapy Outpatient stress test Lasix to reduce pulmonary congestion family does not want patient intubated Supportive care Subjective Cardiovascular: Reports: no symptoms Respiratory: Reports: no symptoms Gastrointestinal/Abdominal: Reports: no symptoms Genitourinary: Reports: no symptoms Subjective MRI could not be done EEG with no seizure Possible PEG tube monday - INR now <2 No acute events otherwise Tube feed re-started Vitals stable CXR with mild congestion, lasix given Objective Last 24 Hour Vital Signs Date Time Temp Pulse Resp B/P (MAP) Pulse Ox O2 Delivery O2 Flow Rate FiO2 02/18/18 14:00 126/68 02/18/18 14:00 126/68 02/18/18 12:00 98.7 80 20 126/68 (87) 99 98.7 02/18/18 09:35 82 134/80 02/18/18 09:35 82 134/80 02/18/18 09:00 Room Air 02/18/18 08:00 98.9 79 20 136/87 (103) 99 98.9 02/18/18 05:59 134/80 02/18/18 05:59 134/80 02/18/18 04:48 97.9 82 20 134/80 (98) 100 97.9 02/18/18 01:00 97.9 82 20 150/80 (103) 98 97.9 02/17/18 22:01 133/67 02/17/18 22:01 133/67 02/17/18 21:39 Room Air 02/17/18 20:50 88 149/84 02/17/18 20:00 98.1 88 20 149/84 (105) 100 98.1 02/17/18 16:00 98.1 97 20 139/89 (106) 100 98.1 General Appearance: no apparent distress, alert EENT: PERRL/EOMI, normal ENT inspection Neck: non-tender, normal alignment Rhythm: NSR Cardiovascular: normal peripheral pulses, normal rate Respiratory/Chest: chest wall non-tender, lungs clear, decreased breath sounds , rhonchi - left Abdomen: normal bowel sounds, non tender Extremities: normal range of motion, non-tender Neurologic: associate loan officer II-XII grossly normal, no motor/sensory deficits Intake and Output 02/17/18 02/18/18 19:00 07:00 Intake Total 1090 ml 1405 ml Output Total 650 ml 300 ml Balance 440 ml 1105 ml Intake Free Water 100 ml 100 ml IV Total 675 ml 945 ml Tube Feeding 315 ml 360 ml Output Urine Total 650 ml 300 ml Laboratory Tests Test 02/18/18 03:49 02/18/18 05:30 Urine Eosinophils None seen (NONE SEEN) White Blood Count 8.3 K/UL (4.8-10.8) Red Blood Count 3.38 M/UL (4.20-5.40) L Hemoglobin 9.9 G/DL (12.0-16.0) L Hematocrit 30.7 % (37.0-47.0) L Mean Corpuscular Volume 91 FL (80-99) Mean Corpuscular Hemoglobin 29.3 PG (27.0-31.0) Mean Corpuscular Hemoglobin Concent 32.2 G/DL (32.0-36.0) Red Cell Distribution Width 15.7 % (11.6-14.8) H Platelet Count 180 K/UL (150-450) Mean Platelet Volume 7.4 FL (6.5-10.1) Neutrophils (%) (Auto) 84.7 % (45.0-75.0) H Lymphocytes (%) (Auto) 6.1 % (20.0-45.0) L Monocytes (%) (Auto) 7.7 % (1.0-10.0) Eosinophils (%) (Auto) 0.8 % (0.0-3.0) Basophils (%) (Auto) 0.6 % (0.0-2.0) Prothrombin Time 12.8 SEC (9.30-11.50) H Prothromb Time International Ratio 1.2 (0.9-1.1) H Sodium Level 142 MMOL/L (136-145) Potassium Level 3.4 MMOL/L (3.5-5.1) L Chloride Level 108 MMOL/L (98-107) H Carbon Dioxide Level 23 MMOL/L (21-32) Anion Gap 11 mmol/L (5-15) Blood Urea Nitrogen 36 mg/dL (7-18) H Creatinine 1.9 MG/DL (0.55-1.30) H Estimat Glomerular Filtration Rate 31.6 mL/min (>60) Glucose Level 315 MG/DL (74-106) H Uric Acid 6.2 MG/DL (2.6-7.2) Calcium Level 8.4 MG/DL (8.5-10.1) L Phosphorus Level 2.7 MG/DL (2.5-4.9) Magnesium Level 1.9 MG/DL (1.8-2.4) Total Bilirubin 0.6 MG/DL (0.2-1.0) Aspartate Amino Transf (AST/SGOT) 56 U/L (15-37) H Alanine Aminotransferase (ALT/SGPT) 39 U/L (12-78) Alkaline Phosphatase 302 U/L (46-116) H Pro-B-Type Natriuretic Peptide 8929 pg/mL (0-125) H Total Protein 6.6 G/DL (6.4-8.2) Albumin 1.8 G/DL (3.4-5.0) L Globulin 4.8 g/dL Albumin/Globulin Ratio 0.4 (1.0-2.7) L Kalin Rodriguez M.D. Feb 18, 2018 15:25
[2018-02-18 16:00] VITALS: BP 129/55
[2018-02-18 20:00] VITALS: BP 140/79
[2018-02-18] MEDS: Atorvastatin 20mg tab NG SCH (23:05)
[2018-02-18] MEDS ORDERED: D5 1/2NS 1,000 ML IV SCH (23:15)
[2018-02-19] VITALS (12 sets, daily range): BP systolic 94–145; BP diastolic 60–81
[2018-02-19] MEDS: HydrALAZINE 25mg tab NG SCH ×3 (06:16→21:52)
[2018-02-19] MEDS: Levemir Flexpen SUBQ SCH (06:18)
[2018-02-19] MEDS: NovoLOG Insulin Flexpen SUBQ SCH ×4 (06:30→21:51)
[2018-02-19 07:10] LABS: BASOPHILS % (AUTO) 0.5 % (0.0-2.0); EOSINOPHILS % (AUTO) 0.5 % (0.0-3.0); HEMATOCRIT 34.1 % (37.0-47.0); HEMOGLOBIN 10.9 G/DL (12.0-16.0); LYMPHOCYTES % (AUTO) 7.9 % (20.0-45.0); MEAN CORPUSCULAR VOLUME 92 FL (80-99); MONOCYTES % (AUTO) 8.9 % (1.0-10.0); NEUTROPHILS % (AUTO) 82.3 % (45.0-75.0); PLATELET COUNT 191 K/UL (150-450); RED BLOOD COUNT 3.71 M/UL (4.20-5.40); RED CELL DISTRIBUTION WIDTH 16.4 % (11.6-14.8); WHITE BLOOD COUNT 10.3 K/UL (4.8-10.8)
[2018-02-19 07:32] LABS: ALANINE AMINOTRANSFERASE 38 U/L (12-78); ALBUMIN 1.8 G/DL (3.4-5.0); ALBUMIN/GLOBULIN RATIO 0.4 (1.0-2.7); ALKALINE PHOSPHATASE 294 U/L (46-116); ANION GAP 12 mmol/L (5-15); ASPARTATE AMINO TRANSFERASE 56 U/L (15-37); BILIRUBIN,TOTAL 0.6 MG/DL (0.2-1.0); BLOOD UREA NITROGEN 39 mg/dL (7-18); CARBON DIOXIDE 21 MMOL/L (21-32); CHLORIDE 108 MMOL/L (98-107); CHOLESTEROL 96 MG/DL (< 200); HDL CHOLESTEROL 44 MG/DL (40-60); PHOSPHORUS 2.8 MG/DL (2.5-4.9); POTASSIUM 3.9 MMOL/L (3.5-5.1); SODIUM 141 MMOL/L (136-145); TRIGLYCERIDES 63 MG/DL (30-150)
[2018-02-19] MEDS ORDERED: DiphenhydrAMINE 50mg/ml Inj IVP PRN (08:15)
[2018-02-19] MEDS ORDERED: Atropine Inj 1mg/10ml Syr IV PRN (08:15)
[2018-02-19] MEDS ORDERED: fentaNYL 100 mcg/2 mL IV PRN (08:15)
[2018-02-19] MEDS ORDERED: Labetalol 5mg/ml 20ml vial IV PRN (08:15)
[2018-02-19] MEDS ORDERED: Midazolam 2mg/2ml Inj IVP PRN (08:15)
--- NOTE | 2018-02-19 08:24 | Anethesia Preoperative Eval ---
Anesthesia Pre-op PMH/ROS General Date of Evaluation: Feb 19, 2018 Time of Evaluation: 08:19 Anesthesiologist: connor ASA Score: ASA 3 Mallampati Score Class I : Soft palate, uvula, fauces, pillars visible Class II: Soft palate, uvula, fauces visible Class III: Soft palate, base of uvula visible Class IV: Only hard plate visible Mallampati Classification: Class II Surgeon: mile Diagnosis: failure to thrive Surgical Procedure: egd/peg Anesthesia History: none Social History: smoking - nonsmoker Family History: no anesthesia problems Allergies: Coded Allergies: No Known Allergies (Unverified , 02/13/18) Medications: see eMAR Past Medical History Cardiovascular: Reports: HTN, CAD, arrhythmia Gastrointestinal/Genitourinary: Reports: other - pancreatic cancer Neurologic/Psychiatric: Reports: CVA, other - toxic metabolic encephalopathy Endocrine: Reports: hypothyroidism Anesthesia Pre-op Phys. Exam Physician Exam Last Vital Signs Date Time Temp Pulse Resp B/P (MAP) Pulse Ox O2 Delivery O2 Flow Rate FiO2 02/19/18 06:16 142/64 02/19/18 00:00 97.7 96 20 100 97.7 02/18/18 21:00 Room Air Constitutional: NAD Neurologic: CN 2-12 intact Cardiovascular: other - irreg irreg Respiratory: CTA Gastrointestinal: S/NT/ND Airway Exam Mallampati Score: Class II MO: limited Neck: flexible TMD: 2fb ROM: limited Teeth: intact Anesthesia Pre-op A/P Labs Hematology Test 02/19/18 05:30 White Blood Count 10.3 K/UL (4.8-10.8) Red Blood Count 3.71 M/UL (4.20-5.40) L Hemoglobin 10.9 G/DL (12.0-16.0) L Hematocrit 34.1 % (37.0-47.0) L Mean Corpuscular Volume 92 FL (80-99) Mean Corpuscular Hemoglobin 29.5 PG (27.0-31.0) Mean Corpuscular Hemoglobin Concent 32.1 G/DL (32.0-36.0) Red Cell Distribution Width 16.4 % (11.6-14.8) H Platelet Count 191 K/UL (150-450) Mean Platelet Volume 8.4 FL (6.5-10.1) Neutrophils (%) (Auto) 82.3 % (45.0-75.0) H Lymphocytes (%) (Auto) 7.9 % (20.0-45.0) L Monocytes (%) (Auto) 8.9 % (1.0-10.0) Eosinophils (%) (Auto) 0.5 % (0.0-3.0) Basophils (%) (Auto) 0.5 % (0.0-2.0) Chemistry Test 02/19/18 05:30 Sodium Level 141 MMOL/L (136-145) Potassium Level 3.9 MMOL/L (3.5-5.1) Chloride Level 108 MMOL/L (98-107) H Carbon Dioxide Level 21 MMOL/L (21-32) Anion Gap 12 mmol/L (5-15) Blood Urea Nitrogen 39 mg/dL (7-18) H Creatinine 2.0 MG/DL (0.55-1.30) H Estimat Glomerular Filtration Rate 29.8 mL/min (>60) Glucose Level 173 MG/DL (74-106) #H Uric Acid 6.4 MG/DL (2.6-7.2) Calcium Level 9.0 MG/DL (8.5-10.1) Phosphorus Level 2.8 MG/DL (2.5-4.9) Total Bilirubin 0.6 MG/DL (0.2-1.0) Aspartate Amino Transf (AST/SGOT) 56 U/L (15-37) H Alanine Aminotransferase (ALT/SGPT) 38 U/L (12-78) Alkaline Phosphatase 294 U/L (46-116) H Total Protein 6.7 G/DL (6.4-8.2) Albumin 1.8 G/DL (3.4-5.0) L Globulin 4.9 g/dL Albumin/Globulin Ratio 0.4 (1.0-2.7) L Triglycerides Level 63 MG/DL (30-150) Cholesterol Level 96 MG/DL (< 200) LDL Cholesterol 49 mg/dL (<100) HDL Cholesterol 44 MG/DL (40-60) Cholesterol/HDL Ratio 2.2 (3.3-4.4) L Risk Assessment & Plan Assessment: asa3 Plan: mac Status Change Before Surgery: No Pre-Antibiotics Drug: cefoxitin 1gm Given Within 1 Hr of Incision: Yes Time Given: 10:07 Saira Garcia MD Feb 19, 2018 08:24
[2018-02-19] MEDS: Pancrease Cap NG SCH ×3 (09:00→18:57)
[2018-02-19] MEDS: Docusate 100mg/10ml Liq NG SCH ×3 (09:00→18:56)
[2018-02-19] MEDS: Enoxaparin Sodium 300mg/3ml vial SUBQ SCH (09:00)
--- NOTE | 2018-02-19 09:18 | Pre-Procedure Note/Attestation ---
Pre-Procedure Note/Attestation Complete Prior to Procedure Planned Procedure: not applicable Procedure Narrative: egd/peg Indications for Procedure Pre-Operative Diagnosis: FTT Attestation I attest that I discussed the nature of the procedure; its benefits; risks and complications; and alternatives (and the risks and benefits of such alternatives ), prior to the procedure, with the patient (or the patient's legal malt liquors sales representative). I attest that, if there was a reasonable possibility of needing a blood transfusion, the patient (or the patient's legal malt liquors sales representative) was given the [facility] standardized written summary, pursuant to the Son Kimm[place] Blood Safety Act ([place] Health and Safety Code # 1645, as amended). I attest that I re-evaluated the patient just prior to the surgery and that there has been no change in the patient's H&P, except as documented below: Papa May MD Feb 19, 2018 09:18
[2018-02-19] MEDS: Carvedilol 25mg Tab NG SCH ×2 (09:43→21:07)
[2018-02-19] MEDS ORDERED: cefOXitin 1gm Inj ONE (10:00)
[2018-02-19] MEDS ORDERED: Propofol 200mg/20ml IV ONE (10:00)
[2018-02-19] MEDS ORDERED: Lidocaine 1% MPF 10mg/ml 5ml ONE (10:00)
--- NOTE | 2018-02-19 10:01 | Endoscopy Procedure Note ---
Endoscopy Procedure Note General Indication for Procedure: FTT Procedures Performed: EGD, PEG Operative Findings/Diagnosis: same Specimen: none Pt Tolerated Procedure Well: Yes Estimated Blood Loss: none Anesthesia Anesthesiologist: tremaine Anesthesia: MAC Inserted Devices Implant(s) used?: No GI Core Measures 50 yrs or older w/o bx or poly: Not Applicable 10yrs. F/U not recommended: Not Applicable Papa May MD Feb 19, 2018 10:01
[2018-02-19] MEDS ORDERED: NS 500ML IVPB ONE (10:06)
[2018-02-19] MEDS ORDERED: cefOXitin 1gm Inj IVP ONE (10:07)
--- NOTE | 2018-02-19 10:41 | Immediate Post-Op Evaluation ---
Immediate Post-Op Evalulation Immediate Post-Op Evalulation Procedure: egd/peg Date of Evaluation: Feb 19, 2018 Time of Evaluation: 10:36 IV Fluids: 150ml 0.9ns Blood Products: none Estimated Blood Loss: negligible Blood Pressure Systolic: 94 Blood Pressure Diastolic: 60 Pulse Rate: 94 Respiratory Rate: 18 O2 Sat by Pulse Oximetry: 100 Temperature (Fahrenheit): 98.0 Pain Score (1-10): 0 Nausea: No Vomiting: No Complications none Patient Status: awake, reacts, patent Hydration Status: adequate Drug: cefoxitin 1gm Given Within 1 Hr of Incision: Yes Time Given: 10:07 Saira Garcia MD Feb 19, 2018 10:41
--- NOTE | 2018-02-19 10:45 | 48 Hour Post Anesthesia Eval ---
Post Anesthesia Evaluation Procedure: egd/peg Date of Evaluation: Feb 19, 2018 Time of Evaluation: 10:41 Blood Pressure Systolic: 112 0: 74 Pulse Rate: 99 Respiratory Rate: 18 Temperature (Fahrenheit): 98.0 O2 Sat by Pulse Oximetry: 100 Airway: patent Nausea: No Vomiting: No Pain Intensity: 0 Hydration Status: adequate Cardiopulmonary Status: stable Mental Status/LOC: patient returned to baseline Post-Anesthesia Complications: none Follow-up care needed: N/A Saira Garcia MD Feb 19, 2018 10:44
--- NOTE | 2018-02-19 11:31 | Cardiology Progress Note ---
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 at [facility] SM s/p L hemiparesis Atrial fibrillation on Coumadin CKD Anemia of chronic disease Hypothryoid Pancreatic cancer DM HTN HLD CAD s/p PCI 2009 Heart block s/p medtronic PPM renal artery stenosis s/p stent 2015 Plan: Statin Maintain coumadin for AFIB after hemorrhage progression of CVA ruled out on MRI/ CT (HOLD FOR PEG TUBE MONDAY) Plavix EEG - negative PEG tube monday IV fluids physical therapy Outpatient stress test Continue BP medications: coreg, amlodipine, hydralazine, imdur Lasix to reduce pulmonary congestion family does not want patient intubated Supportive care Subjective Cardiovascular: Reports: no symptoms Respiratory: Reports: no symptoms Gastrointestinal/Abdominal: Reports: no symptoms Genitourinary: Reports: no symptoms Subjective For PEG tube today No acute events, vitals stable, NGT clamped Objective Last 24 Hour Vital Signs Date Time Temp Pulse Resp B/P (MAP) Pulse Ox O2 Delivery O2 Flow Rate FiO2 02/19/18 11:09 97 96 18 122/63 100 Room Air 97.0 02/19/18 11:00 96 18 145/78 100 Room Air 02/19/18 10:45 96 18 138/81 100 Simple Mask 8 02/19/18 10:44 208.4 99 18 100 02/19/18 10:41 208.4 94 18 100 02/19/18 10:34 94 18 125/69 100 Simple Mask 8 02/19/18 10:29 59 18 112/74 100 Simple Mask 8 02/19/18 10:24 98 94 18 94/60 100 Simple Mask 8 98.0 02/19/18 09:43 76 142/72 02/19/18 09:43 76 142/72 02/19/18 09:00 Room Air 02/19/18 08:00 98.2 76 20 142/72 (95) 98 98.2 02/19/18 06:16 142/64 02/19/18 06:16 142/64 02/19/18 04:00 98.7 96 20 142/69 (93) 98 98.7 02/19/18 00:00 97.7 96 20 142/69 (93) 100 97.7 02/18/18 23:08 140/79 02/18/18 23:07 93 140/79 02/18/18 23:06 140/79 02/18/18 21:00 Room Air 02/18/18 20:00 98.7 93 20 140/79 (99) 100 98.7 02/18/18 16:00 97.9 72 19 129/55 (79) 100 97.9 02/18/18 14:00 126/68 02/18/18 14:00 126/68 02/18/18 12:00 98.7 80 20 126/68 (87) 99 98.7 Intake and Output 02/18/18 02/19/18 18:59 06:59 Intake Total 580 ml Output Total 950 ml 700 ml Balance -370 ml -700 ml Intake Free Water 100 ml IV Total 75 ml Tube Feeding 405 ml Output Urine Total 950 ml 700 ml Laboratory Tests Test 02/19/18 05:30 02/19/18 06:00 White Blood Count 10.3 K/UL (4.8-10.8) Red Blood Count 3.71 M/UL (4.20-5.40) L Hemoglobin 10.9 G/DL (12.0-16.0) L Hematocrit 34.1 % (37.0-47.0) L Mean Corpuscular Volume 92 FL (80-99) Mean Corpuscular Hemoglobin 29.5 PG (27.0-31.0) Mean Corpuscular Hemoglobin Concent 32.1 G/DL (32.0-36.0) Red Cell Distribution Width 16.4 % (11.6-14.8) H Platelet Count 191 K/UL (150-450) Mean Platelet Volume 8.4 FL (6.5-10.1) Neutrophils (%) (Auto) 82.3 % (45.0-75.0) H Lymphocytes (%) (Auto) 7.9 % (20.0-45.0) L Monocytes (%) (Auto) 8.9 % (1.0-10.0) Eosinophils (%) (Auto) 0.5 % (0.0-3.0) Basophils (%) (Auto) 0.5 % (0.0-2.0) Sodium Level 141 MMOL/L (136-145) Potassium Level 3.9 MMOL/L (3.5-5.1) Chloride Level 108 MMOL/L (98-107) H Carbon Dioxide Level 21 MMOL/L (21-32) Anion Gap 12 mmol/L (5-15) Blood Urea Nitrogen 39 mg/dL (7-18) H Creatinine 2.0 MG/DL (0.55-1.30) H Estimat Glomerular Filtration Rate 29.8 mL/min (>60) Glucose Level 173 MG/DL (74-106) #H Uric Acid 6.4 MG/DL (2.6-7.2) Calcium Level 9.0 MG/DL (8.5-10.1) Phosphorus Level 2.8 MG/DL (2.5-4.9) Total Bilirubin 0.6 MG/DL (0.2-1.0) Aspartate Amino Transf (AST/SGOT) 56 U/L (15-37) H Alanine Aminotransferase (ALT/SGPT) 38 U/L (12-78) Alkaline Phosphatase 294 U/L (46-116) H Total Protein 6.7 G/DL (6.4-8.2) Albumin 1.8 G/DL (3.4-5.0) L Globulin 4.9 g/dL Albumin/Globulin Ratio 0.4 (1.0-2.7) L Triglycerides Level 63 MG/DL (30-150) Cholesterol Level 96 MG/DL (< 200) LDL Cholesterol 49 mg/dL (<100) HDL Cholesterol 44 MG/DL (40-60) Cholesterol/HDL Ratio 2.2 (3.3-4.4) L Urine Eosinophils None seen (NONE SEEN) Kalin Rodriguez M.D. Feb 19, 2018 11:31
--- NOTE | 2018-02-19 12:09 | Nephrology Progress Note ---
Assessment/Plan Problem List: (1) Acute renal failure (2) Diabetic nephropathy (3) DM (diabetes mellitus) (4) Altered level of consciousness (5) Dehydration (6) Anemia (7) Acute decompensated heart failure Assessment Renal Failure, Likely Chronic due to DM / HTN , has 3+ Proteinuria Cr lower CHF decompensated Encephalopathy CVA with left Larry Anemia HypoThyroid Metastatic pancreatic Ca , s/p treatment with Chemo and Whipple resection at [facility] HTN DMII CAD HLD Plan Plan: Hold IV- again & One dose lasix- again check CXR : Congestion DC mind altering meds- Urine Studies- Mueller- Adjust BP meds- Avoid Nephrotoxics Monitor renal parameters Subjective ROS Limited/Unobtainable: No Constitutional: Reports: malaise, weakness Objective Objective Last 24 Hour Vital Signs Date Time Temp Pulse Resp B/P (MAP) Pulse Ox O2 Delivery O2 Flow Rate FiO2 02/19/18 11:09 97 96 18 122/63 100 Room Air 97.0 02/19/18 11:00 96 18 145/78 100 Room Air 02/19/18 10:45 96 18 138/81 100 Simple Mask 8 02/19/18 10:44 208.4 99 18 100 02/19/18 10:41 208.4 94 18 100 02/19/18 10:34 94 18 125/69 100 Simple Mask 8 02/19/18 10:29 59 18 112/74 100 Simple Mask 8 02/19/18 10:24 98 94 18 94/60 100 Simple Mask 8 98.0 02/19/18 09:43 76 142/72 02/19/18 09:43 76 142/72 02/19/18 09:00 Room Air 02/19/18 08:00 98.2 76 20 142/72 (95) 98 98.2 02/19/18 06:16 142/64 02/19/18 06:16 142/64 02/19/18 04:00 98.7 96 20 142/69 (93) 98 98.7 02/19/18 00:00 97.7 96 20 142/69 (93) 100 97.7 02/18/18 23:08 140/79 02/18/18 23:07 93 140/79 02/18/18 23:06 140/79 02/18/18 21:00 Room Air 8/19/18 20:00 98.7 93 20 140/79 (99) 100 98.7 02/18/18 16:00 97.9 72 19 129/55 (79) 100 97.9 02/18/18 14:00 126/68 02/18/18 14:00 126/68 Intake and Output 02/18/18 02/19/18 18:59 06:59 Intake Total 580 ml Output Total 950 ml 700 ml Balance -370 ml -700 ml Intake Free Water 100 ml IV Total 75 ml Tube Feeding 405 ml Output Urine Total 950 ml 700 ml Laboratory Tests 02/19/18 05:30: White Blood Count 10.3, Red Blood Count 3.71L, Hemoglobin 10.9L, Hematocrit 34.1L, Mean Corpuscular Volume 92, Mean Corpuscular Hemoglobin 29.5, Mean Corpuscular Hemoglobin Concent 32.1, Red Cell Distribution Width 16.4H, Platelet Count 191, Mean Platelet Volume 8.4, Neutrophils (%) (Auto) 82.3H, Lymphocytes (%) (Auto) 7.9L, Monocytes (%) (Auto) 8.9, Eosinophils (%) (Auto) 0.5, Basophils (%) (Auto) 0.5, Sodium Level 141, Potassium Level 3.9, Chloride Level 108H, Carbon Dioxide Level 21, Anion Gap 12, Blood Urea Nitrogen 39H, Creatinine 2.0H, Estimat Glomerular Filtration Rate 29.8, Glucose Level 173#H, Uric Acid 6.4, Calcium Level 9.0, Phosphorus Level 2.8, Total Bilirubin 0.6, Aspartate Amino Transf (AST/SGOT) 56H, Alanine Aminotransferase (ALT/SGPT) 38, Alkaline Phosphatase 294H, Total Protein 6.7, Albumin 1.8L, Globulin 4.9, Albumin/Globulin Ratio 0.4L, Triglycerides Level 63, Cholesterol Level 96, LDL Cholesterol 49, HDL Cholesterol 44, Cholesterol/HDL Ratio 2.2L 02/19/18 06:00: Urine Eosinophils None seen Height (Feet): 6 Height (Inches): 6.00 Weight (Pounds): 152 EENT: tonsillar exudate - NGT Cardiovascular: tachycardia Respiratory/Chest: decreased breath sounds, rhonchi - bilaterally Abdomen: distended Toney Meyer MD Feb 19, 2018 12:09
--- NOTE | 2018-02-19 12:41 | General Progress Note ---
Assessment/Plan Status: stable Assessment/Plan encephalopathy due to GMC -dc Remeron -start Zyprexa 2.5mg qhs Subjective Date patient seen: Feb 19, 2018 Neurologic/Psychiatric: Reports: anxiety, depressed, emotional problems Allergies: Coded Allergies: No Known Allergies (Unverified , 02/13/18) Objective Last 24 Hour Vital Signs Date Time Temp Pulse Resp B/P (MAP) Pulse Ox O2 Delivery O2 Flow Rate FiO2 02/19/18 11:09 97 96 18 122/63 100 Room Air 97.0 02/19/18 11:00 96 18 145/78 100 Room Air 02/19/18 10:45 96 18 138/81 100 Simple Mask 8 02/19/18 10:44 208.4 99 18 100 02/19/18 10:41 208.4 94 18 100 02/19/18 10:34 94 18 125/69 100 Simple Mask 8 02/19/18 10:29 59 18 112/74 100 Simple Mask 8 02/19/18 10:24 98 94 18 94/60 100 Simple Mask 8 98.0 02/19/18 09:43 76 142/72 02/19/18 09:43 76 142/72 02/19/18 09:00 Room Air 02/19/18 08:00 98.2 76 20 142/72 (95) 98 98.2 02/19/18 06:16 142/64 02/19/18 06:16 142/64 02/19/18 04:00 98.7 96 20 142/69 (93) 98 98.7 02/19/18 00:00 97.7 96 20 142/69 (93) 100 97.7 02/18/18 23:08 140/79 02/18/18 23:07 93 140/79 02/18/18 23:06 140/79 02/18/18 21:00 Room Air 02/18/18 20:00 98.7 93 20 140/79 (99) 100 98.7 02/18/18 16:00 97.9 72 19 129/55 (79) 100 97.9 02/18/18 14:00 126/68 02/18/18 14:00 126/68 Intake and Output 02/18/18 02/19/18 19:00 07:00 Intake Total 460 ml Output Total 950 ml 700 ml Balance -490 ml -700 ml Intake Free Water 100 ml Tube Feeding 360 ml Output Urine Total 950 ml 700 ml Laboratory Tests 02/19/18 05:30: White Blood Count 10.3, Red Blood Count 3.71L, Hemoglobin 10.9L, Hematocrit 34.1L, Mean Corpuscular Volume 92, Mean Corpuscular Hemoglobin 29.5, Mean Corpuscular Hemoglobin Concent 32.1, Red Cell Distribution Width 16.4H, Platelet Count 191, Mean Platelet Volume 8.4, Neutrophils (%) (Auto) 82.3H, Lymphocytes (%) (Auto) 7.9L, Monocytes (%) (Auto) 8.9, Eosinophils (%) (Auto) 0.5, Basophils (%) (Auto) 0.5, Sodium Level 141, Potassium Level 3.9, Chloride Level 108H, Carbon Dioxide Level 21, Anion Gap 12, Blood Urea Nitrogen 39H, Creatinine 2.0H, Estimat Glomerular Filtration Rate 29.8, Glucose Level 173#H, Uric Acid 6.4, Calcium Level 9.0, Phosphorus Level 2.8, Total Bilirubin 0.6, Aspartate Amino Transf (AST/SGOT) 56H, Alanine Aminotransferase (ALT/SGPT) 38, Alkaline Phosphatase 294H, Total Protein 6.7, Albumin 1.8L, Globulin 4.9, Albumin/Globulin Ratio 0.4L, Triglycerides Level 63, Cholesterol Level 96, LDL Cholesterol 49, HDL Cholesterol 44, Cholesterol/HDL Ratio 2.2L 02/19/18 06:00: Urine Eosinophils None seen Height (Feet): 6 Height (Inches): 6.00 Weight (Pounds): 152 General Appearance: no apparent distress, alert, confused Wai Lopez MD Feb 19, 2018 12:40
--- NOTE | 2018-02-19 12:47 | General Progress Note ---
Assessment/Plan Status: progressing Assessment/Plan 72 y/o female with h/o recent R CVA s/p L hemiparesis presented from [facility] for increased lethargy. 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 fibb (on coumadin) - held coumadin for now #CKD #Anemia #Hypothyroidism #Metastatic pancreatic CA (dx 2007, treated w/ neoadjuvant chemo) s/p pyloric sparing Whipple resection in 2009 at [facility] with recurrence in 2016 s/p chemotherapy) #T2DM #HTN #HLD #h/o heart block s/p PPM (Medtronic placed in 2012) #h/o renal artery stenosis s/p stent 2015 #h/o CAD s/p PCI in 2009 Plan: - Neurology consulted, appreciate rec's - Cardiology consulted for PPM eval if MRI safe, appreciate rec's - GI consulted for dysphagia, possible PEG placement, appreciate rec's - F/u ECHO - F/u carotid U/S - Venous duplex BLE negative for DVT - F/u urine cx - Check vitamin B12, folate, vitamin D, TSH, A1c, lipid panel - EKG showing A. fibb, rate controlled - EEG prelim abnormal, showing generalized slowing with R > L --> f/u final read - unable to perform MRI as pacemaker is Medtronic MRI conditional and logistics service representative has to turn it off first - F/u STAT CT head w/o IV contrast -- no acute pathology or changes from prior read - Okay to start anticoagulation per neurology -- start lovenox 70mg SC qd - INR 1.2 today. Need INR to be < 1.3 prior to PEG - PT/OT - ST eval -- failed swallow study x 3 - NG tube - NPO - IVF - Continue home meds - SSi - Avoid nephrotoxics - Cr stable at 2 - no chemotherapy for pancreatic CA per family due to multiple comorbidities and frailty - avoid mind-altering meds at this time PEG scheduled for today, son agreeable. Cleared for PEG per neurology. Held lovenox 12 hours prior to scheduled surgery. Son: Christie [phone] DVT ppx: SCDs Code Status: Full Hospital Classification Declaration: Based on this initial evaluation, and depending on the patient's clinical course, I anticipate that this patient will require hospitalization for 3-4 days for AMS and close respiratory/hemodynamic monitoring. Disposition: Once the patient is stable to leave the hospital, I anticipate the patient will likely be discharged to the following environment: [facility] I spend 35 minutes on this patient's case, and 24 minutes were dedicated to counseling and/or care coordination. Discussed with patient/family, nursing staff, SW/CM, neurologist, GI, and cardiology regarding clinical status, treatment course, and disposition planning. Subjective Date patient seen: Feb 19, 2018 Time patient seen: 12:22 ROS Limited/Unobtainable: Yes Allergies: Coded Allergies: No Known Allergies (Unverified , 02/13/18) All Systems: reviewed and negative except above Subjective Events of overnight noted Chart reviewed Patient somnolent Uncooperative at times Objective Last 24 Hour Vital Signs Date Time Temp Pulse Resp B/P (MAP) Pulse Ox O2 Delivery O2 Flow Rate FiO2 02/19/18 11:09 97 96 18 122/63 100 Room Air 97.0 02/19/18 11:00 96 18 145/78 100 Room Air 02/19/18 10:45 96 18 138/81 100 Simple Mask 8 02/19/18 10:44 208.4 99 18 100 02/19/18 10:41 208.4 94 18 100 02/19/18 10:34 94 18 125/69 100 Simple Mask 8 02/19/18 10:29 59 18 112/74 100 Simple Mask 8 02/19/18 10:24 98 94 18 94/60 100 Simple Mask 8 98.0 02/19/18 09:43 76 142/72 02/19/18 09:43 76 142/72 02/19/18 09:00 Room Air 02/19/18 08:00 98.2 76 20 142/72 (95) 98 98.2 02/19/18 06:16 142/64 02/19/18 06:16 142/64 02/19/18 04:00 98.7 96 20 142/69 (93) 98 98.7 02/19/18 00:00 97.7 96 20 142/69 (93) 100 97.7 02/18/18 23:08 140/79 02/18/18 23:07 93 140/79 02/18/18 23:06 140/79 02/18/18 21:00 Room Air 02/18/18 20:00 98.7 93 20 140/79 (99) 100 98.7 02/18/18 16:00 97.9 72 19 129/55 (79) 100 97.9 02/18/18 14:00 126/68 02/18/18 14:00 126/68 Intake and Output 02/18/18 02/19/18 19:00 07:00 Intake Total 460 ml Output Total 950 ml 700 ml Balance -490 ml -700 ml Intake Free Water 100 ml Tube Feeding 360 ml Output Urine Total 950 ml 700 ml Laboratory Tests 02/19/18 05:30: White Blood Count 10.3, Red Blood Count 3.71L, Hemoglobin 10.9L, Hematocrit 34.1L, Mean Corpuscular Volume 92, Mean Corpuscular Hemoglobin 29.5, Mean Corpuscular Hemoglobin Concent 32.1, Red Cell Distribution Width 16.4H, Platelet Count 191, Mean Platelet Volume 8.4, Neutrophils (%) (Auto) 82.3H, Lymphocytes (%) (Auto) 7.9L, Monocytes (%) (Auto) 8.9, Eosinophils (%) (Auto) 0.5, Basophils (%) (Auto) 0.5, Sodium Level 141, Potassium Level 3.9, Chloride Level 108H, Carbon Dioxide Level 21, Anion Gap 12, Blood Urea Nitrogen 39H, Creatinine 2.0H, Estimat Glomerular Filtration Rate 29.8, Glucose Level 173#H, Uric Acid 6.4, Calcium Level 9.0, Phosphorus Level 2.8, Total Bilirubin 0.6, Aspartate Amino Transf (AST/SGOT) 56H, Alanine Aminotransferase (ALT/SGPT) 38, Alkaline Phosphatase 294H, Total Protein 6.7, Albumin 1.8L, Globulin 4.9, Albumin/Globulin Ratio 0.4L, Triglycerides Level 63, Cholesterol Level 96, LDL Cholesterol 49, HDL Cholesterol 44, Cholesterol/HDL Ratio 2.2L 02/19/18 06:00: Urine Eosinophils None seen Height (Feet): 6 Height (Inches): 6.00 Weight (Pounds): 152 General Appearance: WD/WN, alert, lethargic, confused EENT: PERRL/EOMI, TMs normal Neck: non-tender, supple Cardiovascular: normal peripheral pulses, normal rate, regular rhythm, regularly irregular Respiratory/Chest: chest wall non-tender, decreased breath sounds Abdomen: normal bowel sounds, non tender, soft, no organomegaly Pelvis: normal external exam Edema: no edema noted Arm (L), no edema noted Arm (R) Neurologic: disoriented Skin: normal pigmentation Lymphatic: normal anterior cervical (L), normal anterior cervical (R) Saeid Barbosa M.D. Feb 19, 2018 12:47
[2018-02-19 14:31] LABS: INR 1.2 (0.9-1.1)
--- NOTE | 2018-02-19 17:00 | Procedure Note ---
DATE OF PROCEDURE: 02/19/2018 SURGEON: Papa May M.D. PROCEDURE: Upper endoscopy with PEG placement. ANESTHESIA: Dr. Mtz. INSTRUMENT: Olympus adult flexible upper endoscope. REASON FOR PROCEDURE: The procedure, risks, benefits, and possible consequences, including hemorrhage, aspiration, perforation and infection, and alternative treatments, were explained to the patient/legal guardian by Dr. Papa May and the patient/legal guardian understood and accepted these risks. INDICATION: Failure to thrive. PROCEDURE: After informed consent was obtained and the patient was adequately sedated, first Olympus upper endoscope was advanced from mouth into the second portion of the duodenum and retroflexion was performed in the stomach. Then, under endoscopic guidance, under sterile condition, a 20-Yakut pull type of G-tube was successfully placed in the epigastric area. The distance from the tip of the tube to skin was 2.5 cm in size. The patient tolerated the procedure very well without complication. SUMMARY FINDINGS: 1. Gastritis. 2. Status post successful PEG placement. RECOMMENDATIONS: Abdominal binder. Elevate the head of bed at all times. G-tube flush. G-tube care. The patient received a dose of antibiotics prior to this procedure. Plan to start tube feeding . I want to thank, Dr. Hall, for this kind referral. Papa May M.D. DR: GOKUL JOB#: [id number] CC: Shane Hall M.D.; Fax#: [phone]
--- NOTE | 2018-02-19 18:34 | Neurology Progress Note ---
Interim History Interim History Interim History Ms. Mcpherson is awake. She however is unresponsive. She is non-verbal. She is unable to follow any commands. She makes consistent eye contact on the right side only. 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 She had her PEG placed today. Review of Systems Neuro Review of Systems Unable to obtain. Objective Physical Exam Last Vital Signs Date Time Temp Pulse Resp B/P (MAP) Pulse Ox O2 Delivery O2 Flow Rate FiO2 02/19/18 15:48 99.0 100 20 126/70 (88) 100 99.0 02/19/18 11:09 Room Air 02/19/18 10:45 8 Laboratory Tests Test 02/19/18 05:30 02/19/18 06:00 02/19/18 14:00 02/19/18 14:20 White Blood Count 10.3 K/UL (4.8-10.8) Red Blood Count 3.71 M/UL (4.20-5.40) L Hemoglobin 10.9 G/DL (12.0-16.0) L Hematocrit 34.1 % (37.0-47.0) L Mean Corpuscular Volume 92 FL (80-99) Mean Corpuscular Hemoglobin 29.5 PG (27.0-31.0) Mean Corpuscular Hemoglobin Concent 32.1 G/DL (32.0-36.0) Red Cell Distribution Width 16.4 % (11.6-14.8) H Platelet Count 191 K/UL (150-450) Mean Platelet Volume 8.4 FL (6.5-10.1) Neutrophils (%) (Auto) 82.3 % (45.0-75.0) H Lymphocytes (%) (Auto) 7.9 % (20.0-45.0) L Monocytes (%) (Auto) 8.9 % (1.0-10.0) Eosinophils (%) (Auto) 0.5 % (0.0-3.0) Basophils (%) (Auto) 0.5 % (0.0-2.0) Sodium Level 141 MMOL/L (136-145) Potassium Level 3.9 MMOL/L (3.5-5.1) Chloride Level 108 MMOL/L (98-107) H Carbon Dioxide Level 21 MMOL/L (21-32) Anion Gap 12 mmol/L (5-15) Blood Urea Nitrogen 39 mg/dL (7-18) H Creatinine 2.0 MG/DL (0.55-1.30) H Estimat Glomerular Filtration Rate 29.8 mL/min (>60) Glucose Level 173 MG/DL (74-106) #H Uric Acid 6.4 MG/DL (2.6-7.2) Calcium Level 9.0 MG/DL (8.5-10.1) Phosphorus Level 2.8 MG/DL (2.5-4.9) Total Bilirubin 0.6 MG/DL (0.2-1.0) Aspartate Amino Transf (AST/SGOT) 56 U/L (15-37) H Alanine Aminotransferase (ALT/SGPT) 38 U/L (12-78) Alkaline Phosphatase 294 U/L (46-116) H Total Protein 6.7 G/DL (6.4-8.2) Albumin 1.8 G/DL (3.4-5.0) L Globulin 4.9 g/dL Albumin/Globulin Ratio 0.4 (1.0-2.7) L Triglycerides Level 63 MG/DL (30-150) Cholesterol Level 96 MG/DL (< 200) LDL Cholesterol 49 mg/dL (<100) HDL Cholesterol 44 MG/DL (40-60) Cholesterol/HDL Ratio 2.2 (3.3-4.4) L Urine Eosinophils None seen (NONE SEEN) Prothrombin Time 12.7 SEC (9.30-11.50) H Prothromb Time International Ratio 1.2 (0.9-1.1) H Stool Occult Blood Pending Neurologic Exam Objective PHYSICAL EXAMINATION: GENERAL: She is a well-developed, relatively well-nourished, black lady, lying in bed, in no acute distress. HEAD: Normocephalic and atraumatic. EENT: Examination benign. NECK: No neck rigidity was observed. NEUROLOGICAL EXAMINATION: MENTAL STATUS EXAMINATION: She was awake but not alert. She was non verbal. She was unable to follow simple commands. She was unable to cooperate for further mental status testing. SPEECH: She was mute. LANGUAGE: She was globally aphasic. CRANIAL NERVE EXAMINATION: II: She did blink to threat in the right field. She had a definite left visual field deficit. III, IV & : The external ocular movements were present but restricted. The pupils were 3 mm in diameter, equal, round, regular, and reactive to light. She did have a right gaze preference. V & VII: The corneal reflex was diminished on the left side compared to the right. She also had left greater than right VII central facial paresis. VIII: She was able to hear sounds and had no nystagmus. IX & X: The gag reflex was present, but significantly delayed. XI: The sternocleidomastoids and trapezii did function. XII: The tongue was in the midline. MOTOR SYSTEM: The tone was spastic in all 4 extremities. Examination of muscle mass revealed no focal wasting. Examination of power was impossible to perform on individual muscle groups. The left upper extremity was plegic. The left lower extremity was severely paretic with minimal withdrawal on deep painful stimuli. The right upper and lower extremities were also significantly paretic with minimal voluntary movement and withdrawal to deep pain. SENSORY EXAMINATION: She responded to deep pain with more robust responses on right-sided stimulation than left-sided stimulation, though all four extremities were not normal. REFLEXES: 3+ on the left and 2++ on the right at the biceps, triceps, brachioradialis, and knees. 0 at both ankles. The plantar responses were extensor bilaterally. COORDINATION, STANCE & GAIT: Could not be tested. Impression/Recommendations Diagnostic Impression 1. Ms. Janee Mcpherson is a 72-year-old, black lady, of unknown handedness, who does have a past history of hypertension, dyslipidemia, heart block - status post pacemaker implantation, coronary artery disease - status post percutaneous intervention and stent placement, atrial fibrillation, for which she was on Coumadin in the past and pancreatic cancer who approximately 1 month ago was taken to [facility] for a urinary tract infection and had a large right middle cerebral artery stroke there, and then was transferred to [facility] where she improved, and then to a group home where she started to deteriorate. She was brought into the [facility] emergency room for a decline in cognitive and motor function on 02/13/2018 and has since worsened more. 2. She is awake today. She however is unresponsive. She is non-verbal. She is unable to follow any commands. She makes consistent eye contact on the right side only. 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 Her PEG was placed today. 3. On neurological examination, at this time, she can be aroused but is aphasic and mute. She is unable to follow simple commands. She is unable to cooperate for further mental status testing. She has a left visual field cut, has a left greater than right VII central facial paresis, left upper extremity plegia, minimal left lower extremity movements, severe right upper extremity and right lower extremity weakness, pathologically brisk deep tendon reflexes, which are brisker on the left than on the right, and extensor plantar responses bilaterally. 4. The CT scan of the brain without contrast performed at [facility] on 02/13/2018 reveals a complete right middle cerebral artery territory infarct and in addition an infarct involving the right occipital area, which may be old. In addition, there is questionable brainstem pathology seen in the right dayana and midbrain. 5. As per Dr. Tarango the CT done on 02/16/18 reveals no acute pathology involving the left brain. Only reveals the old right brain strokes. 6. Laboratory data obtained thus far revealed that she is significantly anemic with a hemoglobin of 10.2 grams. The chemistry panel reveals a BUN elevated at 44 with a creatinine of 2.3. Her blood glucose elevated to 238, AST elevated to 86, alkaline phosphatase is elevated to 355, albumin low at 1.9, TSH is normal at 2.59. The urinalysis reveals 2+ leukocyte esterase, 2-4 RBCs and 5- 10 WBCs per high power field. 7. The EEG revealed right greater than left hemispheric dysfunction, focal right [id number] dysfunction, and bilateral frontotemporal polymorphic delta activity most probably due to a combination of the bilateral cerebral dysfunction and possibly an ongoing encephalopathic process. 8. The patient's history and neurological examination are most compatible with possible bilateral cerebral infarcts. The right brain infarct that occurred approximately 1 month ago is well visualized on the CT scan of the brain. There is a possibility that a left infarct is not visible on the CT, a less likely etiology would be an ictal phenomenon causing this kind of bilateral picture. Recommendations 1. Continue present management. 2. Physical, occupational and speech and language therapy. 3. Can restart anticoagulation from neurologic point of view. 4. Observe closely. Riki Jacobs M.D., M.S.P.H. RIKI JACOBS Feb 19, 2018 18:34
[2018-02-19] MEDS: Albuterol ud Inhalation HHN SCH ×2 (19:52→23:32)
[2018-02-19] MEDS: Atorvastatin 20mg tab NG SCH (21:06)
[2018-02-20] VITALS: BP 92/59
[2018-02-20] MEDS: Albuterol ud Inhalation HHN SCH ×6 (03:39→23:11)
[2018-02-20 04:00] VITALS: BP 108/50
[2018-02-20 05:20] LABS: BASOPHILS % (AUTO) 0.5 % (0.0-2.0); EOSINOPHILS % (AUTO) 0.1 % (0.0-3.0); HEMATOCRIT 32.7 % (37.0-47.0); HEMOGLOBIN 10.3 G/DL (12.0-16.0); LYMPHOCYTES % (AUTO) 7.7 % (20.0-45.0); MEAN CORPUSCULAR VOLUME 91 FL (80-99); MONOCYTES % (AUTO) 7.8 % (1.0-10.0); NEUTROPHILS % (AUTO) 83.9 % (45.0-75.0); PLATELET COUNT 176 K/UL (150-450); RED CELL DISTRIBUTION WIDTH 15.9 % (11.6-14.8); WHITE BLOOD COUNT 10.8 K/UL (4.8-10.8)
[2018-02-20 05:38] LABS: ALANINE AMINOTRANSFERASE 28 U/L (12-78); ALBUMIN 1.7 G/DL (3.4-5.0); ALBUMIN/GLOBULIN RATIO 0.4 (1.0-2.7); ALKALINE PHOSPHATASE 217 U/L (46-116); ANION GAP 9 mmol/L (5-15); ASPARTATE AMINO TRANSFERASE 41 U/L (15-37); BILIRUBIN,TOTAL 0.8 MG/DL (0.2-1.0); BLOOD UREA NITROGEN 43 mg/dL (7-18); CALCIUM 8.3 MG/DL (8.5-10.1); CARBON DIOXIDE 25 MMOL/L (21-32); CHLORIDE 110 MMOL/L (98-107); CREATININE 2.4 MG/DL (0.55-1.30); PHOSPHORUS 3.8 MG/DL (2.5-4.9); POTASSIUM 3.7 MMOL/L (3.5-5.1); SODIUM 144 MMOL/L (136-145)
[2018-02-20] MEDS: HydrALAZINE 25mg tab NG SCH ×3 (05:59→22:00)
[2018-02-20] MEDS: NovoLOG Insulin Flexpen SUBQ SCH ×4 (07:07→20:50)
[2018-02-20] MEDS: Levemir Flexpen SUBQ SCH (07:08)
[2018-02-20 08:31] VITALS: BP 112/61
[2018-02-20] MEDS: Pancrease Cap NG SCH ×3 (08:36→17:35)
[2018-02-20] MEDS: Docusate 100mg/10ml Liq NG SCH ×3 (08:36→17:35)
[2018-02-20] MEDS: Carvedilol 25mg Tab NG SCH ×2 (08:37→20:50)
[2018-02-20] MEDS: Enoxaparin Sodium 300mg/3ml vial SUBQ SCH (08:59)
[2018-02-20 11:37] VITALS: BP 129/88
--- NOTE | 2018-02-20 11:45 | Nephrology Progress Note ---
Assessment/Plan Problem List: (1) Acute renal failure (2) Diabetic nephropathy (3) DM (diabetes mellitus) (4) Altered level of consciousness (5) Dehydration (6) Anemia (7) Acute decompensated heart failure Assessment Renal Failure, Likely Chronic due to DM / HTN , has 3+ Proteinuria Cr lower CHF decompensated Encephalopathy CVA with left Larry Anemia HypoThyroid Metastatic pancreatic Ca , s/p treatment with Chemo and Whipple resection at [facility] HTN DMII CAD HLD Plan No IV check CXR DC mind altering meds- Urine Studies- Mueller- Adjust BP meds- Avoid Nephrotoxics Monitor renal parameters Subjective ROS Limited/Unobtainable: Yes Constitutional: Reports: malaise Objective Objective Last 24 Hour Vital Signs Date Time Temp Pulse Resp B/P (MAP) Pulse Ox O2 Delivery O2 Flow Rate FiO2 02/20/18 11:37 97.7 83 20 129/88 (102) 100 97.7 02/20/18 11:35 91 24 99 Nasal Cannula 2.0 28 02/20/18 11:35 28 02/20/18 11:25 95 24 98 Nasal Cannula 2.0 28 02/20/18 08:37 96 112/61 02/20/18 08:37 96 112/61 02/20/18 08:31 98.2 96 20 112/61 (78) 100 98.2 02/20/18 07:56 71 24 99 Nasal Cannula 2.0 28 02/20/18 07:56 36 02/20/18 07:49 99 Nasal Cannula 4.0 36 02/20/18 07:49 77 24 99 Nasal Cannula 4.0 36 02/20/18 07:49 Nasal Cannula 4.0 36 02/20/18 05:59 108/50 02/20/18 05:59 108/50 02/20/18 04:00 99.1 56 24 108/50 (69) 100 99.1 02/20/18 03:47 96 24 100 Nasal Cannula 4.0 36 02/20/18 03:41 36 02/20/18 03:40 93 26 99 Nasal Cannula 4.0 36 02/20/18 00:00 98.2 94 20 92/59 (70) 100 98.2 02/19/18 23:42 70 24 100 Nasal Cannula 4.0 36 02/19/18 23:34 21 02/19/18 23:33 94 24 99 Nasal Cannula 4.0 36 02/19/18 21:52 124/67 02/19/18 21:52 124/67 02/19/18 21:07 86 116/62 02/19/18 21:00 Nasal Cannula 4.0 02/19/18 20:16 Nasal Cannula 4.0 36 02/19/18 20:16 97 Nasal Cannula 4.0 36 02/19/18 20:00 62 24 97 Nasal Cannula 4.0 36 02/19/18 20:00 98.8 86 21 116/62 (80) 98 98.8 02/19/18 19:50 21 02/19/18 19:50 56 28 88 Room Air 21 02/19/18 19:50 56 28 Room Air 21 02/19/18 15:48 99.0 100 20 126/70 (88) 100 99.0 02/19/18 14:00 126/70 02/19/18 14:00 126/70 02/19/18 13:12 98.2 92 20 124/67 (86) 100 98.2 Intake and Output 02/19/18 02/20/18 19:00 07:00 Intake Total 270 ml 160 ml Output Total 650 ml 300 ml Balance -380 ml -140 ml IV Total 250 ml Tube Feeding 20 ml 160 ml Output Urine Total 650 ml 300 ml # Bowel Movements 2 1 Laboratory Tests 02/19/18 14:00: Prothrombin Time 12.7H, Prothromb Time International Ratio 1.2H 02/19/18 14:20: Stool Occult Blood Positive 02/19/18 21:00: Arterial Blood pH 7.526H, Arterial Blood Partial Pressure CO2 25.1L, Arterial Blood Partial Pressure O2 62.9L, Arterial Blood HCO3 20.3L, Arterial Blood Oxygen Saturation 91.6L, Arterial Blood Base Excess -1.4, Jasiel Test N/a 02/20/18 04:50: White Blood Count 10.8, Red Blood Count 3.60L, Hemoglobin 10.3L, Hematocrit 32.7L, Mean Corpuscular Volume 91, Mean Corpuscular Hemoglobin 28.5, Mean Corpuscular Hemoglobin Concent 31.4L, Red Cell Distribution Width 15.9H, Platelet Count 176, Mean Platelet Volume 7.4, Neutrophils (%) (Auto) 83.9H, Lymphocytes (%) (Auto) 7.7L, Monocytes (%) (Auto) 7.8, Eosinophils (%) (Auto) 0.1, Basophils (%) (Auto) 0.5, Sodium Level 144, Potassium Level 3.7, Chloride Level 110H, Carbon Dioxide Level 25, Anion Gap 9, Blood Urea Nitrogen 43H, Creatinine 2.4H, Estimat Glomerular Filtration Rate 24.2, Glucose Level 181H, Calcium Level 8.3L, Phosphorus Level 3.8, Magnesium Level 1.9, Total Bilirubin 0.8, Aspartate Amino Transf (AST/SGOT) 41H, Alanine Aminotransferase (ALT/SGPT) 28, Alkaline Phosphatase 217H, C-Reactive Protein, Quantitative 27.7H, Pro-B- Type Natriuretic Peptide [id number], Total Protein 6.4, Albumin 1.7L, Globulin 4.7, Albumin/Globulin Ratio 0.4L Height (Feet): 6 Height (Inches): 6.00 Weight (Pounds): 152 General Appearance: lethargic, mild distress Cardiovascular: tachycardia Respiratory/Chest: crackles/rales Abdomen: distended, other - PEG Toney Meyer MD Feb 20, 2018 11:45
--- NOTE | 2018-02-20 13:10 | Cardiology Progress Note ---
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 at [facility] SM s/p L hemiparesis Atrial fibrillation on Coumadin CKD Anemia of chronic disease Hypothryoid Pancreatic cancer DM HTN HLD CAD s/p PCI 2009 Heart block s/p medtronic PPM renal artery stenosis s/p stent 2015 Plan: Statin Restart coumadin for AFIB Plavix EEG - negative physical therapy Continue BP medications: coreg, amlodipine, hydralazine, imdur Lasix to reduce pulmonary congestion, monitor renal function, urine electrolytes family does not want patient intubated Supportive care Dispo planning Subjective Cardiovascular: Reports: no symptoms Respiratory: Reports: no symptoms Gastrointestinal/Abdominal: Reports: no symptoms Genitourinary: Reports: no symptoms Subjective PEG tube placed, no acute events, vitals stable, awaiting dispo, no distress BNP and creatinine elevated. Objective Last 24 Hour Vital Signs Date Time Temp Pulse Resp B/P (MAP) Pulse Ox O2 Delivery O2 Flow Rate FiO2 02/20/18 11:37 97.7 83 20 129/88 (102) 100 97.7 02/20/18 11:35 91 24 99 Nasal Cannula 2.0 28 02/20/18 11:35 28 02/20/18 11:25 95 24 98 Nasal Cannula 2.0 28 02/20/18 08:37 96 112/61 02/20/18 08:37 96 112/61 02/20/18 08:31 98.2 96 20 112/61 (78) 100 98.2 02/20/18 07:56 71 24 99 Nasal Cannula 2.0 28 02/20/18 07:56 36 02/20/18 07:49 99 Nasal Cannula 4.0 36 02/20/18 07:49 77 24 99 Nasal Cannula 4.0 36 02/20/18 07:49 Nasal Cannula 4.0 36 02/20/18 05:59 108/50 02/20/18 05:59 108/50 02/20/18 04:00 99.1 56 24 108/50 (69) 100 99.1 02/20/18 03:47 96 24 100 Nasal Cannula 4.0 36 02/20/18 03:41 36 02/20/18 03:40 93 26 99 Nasal Cannula 4.0 36 02/20/18 00:00 98.2 94 20 92/59 (70) 100 98.2 02/19/18 23:42 70 24 100 Nasal Cannula 4.0 36 02/19/18 23:34 21 02/19/18 23:33 94 24 99 Nasal Cannula 4.0 36 02/19/18 21:52 124/67 18 21:52 124/67 02/19/18 21:07 86 116/62 02/19/18 21:00 Nasal Cannula 4.0 02/19/18 20:16 Nasal Cannula 4.0 36 02/19/18 20:16 97 Nasal Cannula 4.0 36 02/19/18 20:00 62 24 97 Nasal Cannula 4.0 36 02/19/18 20:00 98.8 86 21 116/62 (80) 98 98.8 02/19/18 19:50 21 02/19/18 19:50 56 28 88 Room Air 21 02/19/18 19:50 56 28 Room Air 21 02/19/18 15:48 99.0 100 20 126/70 (88) 100 99.0 02/19/18 14:00 126/70 02/19/18 14:00 126/70 02/19/18 13:12 98.2 92 20 124/67 (86) 100 98.2 General Appearance: no apparent distress, alert EENT: PERRL/EOMI, normal ENT inspection Neck: non-tender, normal alignment Rhythm: NSR Cardiovascular: normal peripheral pulses, normal rate, regular rhythm Respiratory/Chest: chest wall non-tender, respiratory distress, rhonchi - bilaterally Abdomen: normal bowel sounds, non tender Extremities: normal range of motion, non-tender 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 Intake and Output 02/19/18 02/20/18 19:00 07:00 Intake Total 270 ml 160 ml Output Total 650 ml 300 ml Balance -380 ml -140 ml IV Total 250 ml Tube Feeding 20 ml 160 ml Output Urine Total 650 ml 300 ml # Bowel Movements 2 1 Laboratory Tests Test 02/19/18 14:00 02/19/18 14:20 02/19/18 21:00 02/20/18 04:50 Prothrombin Time 12.7 SEC (9.30-11.50) H Prothromb Time International Ratio 1.2 (0.9-1.1) H Stool Occult Blood Positive (NEGATIVE) Arterial Blood pH 7.526 (7.350-7.450) Arterial Blood Partial Pressure CO2 25.1 mmHg (35.0-45.0) L Arterial Blood Partial Pressure O2 62.9 mmHg (75.0-100.0) L Arterial Blood HCO3 20.3 mmol/L (22.0-26.0) L Arterial Blood Oxygen Saturation 91.6 % (92.0-98.0) L Arterial Blood Base Excess -1.4 Jasiel Test N/a White Blood Count 10.8 K/UL (4.8-10.8) Red Blood Count 3.60 M/UL (4.20-5.40) L Hemoglobin 10.3 G/DL (12.0-16.0) L Hematocrit 32.7 % (37.0-47.0) L Mean Corpuscular Volume 91 FL (80-99) Mean Corpuscular Hemoglobin 28.5 PG (27.0-31.0) Mean Corpuscular Hemoglobin Concent 31.4 G/DL (32.0-36.0) L Red Cell Distribution Width 15.9 % (11.6-14.8) H Platelet Count 176 K/UL (150-450) Mean Platelet Volume 7.4 FL (6.5-10.1) Neutrophils (%) (Auto) 83.9 % (45.0-75.0) H Lymphocytes (%) (Auto) 7.7 % (20.0-45.0) L Monocytes (%) (Auto) 7.8 % (1.0-10.0) Eosinophils (%) (Auto) 0.1 % (0.0-3.0) Basophils (%) (Auto) 0.5 % (0.0-2.0) Sodium Level 144 MMOL/L (136-145) Potassium Level 3.7 MMOL/L (3.5-5.1) Chloride Level 110 MMOL/L (98-107) H Carbon Dioxide Level 25 MMOL/L (21-32) Anion Gap 9 mmol/L (5-15) Blood Urea Nitrogen 43 mg/dL (7-18) H Creatinine 2.4 MG/DL (0.55-1.30) H Estimat Glomerular Filtration Rate 24.2 mL/min (>60) Glucose Level 181 MG/DL (74-106) H Calcium Level 8.3 MG/DL (8.5-10.1) L Phosphorus Level 3.8 MG/DL (2.5-4.9) Magnesium Level 1.9 MG/DL (1.8-2.4) Total Bilirubin 0.8 MG/DL (0.2-1.0) Aspartate Amino Transf (AST/SGOT) 41 U/L (15-37) H Alanine Aminotransferase (ALT/SGPT) 28 U/L (12-78) Alkaline Phosphatase 217 U/L (46-116) H C-Reactive Protein, Quantitative 21.7 mg/dL (0.00-0.90) H Pro-B-Type Natriuretic Peptide 97612 pg/mL (0-125) H Total Protein 6.4 G/DL (6.4-8.2) Albumin 1.7 G/DL (3.4-5.0) L Globulin 4.7 g/dL Albumin/Globulin Ratio 0.4 (1.0-2.7) L Kalin Rodriguez M.D. Feb 20, 2018 13:10
--- NOTE | 2018-02-20 13:38 | Diagnostic Imaging Report ---
Indication: Cough Technique: One view of the chest Comparison: 02/18/2018 Findings: Left chest port catheter is again demonstrated. Right chest pacemaker is again demonstrated. Interim removal of previously demonstrated nasogastric tube. The heart remains enlarged. Lungs and pleural spaces are clear except for mild chronic appearing interstitial prominence and bronchial wall thickening. Impression: No definite acute process Findings as noted Note interim nasogastric tube removal
--- NOTE | 2018-02-20 13:55 | GI Progress Note ---
Assessment/Plan Problems: (1) Diabetic nephropathy ICD Codes: E11.21 - Type 2 diabetes mellitus with diabetic nephropathy SNOMED: 54391561, 348657641 (2) Encounter for PEG (percutaneous endoscopic gastrostomy) ICD Codes: Z43.1 - Encounter for attention to gastrostomy SNOMED: 772535563, 812930999 (3) Severe malnutrition ICD Codes: E43 - Unspecified severe protein-calorie malnutrition SNOMED: 90869236 (4) Anemia ICD Codes: D64.9 - Anemia, unspecified SNOMED: 831100664 (5) Dehydration ICD Codes: E86.0 - Dehydration SNOMED: 30793451 (6) Failure to thrive SNOMED: 00721031 (7) CVA (cerebral vascular accident) ICD Codes: I63.9 - Cerebral infarction, unspecified SNOMED: 332063284 Qualifiers: Qualified Codes: I63.511 - Cerebral infarction due to unspecified occlusion or stenosis of right middle cerebral artery (8) DM (diabetes mellitus) ICD Codes: E11.9 - Type 2 diabetes mellitus without complications SNOMED: 59514818 Status: unchanged Status Narrative Discussed with Dr. May. Assessment/Plan SUMMARY FINDINGS: 1. Gastritis. 2. Status post successful PEG placement. GTFs, reports of high residuals >> feedings on hold RECOMMENDATIONS: restart GTFs at low rate no reglan given acute ARF ppi GT site care prn transfusions fu labs dc planning The patient was seen and examined at bedside and all new and available data was reviewed in the patients chart. I agree with the above findings, impression and plan. (Patient seen earlier today. Signature stamp does not reflect patient encounter time.). - Papa May MD Subjective Subjective limited Objective Last 24 Hour Vital Signs Date Time Temp Pulse Resp B/P (MAP) Pulse Ox O2 Delivery O2 Flow Rate FiO2 02/20/18 11:37 97.7 83 20 129/88 (102) 100 97.7 02/20/18 11:35 91 24 99 Nasal Cannula 2.0 02/20/18 11:35 28 02/20/18 11:25 95 24 98 Nasal Cannula 2.0 02/20/18 09:00 Nasal Cannula 2.0 02/20/18 08:37 96 112/61 02/20/18 08:37 96 112/61 02/20/18 08:31 98.2 96 20 112/61 (78) 100 98.2 02/20/18 07:56 71 24 99 Nasal Cannula 2.0 28 02/20/18 07:56 36 02/20/18 07:49 99 Nasal Cannula 4.0 36 02/20/18 07:49 77 24 99 Nasal Cannula 4.0 36 02/20/18 07:49 Nasal Cannula 4.0 36 02/20/18 05:59 108/50 02/20/18 05:59 108/50 02/20/18 04:00 99.1 56 24 108/50 (69) 100 99.1 02/20/18 03:47 96 24 100 Nasal Cannula 4.0 36 02/20/18 03:41 36 02/20/18 03:40 93 26 99 Nasal Cannula 4.0 36 02/20/18 00:00 98.2 94 20 92/59 (70) 100 98.2 02/19/18 23:42 70 24 100 Nasal Cannula 4.0 36 02/19/18 23:34 21 02/19/18 23:33 94 24 99 Nasal Cannula 4.0 36 02/19/18 21:52 124/67 02/19/18 21:52 124/67 02/19/18 21:07 86 116/62 02/19/18 21:00 Nasal Cannula 4.0 02/19/18 20:16 Nasal Cannula 4.0 36 02/19/18 20:16 97 Nasal Cannula 4.0 36 02/19/18 20:00 62 24 97 Nasal Cannula 4.0 36 02/19/18 20:00 98.8 86 21 116/62 (80) 98 98.8 02/19/18 19:50 21 02/19/18 19:50 56 28 88 Room Air 21 02/19/18 19:50 56 28 Room Air 21 02/19/18 15:48 99.0 100 20 126/70 (88) 100 99.0 02/19/18 14:00 126/70 02/19/18 14:00 126/70 Intake and Output 02/19/18 02/20/18 19:00 07:00 Intake Total 270 ml 160 ml Output Total 650 ml 300 ml Balance -380 ml -140 ml IV Total 250 ml Tube Feeding 20 ml 160 ml Output Urine Total 650 ml 300 ml # Bowel Movements 2 1 Laboratory Tests Test 02/19/18 14:00 02/19/18 14:20 02/19/18 21:00 02/20/18 04:50 Prothrombin Time 12.7 SEC (9.30-11.50) H Prothromb Time International Ratio 1.2 (0.9-1.1) H Stool Occult Blood Positive (NEGATIVE) Arterial Blood pH 7.526 (7.350-7.450) Arterial Blood Partial Pressure CO2 25.1 mmHg (35.0-45.0) L Arterial Blood Partial Pressure O2 62.9 mmHg (75.0-100.0) L Arterial Blood HCO3 20.3 mmol/L (22.0-26.0) L Arterial Blood Oxygen Saturation 91.6 % (92.0-98.0) L Arterial Blood Base Excess -1.4 Jasiel Test N/a White Blood Count 10.8 K/UL (4.8-10.8) Red Blood Count 3.60 M/UL (4.20-5.40) L Hemoglobin 10.3 G/DL (12.0-16.0) L Hematocrit 32.7 % (37.0-47.0) L Mean Corpuscular Volume 91 FL (80-99) Mean Corpuscular Hemoglobin 28.5 PG (27.0-31.0) Mean Corpuscular Hemoglobin Concent 31.4 G/DL (32.0-36.0) L Red Cell Distribution Width 15.9 % (11.6-14.8) H Platelet Count 176 K/UL (150-450) Mean Platelet Volume 7.4 FL (6.5-10.1) Neutrophils (%) (Auto) 83.9 % (45.0-75.0) H Lymphocytes (%) (Auto) 7.7 % (20.0-45.0) L Monocytes (%) (Auto) 7.8 % (1.0-10.0) Eosinophils (%) (Auto) 0.1 % (0.0-3.0) Basophils (%) (Auto) 0.5 % (0.0-2.0) Sodium Level 144 MMOL/L (136-145) Potassium Level 3.7 MMOL/L (3.5-5.1) Chloride Level 110 MMOL/L (98-107) H Carbon Dioxide Level 25 MMOL/L (21-32) Anion Gap 9 mmol/L (5-15) Blood Urea Nitrogen 43 mg/dL (7-18) H Creatinine 2.4 MG/DL (0.55-1.30) H Estimat Glomerular Filtration Rate 24.2 mL/min (>60) Glucose Level 181 MG/DL (74-106) H Calcium Level 8.3 MG/DL (8.5-10.1) L Phosphorus Level 3.8 MG/DL (2.5-4.9) Magnesium Level 1.9 MG/DL (1.8-2.4) Total Bilirubin 0.8 MG/DL (0.2-1.0) Aspartate Amino Transf (AST/SGOT) 41 U/L (15-37) H Alanine Aminotransferase (ALT/SGPT) 28 U/L (12-78) Alkaline Phosphatase 217 U/L (46-116) H C-Reactive Protein, Quantitative 21.7 mg/dL (0.00-0.90) H Pro-B-Type Natriuretic Peptide 33889 pg/mL (0-125) H Total Protein 6.4 G/DL (6.4-8.2) Albumin 1.7 G/DL (3.4-5.0) L Globulin 4.7 g/dL Albumin/Globulin Ratio 0.4 (1.0-2.7) L Height (Feet): 6 Height (Inches): 6.00 Weight (Pounds): 152 General Appearance: alert, thin Cardiovascular: normal rate Abdominal Exam: normal bowel sounds, non tender, soft, GT site - c/d/i Edil Dawn NP Feb 20, 2018 13:55
[2018-02-20] MEDS ORDERED: D5 1/2NS 1000ml IV ONE (14:58)
[2018-02-20 16:04] VITALS: BP 121/93
[2018-02-20 16:29] LABS: APPEARANCE,URINE CLEAR; BILIRUBIN, URINE NEGATIVE (NEGATIVE); GLUCOSE, URINE (UA) NEGATIVE (NEGATIVE); KETONES,URINE NEGATIVE (NEGATIVE); LEUKOCYTE ESTERASE ,URINE 3+ (NEGATIVE); NITRITE,URINE NEGATIVE (NEGATIVE); PH,URINE 5 (4.5-8.0); PROTEIN,URINE 2+ (NEGATIVE); UROBILINOGEN,URINE 1 MG/DL (0.0-1.0)
[2018-02-20 16:30] LABS: COLOR,URINE YELLOW
--- NOTE | 2018-02-20 19:57 | Neurology Progress Note ---
Interim History Interim History Interim History Ms. Mcpherson was sleeping when I went to see her. She could be easily aroused. When aroused she stays awake briefly. She however is unresponsive. She is non-verbal. She is unable to follow any commands. She makes consistent eye contact on the right side only. 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 Her PEG is functioning well. Review of Systems Neuro Review of Systems Unable to obtain. Objective Physical Exam Last Vital Signs Date Time Temp Pulse Resp B/P (MAP) Pulse Ox O2 Delivery O2 Flow Rate FiO2 02/20/18 19:51 Nasal Cannula 2.0 28 02/20/18 19:51 98 02/20/18 19:50 79 24 02/20/18 16:04 98.0 121/93 (102) 98.0 Laboratory Tests Test 02/19/18 21:00 02/20/18 04:50 02/20/18 16:00 Arterial Blood pH 7.526 (7.350-7.450) Arterial Blood Partial Pressure CO2 25.1 mmHg (35.0-45.0) L Arterial Blood Partial Pressure O2 62.9 mmHg (75.0-100.0) L Arterial Blood HCO3 20.3 mmol/L (22.0-26.0) L Arterial Blood Oxygen Saturation 91.6 % (92.0-98.0) L Arterial Blood Base Excess -1.4 Jasiel Test N/a White Blood Count 10.8 K/UL (4.8-10.8) Red Blood Count 3.60 M/UL (4.20-5.40) L Hemoglobin 10.3 G/DL (12.0-16.0) L Hematocrit 32.7 % (37.0-47.0) L Mean Corpuscular Volume 91 FL (80-99) Mean Corpuscular Hemoglobin 28.5 PG (27.0-31.0) Mean Corpuscular Hemoglobin Concent 31.4 G/DL (32.0-36.0) L Red Cell Distribution Width 15.9 % (11.6-14.8) H Platelet Count 176 K/UL (150-450) Mean Platelet Volume 7.4 FL (6.5-10.1) Neutrophils (%) (Auto) 83.9 % (45.0-75.0) H Lymphocytes (%) (Auto) 7.7 % (20.0-45.0) L Monocytes (%) (Auto) 7.8 % (1.0-10.0) Eosinophils (%) (Auto) 0.1 % (0.0-3.0) Basophils (%) (Auto) 0.5 % (0.0-2.0) Sodium Level 144 MMOL/L (136-145) Potassium Level 3.7 MMOL/L (3.5-5.1) Chloride Level 110 MMOL/L (98-107) H Carbon Dioxide Level 25 MMOL/L (21-32) Anion Gap 9 mmol/L (5-15) Blood Urea Nitrogen 43 mg/dL (7-18) H Creatinine 2.4 MG/DL (0.55-1.30) H Estimat Glomerular Filtration Rate 24.2 mL/min (>60) Glucose Level 181 MG/DL (74-106) H Calcium Level 8.3 MG/DL (8.5-10.1) L Phosphorus Level 3.8 MG/DL (2.5-4.9) Magnesium Level 1.9 MG/DL (1.8-2.4) Total Bilirubin 0.8 MG/DL (0.2-1.0) Aspartate Amino Transf (AST/SGOT) 41 U/L (15-37) H Alanine Aminotransferase (ALT/SGPT) 28 U/L (12-78) Alkaline Phosphatase 217 U/L (46-116) H C-Reactive Protein, Quantitative 21.7 mg/dL (0.00-0.90) H Pro-B-Type Natriuretic Peptide 58728 pg/mL (0-125) H Total Protein 6.4 G/DL (6.4-8.2) Albumin 1.7 G/DL (3.4-5.0) L Globulin 4.7 g/dL Albumin/Globulin Ratio 0.4 (1.0-2.7) L Urine Color Yellow Urine Appearance Clear Urine pH 5 (4.5-8.0) Urine Specific [place] 1.015 (1.005-1.035) Urine Protein 2+ (NEGATIVE) H Urine Glucose (UA) Negative (NEGATIVE) Urine Ketones Negative (NEGATIVE) Urine Occult Blood 1+ (NEGATIVE) H Urine Nitrite Negative (NEGATIVE) Urine Bilirubin Negative (NEGATIVE) Urine Urobilinogen 1 MG/DL (0.0-1.0) H Urine Leukocyte Esterase 3+ (NEGATIVE) H Urine RBC 2-4 /HPF (0 - 2) H Urine WBC 5-10 /HPF (0 - 2) H Urine Squamous Epithelial Cells Few /LPF (NONE/OCC) Urine Bacteria Moderate /HPF (NONE) H Neurologic Exam Objective PHYSICAL EXAMINATION: GENERAL: She is a well-developed, relatively well-nourished, black lady, lying in bed, in no acute distress. HEAD: Normocephalic and atraumatic. EENT: Examination benign. NECK: No neck rigidity was observed. NEUROLOGICAL EXAMINATION: MENTAL STATUS EXAMINATION: When aroused, she was awake but not alert. She was non verbal. She was unable to follow simple commands. She was unable to cooperate for further mental status testing. SPEECH: She was mute. LANGUAGE: She was globally aphasic. CRANIAL NERVE EXAMINATION: II: She did blink to threat in the right field. She had a definite left visual field deficit. III, IV & : The external ocular movements were present but restricted. The pupils were 3 mm in diameter, equal, round, regular, and reactive to light. She did have a right gaze preference. V & VII: The corneal reflex was diminished on the left side compared to the right. She also had left greater than right VII central facial paresis. VIII: She was able to hear sounds and had no nystagmus. IX & X: The gag reflex was present, but significantly delayed. XI: The sternocleidomastoids and trapezii did function. XII: The tongue was in the midline. MOTOR SYSTEM: The tone was spastic in all 4 extremities. Examination of muscle mass revealed no focal wasting. Examination of power was impossible to perform on individual muscle groups. The left upper extremity was plegic. The left lower extremity was severely paretic with minimal withdrawal on deep painful stimuli. The right upper and lower extremities were also significantly paretic with minimal voluntary movement and withdrawal to deep pain. SENSORY EXAMINATION: She responded to deep pain with more robust responses on right-sided stimulation than left-sided stimulation, though all four extremities were not normal. REFLEXES: 3+ on the left and 2++ on the right at the biceps, triceps, brachioradialis, and knees. 0 at both ankles. The plantar responses were extensor bilaterally. COORDINATION, STANCE & GAIT: Could not be tested. Impression/Recommendations Diagnostic Impression 1. Ms. Janee Mcpherson is a 72-year-old, black lady, of unknown handedness, who does have a past history of hypertension, dyslipidemia, heart block - status post pacemaker implantation, coronary artery disease - status post percutaneous intervention and stent placement, atrial fibrillation, for which she was on Coumadin in the past and pancreatic cancer who approximately 1 month ago was taken to [facility] for a urinary tract infection and had a large right middle cerebral artery stroke there, and then was transferred to [facility] where she improved, and then to a fci where she started to deteriorate. She was brought into the [facility] emergency room for a decline in cognitive and motor function on 02/13/2018 and has since worsened more. 2. She was sleeping when I went to see her. She could be easily aroused. When aroused she stays awake briefly. She however is unresponsive. She is non- verbal. She is unable to follow any commands. She makes consistent eye contact on the right side only. 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 Her PEG was placed today. 3. On neurological examination, at this time, she can be aroused but is aphasic and mute. She is unable to follow simple commands. She is unable to cooperate for further mental status testing. She has a left visual field cut, has a left greater than right VII central facial paresis, left upper extremity plegia, minimal left lower extremity movements, severe right upper extremity and right lower extremity weakness, pathologically brisk deep tendon reflexes, which are brisker on the left than on the right, and extensor plantar responses bilaterally. 4. The CT scan of the brain without contrast performed at [facility] on 02/13/2018 reveals a complete right middle cerebral artery territory infarct and in addition an infarct involving the right occipital area, which may be old. In addition, there is questionable brainstem pathology seen in the right dayana and midbrain. 5. As per Dr. Tarango the CT done on 02/16/18 reveals no acute pathology involving the left brain. Only reveals the old right brain strokes. 6. Laboratory data obtained thus far revealed that she is significantly anemic with a hemoglobin of 10.2 grams. The chemistry panel reveals a BUN elevated at 44 with a creatinine of 2.3. Her blood glucose elevated to 238, AST elevated to 86, alkaline phosphatase is elevated to 355, albumin low at 1.9, TSH is normal at 2.59. The urinalysis reveals 2+ leukocyte esterase, 2-4 RBCs and 5- 10 WBCs per high power field. 7. The EEG revealed right greater than left hemispheric dysfunction, focal right [id number] dysfunction, and bilateral frontotemporal polymorphic delta activity most probably due to a combination of the bilateral cerebral dysfunction and possibly an ongoing encephalopathic process. 8. The patient's history and neurological examination are most compatible with possible bilateral cerebral infarcts. The right brain infarct that occurred approximately 1 month ago is well visualized on the CT scan of the brain. There is a possibility that a left infarct is not visible on the CT, a less likely etiology would be an ictal phenomenon causing this kind of bilateral picture. Recommendations 1. Continue present management. 2. Physical, occupational and speech and language therapy. 3. Can restart anticoagulation from neurologic point of view. 4. Observe closely. Riki Jacobs M.D., M.S.P.H. RIKI JACOBS Feb 20, 2018 19:57
[2018-02-20 20:00] VITALS: BP 95/52
[2018-02-20] MEDS: Atorvastatin 20mg tab NG SCH (20:44)
--- NOTE | 2018-02-20 23:03 | General Progress Note ---
Assessment/Plan Status: stable Assessment/Plan 72 y/o female with h/o recent R CVA s/p L hemiparesis presented from [facility] for increased lethargy. #Toxic metabolic encephalopathy #R CVA in mid-December 2017 at [facility] SM s/p L hemiparesis and L side neglect #A. fib (on coumadin) - restarted coumadin- follow INR #CKD #Anemia #Hypothyroidism #Metastatic pancreatic CA (dx 2007, treated w/ neoadjuvant chemo) s/p pyloric sparing Whipple resection in 2009 at [facility] with recurrence in 2016 s/p chemotherapy) #T2DM #HTN #HLD #h/o heart block s/p PPM (Medtronic placed in 2012) #h/o renal artery stenosis s/p stent 2015 #h/o CAD s/p PCI in 2009 Plan: - Neurology consulted, appreciate recs - Cardiology consulted for PPM eval if MRI safe, appreciate recs - GI consulted for dysphagia, s/p PEG placement, appreciate recs and assistance - F/u ECHO - F/u carotid U/S - Venous duplex BLE negative for DVT - F/u urine cx - Check vitamin B12, folate, vitamin D, TSH, A1c, lipid panel - EKG showing A. 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 Need INR to be < 1.3 prior to PEG - PT/OT - ST eval -- failed swallow study x 3 - PEG tube placed- feeds started - IVF - Continue home meds - SSi - Avoid nephrotoxins - Cr stable at 2 - no chemotherapy for pancreatic CA per family due to multiple comorbidities and frailty - avoid mind-altering meds at this time Son: Karanfu [phone] - 2002 DVT ppx: SCDs, enoxaparin Code Status: Full Hospital Classification Declaration: Based on this initial evaluation, and depending on the patient's clinical course, I anticipate that this patient will require hospitalization for 3-4 days for AMS and close respiratory/hemodynamic monitoring. Disposition: Once the patient is stable to leave the hospital, I anticipate the patient will likely be discharged to the following environment: [facility] I spent 45 minutes on this patient's case, and 24 minutes were dedicated to counseling and/or care coordination. Discussed with patient/family, nursing staff, SW/CM, neurologist, GI, and cardiology regarding clinical status, treatment course, and disposition planning. Subjective Date patient seen: Feb 20, 2018 Time patient seen: 14:55 ROS Limited/Unobtainable: Yes Allergies: Coded Allergies: No Known Allergies (Unverified , 02/13/18) All Systems: reviewed and negative except above Subjective Events of overnight noted Chart reviewed Patient somnolent Unable to give history Objective Last 24 Hour Vital Signs Date Time Temp Pulse Resp B/P (MAP) Pulse Ox O2 Delivery O2 Flow Rate FiO2 02/20/18 22:00 107/57 02/20/18 22:00 107/57 02/20/18 21:00 Nasal Cannula 2.0 02/20/18 20:50 82 95/52 02/20/18 20:00 98.2 94 21 95/52 (66) 100 98.2 02/20/18 20:00 82 24 99 Nasal Cannula 2.0 28 02/20/18 19:51 Nasal Cannula 2.0 28 02/20/18 19:51 98 Nasal Cannula 2.0 28 02/20/18 19:50 79 24 98 Nasal Cannula 2.0 28 02/20/18 19:50 28 02/20/18 16:04 98.0 96 20 121/93 (102) 100 98.0 02/20/18 15:48 28 02/20/18 15:48 82 22 99 Nasal Cannula 2.0 28 02/20/18 15:41 84 22 99 Nasal Cannula 2.0 28 02/20/18 13:54 129/88 02/20/18 13:53 129/88 02/20/18 11:37 97.7 83 20 129/88 (102) 100 97.7 02/20/18 11:35 91 24 99 Nasal Cannula 2.0 28 02/20/18 11:35 28 02/20/18 11:25 95 24 98 Nasal Cannula 2.0 28 02/20/18 09:00 Nasal Cannula 2.0 02/20/18 08:37 96 112/61 02/20/18 08:37 96 112/61 02/20/18 08:31 98.2 96 20 112/61 (78) 100 98.2 02/20/18 07:56 71 24 99 Nasal Cannula 2.0 28 02/20/18 07:56 36 02/20/18 07:49 99 Nasal Cannula 4.0 36 02/20/18 07:49 77 24 99 Nasal Cannula 4.0 36 02/20/18 07:49 Nasal Cannula 4.0 36 02/20/18 05:59 108/50 02/20/18 05:59 108/50 02/20/18 04:00 99.1 56 24 108/50 (69) 100 99.1 02/20/18 03:47 96 24 100 Nasal Cannula 4.0 36 02/20/18 03:41 36 02/20/18 03:40 93 26 99 Nasal Cannula 4.0 36 02/20/18 00:00 98.2 94 20 92/59 (70) 100 98.2 02/19/18 23:42 70 24 100 Nasal Cannula 4.0 36 02/19/18 23:34 21 02/19/18 23:33 94 24 99 Nasal Cannula 4.0 36 Intake and Output 02/19/18 02/20/18 19:00 07:00 Intake Total 270 ml 215 ml Output Total 650 ml 300 ml Balance -380 ml -85 ml IV Total 250 ml Tube Feeding 20 ml 215 ml Output Urine Total 650 ml 300 ml # Bowel Movements 2 1 Laboratory Tests 02/20/18 04:50: White Blood Count 10.8, Red Blood Count 3.60L, Hemoglobin 10.3L, Hematocrit 32.7L, Mean Corpuscular Volume 91, Mean Corpuscular Hemoglobin 28.5, Mean Corpuscular Hemoglobin Concent 31.4L, Red Cell Distribution Width 15.9H, Platelet Count 176, Mean Platelet Volume 7.4, Neutrophils (%) (Auto) 83.9H, Lymphocytes (%) (Auto) 7.7L, Monocytes (%) (Auto) 7.8, Eosinophils (%) (Auto) 0.1, Basophils (%) (Auto) 0.5, Sodium Level 144, Potassium Level 3.7, Chloride Level 110H, Carbon Dioxide Level 25, Anion Gap 9, Blood Urea Nitrogen 43H, Creatinine 2.4H, Estimat Glomerular Filtration Rate 24.2, Glucose Level 181H, Calcium Level 8.3L, Phosphorus Level 3.8, Magnesium Level 1.9, Total Bilirubin 0.8, Aspartate Amino Transf (AST/SGOT) 41H, Alanine Aminotransferase (ALT/SGPT) 28, Alkaline Phosphatase 217H, C-Reactive Protein, Quantitative 21.7H, Pro-B- Type Natriuretic Peptide 13840I, Total Protein 6.4, Albumin 1.7L, Globulin 4.7, Albumin/Globulin Ratio 0.4L 02/20/18 16:00: Urine Color Yellow, Urine Appearance Clear, Urine pH 5, Urine Specific [place] 1.015, Urine Protein 2+H, Urine Glucose (UA) Negative, Urine Ketones Negative, Urine Occult Blood 1+H, Urine Nitrite Negative, Urine Bilirubin Negative, Urine Urobilinogen 1H, Urine Leukocyte Esterase 3+H, Urine RBC 2-4H, Urine WBC 5-10H, Urine Squamous Epithelial Cells Few, Urine Bacteria ModerateH Height (Feet): 6 Height (Inches): 6.00 Weight (Pounds): 152 General Appearance: no apparent distress, lethargic, confused EENT: PERRL/EOMI, TMs normal Neck: non-tender Cardiovascular: normal peripheral pulses, normal rate, regular rhythm Respiratory/Chest: chest wall non-tender, lungs clear Abdomen: non tender, soft, other - + PEG, nontender Pelvis: normal external exam, normal rectal exam Extremities: non-tender Edema: no edema noted Arm (L), no edema noted Arm (R) Edema: trace edema Neurologic: disoriented Skin: normal pigmentation Lymphatic: normal anterior cervical (L), normal anterior cervical (R) Saeid Barbosa M.D. Feb 20, 2018 23:03
[2018-02-21] VITALS: BP 118/63
[2018-02-21] MEDS: Albuterol ud Inhalation HHN SCH ×4 (03:38→15:42)
[2018-02-21 04:47] VITALS: BP 119/54
[2018-02-21 06:03] LABS: BASOPHILS % (AUTO) 0.7 % (0.0-2.0); EOSINOPHILS % (AUTO) 0.4 % (0.0-3.0); HEMATOCRIT 26.6 % (37.0-47.0); HEMOGLOBIN 8.6 G/DL (12.0-16.0); LYMPHOCYTES % (AUTO) 6.4 % (20.0-45.0); MEAN CORPUSCULAR VOLUME 91 FL (80-99); MONOCYTES % (AUTO) 9.1 % (1.0-10.0); NEUTROPHILS % (AUTO) 83.5 % (45.0-75.0); PLATELET COUNT 159 K/UL (150-450); RED BLOOD COUNT 2.93 M/UL (4.20-5.40); RED CELL DISTRIBUTION WIDTH 16.2 % (11.6-14.8)
[2018-02-21] MEDS: HydrALAZINE 25mg tab NG SCH ×2 (06:25→14:00)
[2018-02-21] MEDS: NovoLOG Insulin Flexpen SUBQ SCH ×2 (06:29→11:40)
[2018-02-21] MEDS: Levemir Flexpen SUBQ SCH (06:30)
[2018-02-21 06:50] LABS: ALANINE AMINOTRANSFERASE 24 U/L (12-78); ALBUMIN 1.7 G/DL (3.4-5.0); ALBUMIN/GLOBULIN RATIO 0.4 (1.0-2.7); ALKALINE PHOSPHATASE 194 U/L (46-116); ANION GAP 14 mmol/L (5-15); ASPARTATE AMINO TRANSFERASE 49 U/L (15-37); BILIRUBIN,TOTAL 0.6 MG/DL (0.2-1.0); BLOOD UREA NITROGEN 53 mg/dL (7-18); CALCIUM 8.4 MG/DL (8.5-10.1); CARBON DIOXIDE 22 MMOL/L (21-32); CHLORIDE 110 MMOL/L (98-107); CREATININE 2.8 MG/DL (0.55-1.30); PHOSPHORUS 4.1 MG/DL (2.5-4.9); POTASSIUM 3.7 MMOL/L (3.5-5.1); SODIUM 145 MMOL/L (136-145)
[2018-02-21 08:00] VITALS: BP 96/57
[2018-02-21] MEDS: Carvedilol 25mg Tab NG SCH (09:00)
[2018-02-21] MEDS: Pancrease Cap NG SCH ×2 (09:26→14:17)
[2018-02-21] MEDS: Docusate 100mg/10ml Liq NG SCH ×2 (09:26→14:17)
[2018-02-21] MEDS: Enoxaparin Sodium 300mg/3ml vial SUBQ SCH (09:28)
--- NOTE | 2018-02-21 11:12 | Cardiology Report ---
APPROVED REPORT EXAM: Two-dimensional and M-mode echocardiogram with Doppler and color Doppler. M-Mode DIMENSIONS IVSd1.4 (0.7-1.1cm)Left Atrium (MM)4.5 (1.6-4.0cm) LVDd4.6 (3.5-5.6cm)Aortic Root2.7 (2.0-3.7cm) PWd1.4 (0.7-1.1cm)Aortic Cusp Exc.1.4 (1.5-2.0cm) IVSs2.0 cm LVDs3.0 (2.5-4.0cm) PWs1.9 cm Technically difficult study due to pts position . Normal left ventricular chamber size, systolic function and wall motion to extent visualized. Left ventricular ejection fraction estimated to be 55-60% . mild left ventricular hypertrophy by 2-D. trace posterior pericardial effusion. Mild bi-atrial enlargments . Right ventricular chamber sizes is within normal limits . Focal aortic valve sclerosis with reduced cusp excursion. Thickened mitral valve leaflets with normal excursion. Mitral annulus and aortic root calcification. Pulmonic valve not well visualized. Normal tricuspid valve structure. IVC at normal size without physiological collapse . Pacemaker wire present in the right side chambers. A color flow and spectral Doppler study was performed and revealed: Trace aortic regurgitation. Peak aortic valve gradient of 10 mm Hg and a mean of 5 mmHg. Moderate mitral regurgitation. left ventricular diastolic function can not determined due to arrhythmia . Moderate tricuspid regurgitation. Tricuspid systolic velocities suggests peak right ventricular systolic pressure of 38mmHg, consistent with mild pulmonary hypertension .
--- NOTE | 2018-02-21 11:39 | General Progress Note ---
Assessment/Plan Assessment/Plan encephalopathy due to [facility] -dc Remeron -start Zyprexa 2.5mg qhs Subjective Date patient seen: Feb 21, 2018 Neurologic/Psychiatric: Reports: anxiety Allergies: Coded Allergies: No Known Allergies (Unverified , 02/13/18) Subjective the pt has waxing and waning of consciousness sister in room pt alert and oriented at baseline Objective Last 24 Hour Vital Signs Date Time Temp Pulse Resp B/P (MAP) Pulse Ox O2 Delivery O2 Flow Rate FiO2 02/21/18 11:20 87 22 100 Nasal Cannula 2.0 28 02/21/18 09:00 Room Air 02/21/18 09:00 84 119/54 02/21/18 09:00 84 119/54 02/21/18 08:00 97.9 95 18 96/57 (70) 100 97.9 02/21/18 07:40 28 02/21/18 07:40 84 24 99 Nasal Cannula 2.0 28 02/21/18 07:26 Nasal Cannula 2.0 02/21/18 07:26 99 Nasal Cannula 2.0 02/21/18 07:25 85 24 99 Nasal Cannula 2.0 02/21/18 06:25 119/54 02/21/18 06:24 119/54 02/21/18 04:47 99.5 92 19 119/54 (75) 93 99.5 02/21/18 03:48 92 20 98 Nasal Cannula 2.0 02/21/18 03:38 94 26 96 Nasal Cannula 2.0 02/21/18 03:38 28 02/21/18 00:00 98.1 89 22 118/63 (81) 100 98.1 02/20/18 23:15 88 24 98 Nasal Cannula 2.0 28 02/20/18 23:05 91 26 95 Nasal Cannula 2.0 28 02/20/18 23:05 28 02/20/18 22:00 107/57 02/20/18 22:00 107/57 02/20/18 21:00 Nasal Cannula 2.0 02/20/18 20:50 82 95/52 02/20/18 20:00 98.2 94 21 95/52 (66) 100 98.2 02/20/18 20:00 82 24 99 Nasal Cannula 2.0 02/20/18 19:51 Nasal Cannula 2.0 28 8/21/18 19:51 98 Nasal Cannula 2.0 02/20/18 19:50 79 24 98 Nasal Cannula 2.0 02/20/18 19:50 28 02/20/18 16:04 98.0 96 20 121/93 (102) 100 98.0 02/20/18 15:48 28 02/20/18 15:48 82 22 99 Nasal Cannula 2.0 02/20/18 15:41 84 22 99 Nasal Cannula 2.0 02/20/18 13:54 129/88 02/20/18 13:53 129/88 Intake and Output 02/20/18 02/21/18 19:00 07:00 Intake Total 410 ml 360 ml Output Total 600 ml 250 ml Balance -190 ml 110 ml Intake Free Water 190 ml 100 ml Tube Feeding 220 ml 260 ml Output Urine Total 600 ml 250 ml Laboratory Tests 02/20/18 16:00: Urine Color Yellow, Urine Appearance Clear, Urine pH 5, Urine Specific [place] 1.015, Urine Protein 2+H, Urine Glucose (UA) Negative, Urine Ketones Negative, Urine Occult Blood 1+H, Urine Nitrite Negative, Urine Bilirubin Negative, Urine Urobilinogen 1H, Urine Leukocyte Esterase 3+H, Urine RBC 2-4H, Urine WBC 5-10H, Urine Squamous Epithelial Cells Few, Urine Bacteria ModerateH 02/21/18 05:15: White Blood Count 9.0, Red Blood Count 2.93L, Hemoglobin 8.6L, Hematocrit 26.6L , Mean Corpuscular Volume 91, Mean Corpuscular Hemoglobin 29.5, Mean Corpuscular Hemoglobin Concent 32.5, Red Cell Distribution Width 16.2H, Platelet Count 159, Mean Platelet Volume 6.6, Neutrophils (%) (Auto) 83.5H, Lymphocytes (%) (Auto) 6.4L, Monocytes (%) (Auto) 9.1, Eosinophils (%) (Auto) 0.4, Basophils (%) (Auto) 0.7, Sodium Level 145, Potassium Level 3.7, Chloride Level 110H, Carbon Dioxide Level 22, Anion Gap 14, Blood Urea Nitrogen 53H, Creatinine 2.8H, Estimat Glomerular Filtration Rate 20.2, Glucose Level 213H, Calcium Level 8.4L, Phosphorus Level 4.1, Magnesium Level 2.0, Total Bilirubin 0.6, Aspartate Amino Transf (AST/SGOT) 49H, Alanine Aminotransferase (ALT/SGPT) 24, Alkaline Phosphatase 194H, Pro-B-Type Natriuretic Peptide 9632H, Total Protein 6.5, Albumin 1.7L, Globulin 4.8, Albumin/Globulin Ratio 0.4L Height (Feet): 6 Height (Inches): 6.00 Weight (Pounds): 160 General Appearance: no apparent distress, lethargic, confused Wai Lopez MD Feb 21, 2018 11:39
[2018-02-21 12:00] VITALS: BP 126/65
--- NOTE | 2018-02-21 12:16 | Nephrology Progress Note ---
Assessment/Plan Problem List: (1) Acute renal failure (2) Diabetic nephropathy (3) DM (diabetes mellitus) (4) Altered level of consciousness (5) Dehydration (6) Anemia (7) Acute decompensated heart failure (8) CVA (cerebral vascular accident) Assessment: ? new affecting right (9) Pacemaker Assessment Possible new CVA affecting right Renal Failure, Likely Chronic due to DM / HTN , has 3+ Proteinuria Cr lower CHF decompensated Encephalopathy CVA with left Larry Anemia HypoThyroid Metastatic pancreatic Ca , s/p treatment with Chemo and Whipple resection at [facility] HTN DMII CAD HLD Plan Adjust BP meds- Head CT no contrast evidence of UTI: One dose Levaq and vanco Albumin bolus No IV check CXR : Clear DC mind altering meds- Urine Studies- Mueller- Adjust BP meds- Avoid Nephrotoxics Monitor renal parameters Subjective ROS Limited/Unobtainable: No Constitutional: Reports: malaise Objective Objective Last 24 Hour Vital Signs Date Time Temp Pulse Resp B/P (MAP) Pulse Ox O2 Delivery O2 Flow Rate FiO2 02/21/18 11:20 87 22 100 Nasal Cannula 2.0 02/21/18 09:00 Room Air 02/21/18 09:00 84 119/54 02/21/18 09:00 84 119/54 02/21/18 08:00 97.9 95 18 96/57 (70) 100 97.9 02/21/18 07:40 02/21/18 07:40 84 24 99 Nasal Cannula 2.0 02/21/18 07:26 Nasal Cannula 2.0 02/21/18 07:26 99 Nasal Cannula 2.0 02/21/18 07:25 85 24 99 Nasal Cannula 2.0 02/21/18 06:25 119/54 02/21/18 06:24 119/54 02/21/18 04:47 99.5 92 19 119/54 (75) 93 99.5 02/21/18 03:48 92 20 98 Nasal Cannula 2.0 02/21/18 03:38 94 26 96 Nasal Cannula 2.0 28 02/21/18 03:38 28 02/21/18 00:00 98.1 89 22 118/63 (81) 100 98.1 02/20/18 23:15 88 24 98 Nasal Cannula 2.0 02/20/18 23:05 91 26 95 Nasal Cannula 2.0 28 02/20/18 23:05 28 02/20/18 22:00 107/57 02/20/18 22:00 107/57 02/20/18 21:00 Nasal Cannula 2.0 02/20/18 20:50 82 95/52 02/20/18 20:00 98.2 94 21 95/52 (66) 100 98.2 02/20/18 20:00 82 24 99 Nasal Cannula 2.0 28 02/20/18 19:51 Nasal Cannula 2.0 28 02/20/18 19:51 98 Nasal Cannula 2.0 28 02/20/18 19:50 79 24 98 Nasal Cannula 2.0 28 02/20/18 19:50 28 02/20/18 16:04 98.0 96 20 121/93 (102) 100 98.0 02/20/18 15:48 28 02/20/18 15:48 82 22 99 Nasal Cannula 2.0 28 02/20/18 15:41 84 22 99 Nasal Cannula 2.0 28 02/20/18 13:54 129/88 02/20/18 13:53 129/88 Intake and Output 02/20/18 02/21/18 19:00 07:00 Intake Total 410 ml 360 ml Output Total 600 ml 250 ml Balance -190 ml 110 ml Intake Free Water 190 ml 100 ml Tube Feeding 220 ml 260 ml Output Urine Total 600 ml 250 ml Laboratory Tests 02/20/18 16:00: Urine Color Yellow, Urine Appearance Clear, Urine pH 5, Urine Specific [place] 1.015, Urine Protein 2+H, Urine Glucose (UA) Negative, Urine Ketones Negative, Urine Occult Blood 1+H, Urine Nitrite Negative, Urine Bilirubin Negative, Urine Urobilinogen 1H, Urine Leukocyte Esterase 3+H, Urine RBC 2-4H, Urine WBC 5-10H, Urine Squamous Epithelial Cells Few, Urine Bacteria ModerateH 02/21/18 05:15: White Blood Count 9.0, Red Blood Count 2.93L, Hemoglobin 8.6L, Hematocrit 26.6L , Mean Corpuscular Volume 91, Mean Corpuscular Hemoglobin 29.5, Mean Corpuscular Hemoglobin Concent 32.5, Red Cell Distribution Width 16.2H, Platelet Count 159, Mean Platelet Volume 6.6, Neutrophils (%) (Auto) 83.5H, Lymphocytes (%) (Auto) 6.4L, Monocytes (%) (Auto) 9.1, Eosinophils (%) (Auto) 0.4, Basophils (%) (Auto) 0.7, Sodium Level 145, Potassium Level 3.7, Chloride Level 110H, Carbon Dioxide Level 22, Anion Gap 14, Blood Urea Nitrogen 53H, Creatinine 2.8H, Estimat Glomerular Filtration Rate 20.2, Glucose Level 213H, Calcium Level 8.4L, Phosphorus Level 4.1, Magnesium Level 2.0, Total Bilirubin 0.6, Aspartate Amino Transf (AST/SGOT) 49H, Alanine Aminotransferase (ALT/SGPT) 24, Alkaline Phosphatase 194H, Pro-B-Type Natriuretic Peptide 9632H, Total Protein 6.5, Albumin 1.7L, Globulin 4.8, Albumin/Globulin Ratio 0.4L Height (Feet): 6 Height (Inches): 6.00 Weight (Pounds): 160 Cardiovascular: normal rate Respiratory/Chest: lungs clear Abdomen: distended, other - PEG Neurologic: other - bilateral weakness Toney Meyer MD Feb 21, 2018 12:16
--- NOTE | 2018-02-21 12:30 | GI Progress Note ---
Assessment/Plan Problems: (1) Diabetic nephropathy ICD Codes: E11.21 - Type 2 diabetes mellitus with diabetic nephropathy SNOMED: 79198499, 730236201 (2) Encounter for PEG (percutaneous endoscopic gastrostomy) ICD Codes: Z43.1 - Encounter for attention to gastrostomy SNOMED: 514752864, 578518219 (3) Severe malnutrition ICD Codes: E43 - Unspecified severe protein-calorie malnutrition SNOMED: 30989663 (4) Anemia ICD Codes: D64.9 - Anemia, unspecified SNOMED: 050416622 (5) Dehydration ICD Codes: E86.0 - Dehydration SNOMED: 32631015 (6) Failure to thrive SNOMED: 73434204 (7) CVA (cerebral vascular accident) ICD Codes: I63.9 - Cerebral infarction, unspecified SNOMED: 659896430 Qualifiers: Qualified Codes: I63.511 - Cerebral infarction due to unspecified occlusion or stenosis of right middle cerebral artery (8) DM (diabetes mellitus) ICD Codes: E11.9 - Type 2 diabetes mellitus without complications SNOMED: 41135126 Status: unchanged Status Narrative Discussed with Dr. May. Assessment/Plan SUMMARY FINDINGS: 1. Gastritis. 2. Status post successful PEG placement. GTFs, reports of high residuals >> feedings on hold, restart low RECOMMENDATIONS: GTFs to goal no reglan given acute ARF ppi GT site care prn transfusions fu labs dc planning The patient was seen and examined at bedside and all new and available data was reviewed in the patients chart. I agree with the above findings, impression and plan. (Patient seen earlier today. Signature stamp does not reflect patient encounter time.). - Papa May MD Subjective Subjective limited Objective Last 24 Hour Vital Signs Date Time Temp Pulse Resp B/P (MAP) Pulse Ox O2 Delivery O2 Flow Rate FiO2 02/21/18 11:20 87 22 100 Nasal Cannula 2.0 28 02/21/18 09:00 Room Air 02/21/18 09:00 84 119/54 02/21/18 09:00 84 119/54 02/21/18 08:00 97.9 95 18 96/57 (70) 100 97.9 02/21/18 07:40 28 02/21/18 07:40 84 24 99 Nasal Cannula 2.0 28 02/21/18 07:26 Nasal Cannula 2.0 28 02/21/18 07:26 99 Nasal Cannula 2.0 28 02/21/18 07:25 85 24 99 Nasal Cannula 2.0 28 02/21/18 06:25 119/54 02/21/18 06:24 119/54 02/21/18 04:47 99.5 92 19 119/54 (75) 93 99.5 02/21/18 03:48 92 20 98 Nasal Cannula 2.0 28 02/21/18 03:38 94 26 96 Nasal Cannula 2.0 28 02/21/18 03:38 28 02/21/18 00:00 98.1 89 22 118/63 (81) 100 98.1 02/20/18 23:15 88 24 98 Nasal Cannula 2.0 28 02/20/18 23:05 91 26 95 Nasal Cannula 2.0 28 02/20/18 23:05 28 02/20/18 22:00 107/57 02/20/18 22:00 107/57 02/20/18 21:00 Nasal Cannula 2.0 02/20/18 20:50 82 95/52 02/20/18 20:00 98.2 94 21 95/52 (66) 100 98.2 02/20/18 20:00 82 24 99 Nasal Cannula 2.0 28 02/20/18 19:51 Nasal Cannula 2.0 28 02/20/18 19:51 98 Nasal Cannula 2.0 28 02/20/18 19:50 79 24 98 Nasal Cannula 2.0 28 02/20/18 19:50 28 02/20/18 16:04 98.0 96 20 121/93 (102) 100 98.0 02/20/18 15:48 28 02/20/18 15:48 82 22 99 Nasal Cannula 2.0 28 02/20/18 15:41 84 22 99 Nasal Cannula 2.0 28 02/20/18 13:54 129/88 02/20/18 13:53 129/88 Intake and Output 02/20/18 02/21/18 19:00 07:00 Intake Total 410 ml 360 ml Output Total 600 ml 250 ml Balance -190 ml 110 ml Intake Free Water 190 ml 100 ml Tube Feeding 220 ml 260 ml Output Urine Total 600 ml 250 ml Laboratory Tests Test 02/20/18 16:00 02/21/18 05:15 Urine Color Yellow Urine Appearance Clear Urine pH 5 (4.5-8.0) Urine Specific [place] 1.015 (1.005-1.035) Urine Protein 2+ (NEGATIVE) H Urine Glucose (UA) Negative (NEGATIVE) Urine Ketones Negative (NEGATIVE) Urine Occult Blood 1+ (NEGATIVE) H Urine Nitrite Negative (NEGATIVE) Urine Bilirubin Negative (NEGATIVE) Urine Urobilinogen 1 MG/DL (0.0-1.0) H Urine Leukocyte Esterase 3+ (NEGATIVE) H Urine RBC 2-4 /HPF (0 - 2) H Urine WBC 5-10 /HPF (0 - 2) H Urine Squamous Epithelial Cells Few /LPF (NONE/OCC) Urine Bacteria Moderate /HPF (NONE) H White Blood Count 9.0 K/UL (4.8-10.8) Red Blood Count 2.93 M/UL (4.20-5.40) L Hemoglobin 8.6 G/DL (12.0-16.0) L Hematocrit 26.6 % (37.0-47.0) L Mean Corpuscular Volume 91 FL (80-99) Mean Corpuscular Hemoglobin 29.5 PG (27.0-31.0) Mean Corpuscular Hemoglobin Concent 32.5 G/DL (32.0-36.0) Red Cell Distribution Width 16.2 % (11.6-14.8) H Platelet Count 159 K/UL (150-450) Mean Platelet Volume 6.6 FL (6.5-10.1) Neutrophils (%) (Auto) 83.5 % (45.0-75.0) H Lymphocytes (%) (Auto) 6.4 % (20.0-45.0) L Monocytes (%) (Auto) 9.1 % (1.0-10.0) Eosinophils (%) (Auto) 0.4 % (0.0-3.0) Basophils (%) (Auto) 0.7 % (0.0-2.0) Sodium Level 145 MMOL/L (136-145) Potassium Level 3.7 MMOL/L (3.5-5.1) Chloride Level 110 MMOL/L (98-107) H Carbon Dioxide Level 22 MMOL/L (21-32) Anion Gap 14 mmol/L (5-15) Blood Urea Nitrogen 53 mg/dL (7-18) H Creatinine 2.8 MG/DL (0.55-1.30) H Estimat Glomerular Filtration Rate 20.2 mL/min (>60) Glucose Level 213 MG/DL (74-106) H Calcium Level 8.4 MG/DL (8.5-10.1) L Phosphorus Level 4.1 MG/DL (2.5-4.9) Magnesium Level 2.0 MG/DL (1.8-2.4) Total Bilirubin 0.6 MG/DL (0.2-1.0) Aspartate Amino Transf (AST/SGOT) 49 U/L (15-37) H Alanine Aminotransferase (ALT/SGPT) 24 U/L (12-78) Alkaline Phosphatase 194 U/L (46-116) H Pro-B-Type Natriuretic Peptide 9632 pg/mL (0-125) H Total Protein 6.5 G/DL (6.4-8.2) Albumin 1.7 G/DL (3.4-5.0) L Globulin 4.8 g/dL Albumin/Globulin Ratio 0.4 (1.0-2.7) L Microbiology Date/Time Source Procedure Growth Status 02/20/18 16:00 Urine,Clean Catch Urine Culture - Preliminary Resulted Height (Feet): 6 Height (Inches): 6.00 Weight (Pounds): 160 General Appearance: alert Cardiovascular: normal rate Respiratory/Chest: normal breath sounds, no respiratory distress Abdominal Exam: normal bowel sounds, non tender, soft, GT site - c/d/i Edil Dawn NP Feb 21, 2018 12:30
[2018-02-21] MEDS ORDERED: Vancomycin 1250mg/D5W 250ml 250 ML IVPB SCH (14:30)
--- NOTE | 2018-02-21 14:54 | Diagnostic Imaging Report ---
Indications: Altered mental status Technique: Spiral acquisitions obtained through the brain. Angled axial and coronal 5 x 5 mm slices were reconstructed. Total dose length product 1358.49 mGycm. CTDI vol(s) 70.38 mGy. Dose reduction achieved using automated exposure control Comparison: 02/16/2018 Findings: Interim development of cytotoxic edema involving most of the left parietal lobe, and significant portions of the left frontal and temporal lobes. This results in considerable mass effect, with obliteration of the ipsilateral sulci, marked attenuation of the lateral ventricles. The basilar cisterns remain open but attenuated. This infarct is slightly less extensive than the contralateral infarct, sparing more of the parasagittal parietal lobe, the inferior frontal lobe, and the basal ganglia than the previous right-sided infarct. There is no evidence of associated hemorrhage As previously, there is again demonstrated massive area of cytotoxic edema involving the right middle cerebral artery distribution. Some gyriform high attenuation in the right posterior temporal lobe appears more striking than on the prior exam and likely reflects some focal petechial hemorrhage. Other strips of normal parenchymal attenuation are again demonstrated and unchanged. Of note, the right-sided infarct is more extensive than seen previously, as there is now involvement of the posterior parasagittal parietal lobe and increased involvement of the right temporal lobe. There are also areas of the right parasagittal frontal lobe which now appear infarcted that were spared previously. Other than the finding described above, no other evidence of acute hemorrhage is demonstrated. No extra-axial hemorrhage demonstrated. The visualized orbits and sinuses are unremarkable. The mastoids are clear. Impression: Since 02/17/2008, interim development of extensive cytotoxic edema of the left temporal, parietal, and frontal lobes, consistent with a massive middle cerebral artery distribution infarct. This results in mass effect, as described above. Since previous exam, interim extension of previously demonstrated large subacute middle cerebral artery distribution infarct.. Findings suspicious for petechial gyral hemorrhage on the right, previously described, more striking currently. No evidence of acute hemorrhage on the left. Critical value findings phoned to Dr. Jacobs at the time of interpretation The CT scanner at [facility] is accredited by the [employer] [employer] and the scans are performed using protocols designed to limit radiation exposure to as low as reasonably achievable to attain images of sufficient resolution adequate for diagnostic evaluation.
--- NOTE | 2018-02-21 15:02 | Discharge Summary ---
Discharge Summary Hospital Course Date of Admission Feb 13, 2018 at 17:35 Date of Discharge 02/21/2018 Admitting Diagnosis FTT Reason for Hospitalization: Acute encephalopathy HPI Janee Mcpherson is a 72 year old female who was admitted on Feb 13, 2018 at 17:35 for Failure To Thrive and acute encephalopathy She has a history recent R CVA in mid-December 2017 at [facility], L hemiparesis, metastatic pancreatic CA (dx 2007, treated w/ neoadjuvant chemo) s/ p pyloric sparing Whipple resection in 2009 at [facility] with recurrence in 2016 s/p chemotherapy), T2DM, HTN, HLD, heart block s/p PPM, renal artery stenosis s/p stent 2015, CAD s/p PCI in 2009, A. fibb (on coumadin), CKD, and anemia presented from [facility] for increased lethargy for 1 day. Per son, patient had presented to [facility] 1 month ago for a UTI and suffered from a large CVA 1-2 days after admission. Patient was transferred to [facility] [place] for acute rehab for 2 weeks and then was transferred to [facility] for further rehab last week. Per son, patient was talking, eating, and moving her RUE and RLE at [facility] but has been declining ever since her admission at [facility]. 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 In the ER, CT head was done, which showed large right MCA distribution subacute infarct with resultant mass effect. No e/o acute intracranial hemorrhage. Low-attenuation in the right side of the dayana and midbrain. Suspected artifiactual due to beam hardening artifact but lacunar infarct, old if real, not excludable. Upon review of records, recent CT head was done at [facility] on 01/30/18, which showed right posterior frontal parietal and temporal occipital chronic infarction with no hemorrhage. On admission patient remained lethargic and uncooperative but appeared to be in no acute distress. Consultations Neurology GI Nephrology Cardiology Procedures Endoscopy for PEG placement Hospital Course Patient admitted to the hospital for close monitoring. Neurology consulted. Cardiology consulted for PPM eval if MRI safe, appreciate recs. GI consulted for dysphagia, s/p PEG placement. An EEG was performed which was prelim abnormal, showing generalized slowing with R > L --> f/u final read. She wasunable to perform MRI as pacemaker is [employer] MRI conditional and promotional representative has to turn it off first. She had a STAT CT head w/o IV contrast -- which showed no acute pathology or changes from prior study. Deemed acceptable to restart anticoagulation per neurology - - started lovenox 70mg SC qd with a planned bridge to warfarin With regard to her ST evaluation -- she failed swallow study x 3. A PEG tube placed and feeds started She had some ANNETTA on CKD and on discharge her creatinine stable at 2 No chemotherapy for pancreatic CA per family due to multiple comorbidities and frailty On day of discharge she was stable for transfer I spent 40 minutes on day of discharge conducting and coordinating discharge activities for this patient Discharge Medications Continued Medications: Acetaminophen* (Acetaminophen 325MG Tablet*) 325 Mg Tablet 650 MG ORAL Q6H PRN for Mild Pain (Pain Scale 1-3), TAB (This prescription has been renewed) Amlodipine Besylate* (Amlodipine Besylate*) 2.5 Mg Tablet 2.5 MG NGT DAILY, TAB (This prescription has been renewed) Atorvastatin (Lipitor) 80 Mg Tablet 20 MG NGT BEDTIME, #30 TAB 0 Refills (This prescription has been renewed) Carvedilol* (Carvedilol*) 25 Mg Tablet 25 MG ORAL BID, TAB (This prescription has been renewed) Docusate Sodium* (Docusate Sodium*) 100 Mg Capsule 100 MG ORAL TWICE A DAY, CAP (This prescription has been renewed) Enoxaparin Sodium (Enoxaparin Sodium) 300 Mg/3 Ml Vial 70 MG SUBQ DAILY, #30 EA 0 Refills (This prescription has been renewed) Insulin Aspart (Novolog) 100 Unit/1 Ml Cartridge 100 UNIT SQ (This prescription has been renewed) Insulin Detemir (Levemir) 100 Unit/1 Ml Vial 7 SUBQ ACBREAKFAST, VIAL (This prescription has been renewed) Isosorbide Dinitrate* (Isordil*) 10 Mg Tablet 10 MG ORAL TID for ANGINA, TAB 0 Refills (This prescription has been renewed) Levofloxacin* (Levaquin*) 250 Mg Tablet 250 MG NGT DAILY for 5 Days, TAB (This prescription has been renewed) Lipase/Protease/Amylase (Sy [place]antes 24,000 Units Capsule) 1 Each Capsule. 1 EACH PO TID for PANCREATIC INSUFFICIENCY , CAP (This prescription has been renewed) Discharge Condition Upon Discharge: stable Discharge Disposition Patient was discharged to SNF/Subacute Facility(03) Discharge Diagnoses: (1) Dehydration (2) Acute renal failure (3) Diabetic nephropathy (4) Acute decompensated heart failure (5) Encounter for PEG (percutaneous endoscopic gastrostomy) (6) Anemia (7) Severe malnutrition (8) Failure to thrive Saeid Barbosa M.D. Feb 21, 2018 15:02
[2018-02-21] MEDS ORDERED: LEVAQUIN250 M1 NGT (15:09)
[2018-02-21] MEDS ORDERED: AMLODIPINE BES2.5 MG NGT (15:11)
[2018-02-21] MEDS ORDERED: LIPITOR80 MG NGT (15:12)
[2018-02-21] MEDS ORDERED: ENOXAPARIN300 MG/3 M SUBQ (15:12)
[2018-02-21] MEDS ORDERED: NOVOLOG100 UNIT/4 SQ (15:14)
[2018-02-21] MEDS ORDERED: LEVEMIR100 UNIT/1 SUBQ (15:15)
[2018-02-21 16:00] VITALS: BP 116/63
--- NOTE | 2018-02-21 16:31 | Cardiology Progress Note ---
Assessment/Plan Assessment/Plan Assessment: Toxic metabolic encephalopathy R CVA in mid-December 2017 at [facility] SM s/p L hemiparesis Atrial fibrillation on Coumadin CKD Anemia of chronic disease Hypothryoid Pancreatic cancer DM HTN HLD CAD s/p PCI 2009 Heart block s/p medtronic PPM renal artery stenosis s/p stent 2015 Plan: Statin Restart coumadin for AFIB Plavix EEG - negative physical therapy Continue BP medications: coreg, amlodipine, hydralazine, imdur Lasix to reduce pulmonary congestion, monitor renal function, urine electrolytes family does not want patient intubated Supportive care Dispo planning Subjective Cardiovascular: Reports: no symptoms Respiratory: Reports: no symptoms Gastrointestinal/Abdominal: Reports: no symptoms Genitourinary: Reports: no symptoms Subjective PEG tube placed, no acute events, vitals stable, awaiting dispo, no distress BNP and creatinine elevated. Objective Last 24 Hour Vital Signs Date Time Temp Pulse Resp B/P (MAP) Pulse Ox O2 Delivery O2 Flow Rate FiO2 02/21/18 16:00 97.7 84 18 116/63 (80) 100 97.7 02/21/18 15:50 88 24 100 Nasal Cannula 2.0 02/21/18 15:50 28 02/21/18 15:42 88 24 100 Nasal Cannula 2.0 02/21/18 14:17 126/65 02/21/18 14:00 126/65 02/21/18 12:00 98.1 87 18 126/65 (85) 100 98.1 02/21/18 11:20 87 22 100 Nasal Cannula 2.0 02/21/18 09:00 Room Air 02/21/18 09:00 84 119/54 02/21/18 09:00 84 119/54 02/21/18 08:00 97.9 95 18 96/57 (70) 100 97.9 02/21/18 07:40 28 02/21/18 07:40 84 24 99 Nasal Cannula 2.0 02/21/18 07:26 Nasal Cannula 2.0 02/21/18 07:26 99 Nasal Cannula 2.0 02/21/18 07:25 85 24 99 Nasal Cannula 2.0 02/21/18 06:25 119/54 02/21/18 06:24 119/54 02/21/18 04:47 99.5 92 19 119/54 (75) 93 99.5 02/21/18 03:48 92 20 98 Nasal Cannula 2.0 28 02/21/18 03:38 94 26 96 Nasal Cannula 2.0 28 02/21/18 03:38 28 02/21/18 00:00 98.1 89 22 118/63 (81) 100 98.1 02/20/18 23:15 88 24 98 Nasal Cannula 2.0 28 02/20/18 23:05 91 26 95 Nasal Cannula 2.0 28 02/20/18 23:05 28 02/20/18 22:00 107/57 02/20/18 22:00 107/57 02/20/18 21:00 Nasal Cannula 2.0 02/20/18 20:50 82 95/52 02/20/18 20:00 98.2 94 21 95/52 (66) 100 98.2 02/20/18 20:00 82 24 99 Nasal Cannula 2.0 28 02/20/18 19:51 Nasal Cannula 2.0 28 02/20/18 19:51 98 Nasal Cannula 2.0 28 02/20/18 19:50 79 24 98 Nasal Cannula 2.0 28 02/20/18 19:50 28 General Appearance: no apparent distress, alert EENT: PERRL/EOMI, normal ENT inspection Neck: non-tender, normal alignment Rhythm: NSR Cardiovascular: normal peripheral pulses, normal rate, regularly irregular Respiratory/Chest: chest wall non-tender, lungs clear, normal breath sounds Abdomen: normal bowel sounds, non tender Extremities: normal range of motion, non-tender Neurologic: starcher and tenter range feeder II-XII grossly normal Intake and Output 02/20/18 02/21/18 19:00 07:00 Intake Total 410 ml 360 ml Output Total 600 ml 250 ml Balance -190 ml 110 ml Intake Free Water 190 ml 100 ml Tube Feeding 220 ml 260 ml Output Urine Total 600 ml 250 ml Laboratory Tests Test 02/21/18 05:15 White Blood Count 9.0 K/UL (4.8-10.8) Red Blood Count 2.93 M/UL (4.20-5.40) L Hemoglobin 8.6 G/DL (12.0-16.0) L Hematocrit 26.6 % (37.0-47.0) L Mean Corpuscular Volume 91 FL (80-99) Mean Corpuscular Hemoglobin 29.5 PG (27.0-31.0) Mean Corpuscular Hemoglobin Concent 32.5 G/DL (32.0-36.0) Red Cell Distribution Width 16.2 % (11.6-14.8) H Platelet Count 159 K/UL (150-450) Mean Platelet Volume 6.6 FL (6.5-10.1) Neutrophils (%) (Auto) 83.5 % (45.0-75.0) H Lymphocytes (%) (Auto) 6.4 % (20.0-45.0) L Monocytes (%) (Auto) 9.1 % (1.0-10.0) Eosinophils (%) (Auto) 0.4 % (0.0-3.0) Basophils (%) (Auto) 0.7 % (0.0-2.0) Sodium Level 145 MMOL/L (136-145) Potassium Level 3.7 MMOL/L (3.5-5.1) Chloride Level 110 MMOL/L (98-107) H Carbon Dioxide Level 22 MMOL/L (21-32) Anion Gap 14 mmol/L (5-15) Blood Urea Nitrogen 53 mg/dL (7-18) H Creatinine 2.8 MG/DL (0.55-1.30) H Estimat Glomerular Filtration Rate 20.2 mL/min (>60) Glucose Level 213 MG/DL (74-106) H Calcium Level 8.4 MG/DL (8.5-10.1) L Phosphorus Level 4.1 MG/DL (2.5-4.9) Magnesium Level 2.0 MG/DL (1.8-2.4) Total Bilirubin 0.6 MG/DL (0.2-1.0) Aspartate Amino Transf (AST/SGOT) 49 U/L (15-37) H Alanine Aminotransferase (ALT/SGPT) 24 U/L (12-78) Alkaline Phosphatase 194 U/L (46-116) H Pro-B-Type Natriuretic Peptide 9632 pg/mL (0-125) H Total Protein 6.5 G/DL (6.4-8.2) Albumin 1.7 G/DL (3.4-5.0) L Globulin 4.8 g/dL Albumin/Globulin Ratio 0.4 (1.0-2.7) L Microbiology Date/Time Source Procedure Growth Status 02/20/18 16:00 Urine,Clean Catch Urine Culture - Preliminary Resulted Kalin Rodriguez M.D. Feb 21, 2018 16:31
--- NOTE | 2018-02-21 17:06 | Neurology Progress Note ---
Interim History Interim History Interim History Ms. Mcpherson was sleeping. She could be aroused with painful stimuli. When aroused she stays awake briefly. She however is unresponsive. She is non-verbal. She is unable to follow any commands. She does not make eye contact. 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 Her PEG is functioning well. Plans are to send her to a SNF. Review of Systems Neuro Review of Systems Unable to obtain. Objective Physical Exam Last Vital Signs Date Time Temp Pulse Resp B/P (MAP) Pulse Ox O2 Delivery O2 Flow Rate FiO2 02/21/18 16:00 97.7 84 18 116/63 (80) 100 97.7 02/21/18 15:50 Nasal Cannula 2.0 28 Laboratory Tests Test 02/21/18 05:15 White Blood Count 9.0 K/UL (4.8-10.8) Red Blood Count 2.93 M/UL (4.20-5.40) L Hemoglobin 8.6 G/DL (12.0-16.0) L Hematocrit 26.6 % (37.0-47.0) L Mean Corpuscular Volume 91 FL (80-99) Mean Corpuscular Hemoglobin 29.5 PG (27.0-31.0) Mean Corpuscular Hemoglobin Concent 32.5 G/DL (32.0-36.0) Red Cell Distribution Width 16.2 % (11.6-14.8) H Platelet Count 159 K/UL (150-450) Mean Platelet Volume 6.6 FL (6.5-10.1) Neutrophils (%) (Auto) 83.5 % (45.0-75.0) H Lymphocytes (%) (Auto) 6.4 % (20.0-45.0) L Monocytes (%) (Auto) 9.1 % (1.0-10.0) Eosinophils (%) (Auto) 0.4 % (0.0-3.0) Basophils (%) (Auto) 0.7 % (0.0-2.0) Sodium Level 145 MMOL/L (136-145) Potassium Level 3.7 MMOL/L (3.5-5.1) Chloride Level 110 MMOL/L (98-107) H Carbon Dioxide Level 22 MMOL/L (21-32) Anion Gap 14 mmol/L (5-15) Blood Urea Nitrogen 53 mg/dL (7-18) H Creatinine 2.8 MG/DL (0.55-1.30) H Estimat Glomerular Filtration Rate 20.2 mL/min (>60) Glucose Level 213 MG/DL (74-106) H Calcium Level 8.4 MG/DL (8.5-10.1) L Phosphorus Level 4.1 MG/DL (2.5-4.9) Magnesium Level 2.0 MG/DL (1.8-2.4) Total Bilirubin 0.6 MG/DL (0.2-1.0) Aspartate Amino Transf (AST/SGOT) 49 U/L (15-37) H Alanine Aminotransferase (ALT/SGPT) 24 U/L (12-78) Alkaline Phosphatase 194 U/L (46-116) H Pro-B-Type Natriuretic Peptide 9632 pg/mL (0-125) H Total Protein 6.5 G/DL (6.4-8.2) Albumin 1.7 G/DL (3.4-5.0) L Globulin 4.8 g/dL Albumin/Globulin Ratio 0.4 (1.0-2.7) L Neurologic Exam Objective PHYSICAL EXAMINATION: GENERAL: She is a well-developed, relatively well-nourished, black lady, lying in bed, in no acute distress. HEAD: Normocephalic and atraumatic. EENT: Examination benign. NECK: No neck rigidity was observed. NEUROLOGICAL EXAMINATION: MENTAL STATUS EXAMINATION: When aroused, she was awake but not alert. She was non verbal. She was unable to follow simple commands. She was unable to cooperate for further mental status testing. SPEECH: She was mute. LANGUAGE: She was globally aphasic. CRANIAL NERVE EXAMINATION: II: She did not blink to threat. III, IV & : The external ocular movements were present but restricted. The pupils were 3 mm in diameter, equal, round, regular, and reactive to light. V & VII: The corneal reflex was diminished on the left side compared to the right. She also had left greater than right VII central facial paresis. VIII: She was able to hear sounds and had no nystagmus. IX & X: The gag reflex was present, but significantly delayed. XI: The sternocleidomastoids and trapezii did function. XII: The tongue was in the midline. MOTOR SYSTEM: The tone was spastic in all 4 extremities. Examination of muscle mass revealed no focal wasting. Examination of power was impossible to perform on individual muscle groups. The left upper extremity was plegic. The left lower extremity was severely paretic with minimal withdrawal on deep painful stimuli. The right upper and lower extremities were also significantly paretic with minimal withdrawal to deep pain. SENSORY EXAMINATION: She responded to deep pain with more robust responses on right-sided stimulation than left-sided stimulation, though all four extremities were not normal. REFLEXES: 3+ on the left and 2++ on the right at the biceps, triceps, brachioradialis, and knees. 0 at both ankles. The plantar responses were extensor bilaterally. COORDINATION, STANCE & GAIT: Could not be tested. Impression/Recommendations Diagnostic Impression 1. Ms. Janee Mcpherson is a 72-year-old, black lady, of unknown handedness, who does have a past history of hypertension, dyslipidemia, heart block - status post pacemaker implantation, coronary artery disease - status post percutaneous intervention and stent placement, atrial fibrillation, for which she was on Coumadin in the past and pancreatic cancer who approximately 1 month ago was taken to [facility] for a urinary tract infection and had a large right middle cerebral artery stroke there, and then was transferred to [facility] where she improved, and then to a usp where she started to deteriorate. She was brought into the [facility] emergency room for a decline in cognitive and motor function on 02/13/2018 and has since worsened more. 2. She was sleeping. She could be aroused with painful stimuli. When aroused she stays awake briefly. She however is unresponsive. She is non-verbal. She is unable to follow any commands. She does not make eye contact. 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 Her PEG is functioning well. Plans are to send her to a SNF. 3. On neurological examination, at this time, she can be aroused but is aphasic and mute. She is unable to follow simple commands. She is unable to cooperate for further mental status testing. She does not blink to threat, has a left greater than right VII central facial paresis, left upper extremity plegia, minimal left lower extremity movements, severe right upper extremity and right lower extremity weakness, pathologically brisk deep tendon reflexes, which are brisker on the left than on the right, and extensor plantar responses bilaterally. 4. The CT scan of the brain without contrast performed at [facility] on 02/13/2018 reveals a complete right middle cerebral artery territory infarct and in addition an infarct involving the right occipital area, which may be old. In addition, there is questionable brainstem pathology seen in the right dayana and midbrain. 5. As per Dr. Tarango the CT done on 02/16/18 reveals no acute pathology involving the left brain. Only reveals the old right brain strokes. 6. The CT of the brain done on 02/21/18 reveal a recent left MCA stroke in addition to the old right MCA and occipital strokes. 7. Laboratory data obtained thus far revealed that she is significantly anemic with a hemoglobin of 10.2 grams. The chemistry panel reveals a BUN elevated at 44 with a creatinine of 2.3. Her blood glucose elevated to 238, AST elevated to 86, alkaline phosphatase is elevated to 355, albumin low at 1.9, TSH is normal at 2.59. The urinalysis reveals 2+ leukocyte esterase, 2-4 RBCs and 5- 10 WBCs per high power field. 8. The EEG revealed right greater than left hemispheric dysfunction, focal right [id number] dysfunction, and bilateral frontotemporal polymorphic delta activity most probably due to a combination of the bilateral cerebral dysfunction and possibly an ongoing encephalopathic process. 9. The patient's history and neurological examination are most compatible with definite bilateral cerebral infarcts. The right brain infarct that occurred approximately 1 month ago is well visualized on the CT scan of the brain. The left infarct is also now visible on the CT in the MCA territory. Recommendations 1. Continue present management. 2. Physical, occupational and speech and language therapy. 3. Can restart anticoagulation from neurologic point of view. 4. Consider comfort care in light of the large bilateral cerebral infarcts. Riki Jacobs M.D., M.S.P.HRIKI BERNARDO Feb 21, 2018 17:05
== END 2018-02-21 17:19 | DRG 91 ==
LOC: EDBD 16:59 → EMR 17:15 → 4E 17:35 → EDBEDREQ 18:39 → 4W 02-15 20:15
PROC: 0DH63UZ Insertion of Feeding Device into Stomach, Percutaneous Approach (ICD-10-PCS; principal; 2018-02-19 10:13)
DX: G92 Toxic encephalopathy (principal); E43 Unspecified severe protein-calorie malnutrition; I69.354 Hemiplegia and hemiparesis following cerebral infarction affecting left non-dominant side; C25.9 Malignant neoplasm of pancreas, unspecified; R47.01 Aphasia; N17.9 Acute kidney failure, unspecified; I48.91 Unspecified atrial fibrillation; Z79.01 Long term (current) use of anticoagulants; I12.9 Hypertensive chronic kidney disease with stage 1 through stage 4 chronic kidney disease, or unspecified chronic kidney disease; E11.22 Type 2 diabetes mellitus with diabetic chronic kidney disease; N18.9 Chronic kidney disease, unspecified; I25.10 Atherosclerotic heart disease of native coronary artery without angina pectoris; Z95.5 Presence of coronary angioplasty implant and graft; D64.9 Anemia, unspecified; Z95.0 Presence of cardiac pacemaker; E78.5 Hyperlipidemia, unspecified; I45.9 Conduction disorder, unspecified; R62.7 Adult failure to thrive; K29.70 Gastritis, unspecified, without bleeding; E03.9 Hypothyroidism, unspecified; E86.0 Dehydration; R13.10 Dysphagia, unspecified
CPT/HCPCS: 36415; 36600; 70450; 71045; 74018; 76770; 80048; 80053; 80061; 81001; 81003; 82270; 82306; 82550; 82553; 82607; 82728; 82746; 82803; 82962; 82977; 83036; 83540; 83550; 83605; 83735; 83880; 84100; 84300; 84443; 84484; 84550; 85025; 85610; 85730; 86140; 87040; 87081; 87086; 87181; 89050; 93005; 93306; 93880; 93970; 94003; 94150; 94640; 94664; 94760; 95819; J1815; J3430; J8499; S5561